=== PATIENT | male | born 1955 | race African-American/Black ===

== ENCOUNTER → 2018-01-20 08:11 | Outpatient (CLI) | payer OTHER, SELFPAY ==
[2018-01-20 08:59] LABS: AST(SGOT) 19 U/L (15-37); Alanine Aminotransfer ALT/SGPT 26 U/L (16-61)
== END ==
PROVIDERS: Family Provider Family Medicine; PCP Family Medicine; Visit Provider Podiatrist
DX: B35.1 Tinea unguium (principal)
CPT/HCPCS: 36415; 84450; 84460

== ENCOUNTER → 2018-04-19 08:36 | Outpatient (CLI) | payer OTHER, SELFPAY ==
[2018-04-19 10:34] LABS: Absolute Lymphocyte Count 1.83 X10^3/ul (0.83-4.51); Absolute Neutrophil Count 1.1 X10^3/uL (2.0-7.7); Basophil# 0.01 X10^3/uL; Basophil% 0.3 % (0-1); Eosinophil# 0.05 X10^3/uL; Eosinophils% 1.5 % (0-5); Hematocrit 44.2 % (40-54); Hemoglobin 14.9 g/dl (13.0-16.5); Lymphocyte # 1.83 X10^3/ul (4.0); Lymphocyte % 55.8 % (19-41); Mean Corp Hgb Conc 33.7 g/gl (32-36); Mean Corpuscular Hgb 29.9 pg (27.0-32.0); Mean Corpuscular Volume 88.6 fL (80-94); Mean Platelet Vol. 10.8 fl (6.2-12.0); Monocyte# 0.31 X10^3/uL; Monocyte% 9.5 % (0-10); Neutrophil # 1.07 X10^3/uL (2.7-7.7); Neutrophil % 32.6 % (47-70); Platelet Count 169 K/mm3 (150-450); RBC Distribution Width CV 12.7 % (11.6-14.6); RBC Distribution Width SD 40.5 fl (35.1-43.9); Red Blood Count 4.99 M/mm3 (4.6-6.2); White Blood Count 3.3 K/mm3 (4.4-11.0)
[2018-04-19 10:36] LABS: POSITIVE COUNT NO; POSITIVE DIFFERENTIAL NO; POSITIVE MORPHOLOGY NO
[2018-04-19 11:02] LABS: Anion Gap 8 (5-15); BUN 18 mg/dL (7-18); BUN/Creat Ratio 19.9 RATIO (10-20); Calcium,Total 8.4 mg/dL (8.5-10.1); Chloride 106 mmol/L (98-107); Cholesterol 217 mg/dL (200); EST Glomerular Filtration Rate 91 mL/min (>60); Est Glom Filt Rate - Afr Amer 110 mL/min (>60); Glucose 94 mg/dL (74-106); High Density Lipoprotein 59 mg/dL; Potassium 3.6 mmol/L (3.5-5.1); Sodium Level 140 mmol/L (136-145); Thyroid Stim Hormone (TSH) 2.71 uIU/mL (0.358-3.74); Triglycerides 62 mg/dL; Very Low Density Lipoprotein 12 mg/dL (5-40)
== END ==
PROVIDERS: Family Provider Family Medicine; PCP Family Medicine; Visit Provider Family Medicine
DX: I10 Essential (primary) hypertension (principal); R00.2 Palpitations
CPT/HCPCS: 36415; 80048; 80061; 84443; 85025

== ENCOUNTER 2018-09-21 08:00 | Outpatient (RCR) | payer OTHER, SELFPAY ==
--- NOTE | 2018-08-17 10:29 | HP.PTEVAL ---
Patient's Visit Information ELBA KIRK is a 62 year old M referred to Physical Therapy by Shruthi Eldridge MD with a diagnosis of LUMBAR STRAIN. Date of Evaluation: 08/17/18 Physical Therapist: James Chaidez PT, - Visit Plan Frequency: 2x /Week Duration: 6 Weeks Plan: ARLETTE EX'S ,MANULA THERAPY ,PROGRESSION TO STABILIZATION,POSTURAL EX',MODALITIES NEEDED - Subjective Subjective: This 62 y/o male presenst to physical therapy with lumbar strain. Patient has had lumbar pain 10 years. Patient has been working at [employer] many years. Patient symptoms have been intermmtant with symptoms worse past 1 1/2. Patient had incidence of pain in lumbar bent over working in garage felt sharp pain. Patient bent over trimming toenails caused lumbar pain had to go to ER. Pain symmtrical lumbar . Symptoms worse with sitting,bending,lifting,. Symptoms better on the move walking. Coughing/sneezing +. Denies parathesia /tingling. Patient sleeping okay. Patient pain affects QOL ,job demands. SOCAIL : . VOCATION: [employer] - Pain Bilateral Back Pain Intensity (Out of 10): 2 Pain Intensity Range: 10 - Objective POSTURE: mild foward posture. GAIT: normal germán. NEURO: denies parathesia/tingling ,reflexes L3-4,L4-5,L5-S1. PALAPTION: unremarkable. SYMMTRIES: align. FLEXABLITY: hams min loss. LUMBAR ROM: flexion mod loss decrease curve reversal,extension min loss ,side gides min loss - Special Tests L/S Slump test left side: Negative L/S Slump test right side: Negative L/S Left Straight Leg Raise: Negative L/S Right Straight Leg Raise: Negative Lumbar Standing: Flexion - Mechanical Response: No effect Lumbar Standing: Flexion - Symptoms During Testing: Increases Lumbar Standing: Flexion - Symptoms After Testing: Worse Lumbar Standing: Extension - Mechanical Response: No effect Lumbar Standing: Extension - Symptoms During Testing: Decreases Lumbar Standing: Extension - Symptoms After Testing: Better Lumbar Standing: Right Side Glides - Mechanical Response: No effect Lumbar Standing: Right Side [place] - Symptoms During Testing: No effect Lumbar Standing: Right Side [place] - Symptoms After Testing: No effect Lumbar Standing: Left Side [place] - Mechanical Response: No effect Lumbar Standing: Left Side [place] - Symptoms During Testing: No effect Lumbar Standing: Left Side [place] - Symptoms After Testing: No effect Lumbar Lying: Flexion - Mechanical Response: No effect Lumbar Lying: Flexion - Symptoms During Testing: No effect Lumbar Lying: Flexion - Symptoms After Testing: No effect Lumbar Lying: Extension - Mechanical Response: No effect Lumbar Lying: Extension - Symptoms During Testing: Increases Lumbar Lying: Extension - Symptoms After Testing: Better - Goals Goal 1:: Independant with HEP Goal Time Frame: 4-6 Weeks Goal 2:: Patient to be Independant with posture/bodu mechanics Goal Time Frame: 4-6 Weeks Goal 3:: Patient to decrease lumbar pain by 70% or greater to improve funnction Goal Time Frame: 4-6 Weeks Goal 4:: Patient to improve lumbar ROM WFL for function of recovery Goal Time Frame: 4-6 Weeks Goal 5:: Patient to be d/c to prophalaxis Goal Time Frame: 4-6 Weeks Goal 6:: Patient be able to perform ADLS and job demands with no linmiations Goal Time Frame: 4-6 Weeks - Rehabilitation Potential Physical Therapy Diagnosis: This 62 y/o male presenst with derrangement symmtriacl with decrease lumbar ROM,pain ,. worse with flexion ,decrease with extension ,and postural correction. Rehabilitation Potential: Good - Anticipated Interventions Patient/Client Instruction: Educate patient on: Condition, Plan of Care For the Purpose of:: To decrease pain, To increase ROM, To improve muscle performance and motor function, To improve ability to perform ADL's, To increase tolerance to activity/condition/position, To improve ability of physical actions for home/community/work/leisure, To improve health of tissue, To decrease soft tissue restriction, To increase flexibility/ROM, To reduce risk of recurrence, To improve ability to perform tasks related to life management Therapeutic Exercise to Include: Strength training, Body mechanics, Postural training, Flexibilty training, Dynamic Lumbar Stabilization, Arlette Exercises For the Purpose of:: To decrease pain, To increase ROM, To improve muscle performance and motor function, To increase tolerance to activity/condition/position, To improve performance and independence with ADL's, To improve ability of physical actions for home/community/work/leisure, To improve gait and locomotor functions, To increase flexibility/ROM, To reduce risk of recurrence, To improve ability to perform tasks related to life management Manual Therapy Techniques to Include: Mobilization Comment: LUMBAR For the Purpose of:: To decrease pain, To increase ROM, To improve health of tissue, To decrease soft tissue restriction, To increase flexibility/ROM TENS: Yes IF ES: Yes Cryotherapy (ice pack, ice massage): Yes Thermo therapy (hot pack): Yes Ultrasound (thermal/non thermal): Yes For the Purpose of:: To decrease pain, To increase ROM, To improve health of tissue, To decrease soft tissue restriction Thank you for the opportunity to evaluate your patient. For Medicare and Medicare HMO plans, please review the plan of care and approve it. It will need to be FAXED BACK to us at [phone] for Medicare purposes. Please let me know if there are questions or concerns regarding this plan of care. Physician Signature: Date:
--- NOTE | 2018-09-21 09:34 | HP.PTDCSUM ---
HP - PT D/C Summary It has been my pleasure to treat ELBA KIRK under orders from Shruthi Eldridge MD, for the diagnosis of LUMBAR STRAIN for a total of 9 visit(s). Discharge Date: 09/21/18 Please see the following information for a summary of their discharge status. - Subjective Subjective: Doing good ..no pain except when I sit some soreness - Pain Bilateral Back Pain Intensity (Out of 10): 0 - Overall Improvement % Improvement: 75 - Objective Objective/Function: POSTURE:mild foward posture. GAIT: mild foward reciprocal pattern. NEURO:intact. MMT: quads/hams/hip 4/5. LUMBAR ROM: flexion min loss,extension min loss,side glides min loss. -SLR - Goals Goal 1:: Independant with HEP Goal Progress: Goal Met Goal 2:: Patient to be Independant with posture/bodu mechanics Goal Progress: Goal Met Goal 3:: Patient to decrease lumbar pain by 70% or greater to improve funnction Goal Progress: Goal Met Goal 4:: Patient to improve lumbar ROM WFL for function of recovery Goal Progress: Goal Met Goal 5:: Patient to be d/c to prophalaxis Goal Progress: Goal Met Goal 6:: Patient be able to perform ADLS and job demands with no linmiations Goal Progress: Goal Met - Plan Plan: D/C - D/C Information Discharge Comments: HEP If there are questions or concerns regarding this patient's physical therapy, please feel free to call me at [phone]. Thank you for the referral of this patient. Sincerely, James Chaidez, PT,
== END 2018-09-21 19:00 | disposition home or self-care (01) ==
LOC: PT 08:00
PROVIDERS: Family Provider Family Medicine; PCP Family Medicine; Referring Provider Family Medicine; Visit Provider Family Medicine
DX: S39.012D Strain of muscle, fascia and tendon of lower back, subsequent encounter (principal)
CPT/HCPCS: 97014; 97035; 97110; 97161; 97530; G0283

== ENCOUNTER → 2018-10-20 08:28 | Outpatient (CLI) | payer OTHER, SELFPAY ==
[2018-10-20 10:43] LABS: Anion Gap 9 (5-15); BUN 19 mg/dL (7-18); BUN/Creat Ratio 19.7 RATIO (10-20); Calcium,Total 8.9 mg/dL (8.5-10.1); Chloride 103 mmol/L (98-107); Creatinine, Serum 0.97 mg/dL (0.70-1.30); EST Glomerular Filtration Rate 84 mL/min (>60); Est Glom Filt Rate - Afr Amer 102 mL/min (>60); Glucose 108 mg/dL (74-106); Potassium 3.4 mmol/L (3.5-5.1); Sodium Level 141 mmol/L (136-145)
== END ==
PROVIDERS: Family Provider Family Medicine; PCP Family Medicine; Referring Provider Family Medicine; Visit Provider Family Medicine
DX: I10 Essential (primary) hypertension (principal)
CPT/HCPCS: 36415; 80048

== ENCOUNTER → 2018-11-15 08:55 | Outpatient (CLI) | payer OTHER, SELFPAY ==
[2017-06-19 16:36] VITALS: BMI 27.2
[2018-11-15 10:06] LABS: Absolute Lymphocyte Count 2.05 X10^3/ul (0.83-4.51); Basophil# 0.01 X10^3/uL; Basophil% 0.3 % (0-1); Eosinophil# 0.24 X10^3/uL; Eosinophils% 6.2 % (0-5); Hematocrit 46.8 % (40-54); Hemoglobin 16.1 g/dl (13.0-16.5); Lymphocyte # 2.05 X10^3/ul (4.0); Lymphocyte % 52.8 % (19-41); Mean Corp Hgb Conc 34.4 g/gl (32-36); Mean Corpuscular Hgb 30.3 pg (27.0-32.0); Mean Platelet Vol. 10.9 fl (6.2-12.0); Monocyte# 0.54 X10^3/uL; Monocyte% 13.9 % (0-10); Neutrophil # 1.04 X10^3/uL (2.7-7.7); Neutrophil % 26.8 % (47-70); POSITIVE COUNT NO; POSITIVE DIFFERENTIAL NO; POSITIVE MORPHOLOGY NO; Platelet Count 192 K/mm3 (150-450); RBC Distribution Width CV 12.4 % (11.6-14.6); RBC Distribution Width SD 40.1 fl (35.1-43.9); Red Blood Count 5.32 M/mm3 (4.6-6.2); White Blood Count 3.9 K/mm3 (4.4-11.0)
[2018-11-15 10:23] LABS: AST(SGOT) 18 U/L (15-37); Alanine Aminotransfer ALT/SGPT 33 U/L (16-61); Albumin, Serum 3.6 g/dL (3.2-5.0); Alkaline Phosphatase 56 U/L (45-117); Anion Gap 7 (5-15); BUN 19 mg/dL (7-18); BUN/Creat Ratio 18.8 RATIO (10-20); Calcium,Total 8.6 mg/dL (8.5-10.1); Chloride 105 mmol/L (98-107); Creatinine, Serum 1.01 mg/dL (0.70-1.30); EST Glomerular Filtration Rate 80 mL/min (>60); Est Glom Filt Rate - Afr Amer 97 mL/min (>60); Globulin 3.5 g/dL (2.2-4.2); Glucose 91 mg/dL (74-106); PSA,Total - Annual Screen 2.37 ng/mL (0.00-4.00); Protein, Total 7.1 g/dL (6.4-8.2); Sodium Level 141 mmol/L (136-145); Thyroid Stim Hormone (TSH) 2.86 uIU/mL (0.358-3.74)
== END ==
PROVIDERS: Family Provider Family Medicine; PCP Family Medicine; Visit Provider Family Medicine
DX: L65.9 Nonscarring hair loss, unspecified (principal)
CPT/HCPCS: 36415; 80053; 84153; 84443; 85025; G0103

== ENCOUNTER → 2019-07-10 09:00 | Outpatient (CLI) | payer OTHER, SELFPAY ==
[2017-06-19 16:36] VITALS: BMI 27.2
[2019-07-10 10:12] LABS: Absolute Lymphocyte Count 1.89 X10^3/uL (0.83-4.51); Absolute Neutrophil Count 1.6 X10^3/uL (2.0-7.7); Basophil# 0.02 X10^3/uL; Basophil% 0.5 % (0-1); Eosinophil# 0.08 X10^3/uL; Eosinophils% 1.9 % (0-5); Hematocrit 45.2 % (40-54); Hemoglobin 15.4 g/dL (13.0-16.5); Lymphocyte # 1.89 X10^3/ul (4.0); Lymphocyte % 45.9 % (19-41); Mean Corp Hgb Conc 34.1 g/dL (32-36); Mean Corpuscular Hgb 30.6 pg (27.0-32.0); Mean Corpuscular Volume 89.7 fL (80-94); Monocyte% 12.1 % (0-10); NRBC Flagged by Analyzer 0 % (0-5); Neutrophil # 1.62 X10^3/uL (2.7-7.7); Neutrophil % 39.4 % (47-70); Platelet Count 180 K/mm3 (150-450); RBC Distribution Width CV 11.9 % (11.6-14.6); RBC Distribution Width SD 39.3 fl (35.1-43.9); Red Blood Count 5.04 M/mm3 (4.6-6.2); White Blood Count 4.1 K/mm3 (4.4-11.0)
[2019-07-10 10:31] LABS: Anion Gap 4 (5-15); BUN 15 mg/dL (7-18); BUN/Creat Ratio 15.9 RATIO (10-20); Calcium,Total 8.8 mg/dL (8.5-10.1); Chloride 107 mmol/L (98-107); Creatinine, Serum 0.95 mg/dL (0.70-1.30); EST Glomerular Filtration Rate 86 mL/min (>60); Est Glom Filt Rate - Afr Amer 104 mL/min (>60); Glucose 97 mg/dL (74-106); PSA,Total - Annual Screen 2.92 ng/mL (0.00-4.00); Potassium 3.7 mmol/L (3.5-5.1); Sodium Level 139 mmol/L (136-145)
== END ==
PROVIDERS: Family Provider Family Medicine; PCP Family Medicine; Referring Provider Family Medicine; Visit Provider Family Medicine
DX: Z00.00 Encounter for general adult medical examination without abnormal findings (principal); I10 Essential (primary) hypertension; D72.819 Decreased white blood cell count, unspecified
CPT/HCPCS: 36415; 80048; 84153; 85025; G0103

== ENCOUNTER → 2020-01-23 | Outpatient (CLI) | payer OTHER, SELFPAY ==
[2017-06-19 16:36] VITALS: BMI 27.2
== END | disposition home or self-care (01) ==
LOC: LABSPEC 15:15
PROVIDERS: PCP Family Medicine; Referring Provider Family Medicine; Visit Provider Family Medicine
DX: J02.9 Acute pharyngitis, unspecified (principal)
CPT/HCPCS: 87070; 87077

== ENCOUNTER → 2020-09-02 08:07 | Outpatient (CLI) | payer OTHER, SELFPAY ==
[2020-09-02 10:01] LABS: Absolute Lymphocyte Count 1.68 X10^3/uL (0.83-4.51); Absolute Neutrophil Count 1.4 X10^3/uL (2.0-7.7); Basophil# 0.03 X10^3/uL; Basophil% 0.8 % (0-1); Eosinophil# 0.23 X10^3/uL; Hemoglobin 16.2 g/dL (13.0-16.5); Lymphocyte # 1.68 X10^3/ul (4.0); Mean Corp Hgb Conc 33.1 g/dL (32-36); Mean Corpuscular Hgb 29.6 pg (27.0-32.0); Mean Corpuscular Volume 89.6 fL (80-94); Mean Platelet Vol. 11.9 fl (6.2-12.0); Monocyte# 0.44 X10^3/uL; Monocyte% 11.5 % (0-10); NRBC Flagged by Analyzer 0 % (0-5); Neutrophil # 1.43 X10^3/uL (2.7-7.7); Neutrophil % 37.4 % (47-70); Platelet Count 183 K/mm3 (150-450); RBC Distribution Width CV 12.2 % (11.6-14.6); RBC Distribution Width SD 40.4 fl (35.1-43.9); Red Blood Count 5.47 M/mm3 (4.6-6.2); White Blood Count 3.8 K/mm3 (4.4-11.0)
[2020-09-02 10:32] LABS: Anion Gap 8 (5-15); BUN 9 mg/dL (7-18); Calcium,Total 9.2 mg/dL (8.5-10.1); Chloride 105 mmol/L (98-107); Cholesterol 218 mg/dL (200); Creatinine, Serum 1.12 mg/dL (0.70-1.30); EST Glomerular Filtration Rate 70 mL/min (>60); Est Glom Filt Rate - Afr Amer 85 mL/min (>60); Glucose 90 mg/dL (74-106); High Density Lipoprotein 62 mg/dL; PSA,Total - Annual Screen 2.55 ng/mL (0.00-4.00); Potassium 3.5 mmol/L (3.5-5.1); Sodium Level 139 mmol/L (136-145); Triglycerides 79 mg/dL; Very Low Density Lipoprotein 16 mg/dL (5-40)
== END ==
PROVIDERS: PCP Family Medicine; Visit Provider Family Medicine
DX: Z00.00 Encounter for general adult medical examination without abnormal findings (principal); I10 Essential (primary) hypertension; D72.819 Decreased white blood cell count, unspecified; Z12.5 Encounter for screening for malignant neoplasm of prostate
CPT/HCPCS: 36415; 80048; 80061; 84153; 85025; G0103

== ENCOUNTER → 2020-09-18 10:08 | Outpatient (CLI) | payer OTHER, SELFPAY ==
[2020-09-18 09:21] VITALS: BMI 26.7
== END ==
PROVIDERS: PCP Family Medicine; Referring Provider Internal Medicine Cardiovascular Disease; Visit Provider Internal Medicine Cardiovascular Disease
DX: R00.2 Palpitations (principal)
CPT/HCPCS: 36415; 84443

== ENCOUNTER → 2020-10-08 07:58 | Outpatient (CLI) | payer OTHER, SELFPAY ==
[2020-09-18 09:21] VITALS: BMI 26.7
--- NOTE | 2020-10-08 07:59 | ECHOD_ITS ---
Reason For Study: Arrhythmia Procedure This was a 2D Doppler, Color Flow transthoracic echocardiogram. Exam performed in department. Left Ventricle Normal LV size. Left ventricular systolic function is normal. The estimated ejection fraction is 60 %. No regional wall motion abnormalities noted. Right Ventricle Normal RV size. Normal systolic function. Atria Normal left atrium. Normal right atrium. Mitral Valve Normal mitral valve. Trivial mitral valve insufficiency. Tricuspid Valve Normal tricuspid valve. Mild (1+) tricuspid valve insufficiency. Pulmonary artery systolic pressure is 28 mmHg. Aortic Valve Normal aortic valve. Trisinus/trileaflet aortic valve. Pulmonic Valve The pulmonic valve is not well visualized. Great Vessels Normal aortic root. The pulmonary artery is normal size. Normal inferior vena cava. Pericardium/Pleural No pericardial effusion. MMode/2D Measurements & Calculations LVIDd: 4.4 cm IVSd: 0.99 cm Ao root diam: 3.1 cm LVIDs: 2.8 cm LVPWd: 0.99 cm RVDd: 3.7 cm FS: 36.9 % LAV(MOD-bp): 59.8 ml LVAd ap4: 31.1 cm2 SV(MOD-sp4): 56.2 ml LAV(MOD-bp) Indexed: 28.7 ml/m2 EDV(MOD-sp4): 93.3 ml LAV(MOD-sp2): 66.0 ml EDV(sp4-el): 95.2 ml LAV(MOD-sp4): 51.9 ml LVAs ap4: 17.2 cm2 ESV(MOD-sp4): 37.1 ml ESV(sp4-el): 34.5 ml EF(MOD-sp4): 60.3 % EF(sp4-el): 63.7 % SV(sp4-el): 60.7 ml LA A4 area: 18.7 cm2 LA dimension(2D): 3.6 cm RA A4 area: 16.8 cm2 Doppler Measurements & Calculations MV E max dwayne: 72.9 cm/sec Lat Peak E' Dwayne: 10.2 cm/sec Ao V2 max: 150.1 cm/sec MV A max dwayne: 50.5 cm/sec E/E' lat: 7.2 Ao max P.0 mmHg MV E/A: 1.4 PA V2 max: 119.2 cm/sec TR max dwayne: 244.6 cm/sec TR max P.9 mmHg Interpretation Summary Normal LV size. Left ventricular systolic function is normal. The estimated ejection fraction is 60 %. Pulmonary artery systolic pressure is 28 mmHg. Mild (1+) tricuspid valve insufficiency. Ordering Physician: Pradip Reyes Referring Physician: Shruthi Eldridge M.D. Performed By: Lachelle Sol RDCS
== END ==
PROVIDERS: PCP Family Medicine; Referring Provider Internal Medicine Cardiovascular Disease; Visit Provider Internal Medicine Cardiovascular Disease
DX: R00.2 Palpitations (principal)
CPT/HCPCS: 93225; 93226; 93306

== ENCOUNTER 2020-12-02 08:46 | Day surgery (SDC) | payer OTHER, SELFPAY ==
[2020-11-11 08:57] VITALS: BMI 26.2
--- NOTE | 2020-11-29 09:44 | EKG12_ITS ---
Test Reason : PREOP Blood Pressure : / mmHG Vent. Rate : 089 BPM Atrial Rate : 277 BPM P-R Int : 000 ms QRS Dur : 090 ms QT Int : 346 ms P-R-T Axes : 000 019 028 degrees QTc Int : 420 ms Atrial fibrillation Abnormal ECG Confirmed by NUZHAT CODY, HAMILTON ([id number]), design editor CHICHO HERNÁNDEZ ([id number]) on 12/02/2020 11:00:02 AM Referred By: Abdelrahman Zaman Confirmed By:AVELINA NOLAND MD
[2020-11-29 09:57] LABS: Hematocrit 47.9 % (40-54); Hemoglobin 16.4 g/dL (13.0-16.5); Mean Corp Hgb Conc 34.2 g/dL (32-36); Mean Corpuscular Hgb 30.3 pg (27.0-32.0); Mean Corpuscular Volume 88.5 fL (80-94); Mean Platelet Vol. 11.4 fl (6.2-12.0); Platelet Count 178 K/mm3 (150-450); RBC Distribution Width CV 11.8 % (11.6-14.6); RBC Distribution Width SD 38.2 fl (35.1-43.9); Red Blood Count 5.41 M/mm3 (4.6-6.2); White Blood Count 3.7 K/mm3 (4.4-11.0)
[2020-11-29 10:43] LABS: Anion Gap 4 (5-15); BUN 18 mg/dL (7-18); Calcium,Total 9.1 mg/dL (8.5-10.1); Chloride 104 mmol/L (98-107); Creatinine, Serum 1.06 mg/dL (0.70-1.30); EST Glomerular Filtration Rate 75 mL/min (>60); Est Glom Filt Rate - Afr Amer 91 mL/min (>60); Glucose 87 mg/dL (74-106); Potassium 3.6 mmol/L (3.5-5.1); Sodium Level 138 mmol/L (136-145)
[2020-12-02] VITALS (7 sets, daily range): BP systolic 125–142; BP diastolic 79–90; PULSE 64–71; RESP 16; TEMP 35.9–36.8; O2SAT 99–100; BMI 27.9
--- NOTE | 2020-12-02 05:00 | HP_ITS ---
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 Is patient in pain?: No Allergies No Known Allergies Allergy (Verified 11/11/20 08:58) Medications Amlodipine [Norvasc] 10 mg PO DAILY 06/19/17 [History Confirmed 11/11/20] Enalapril/Hydrochlorothiazide [Enalapril-Hctz 10-25 mg Tablet] 1 tab PO DAILY 06/19/17 [History Confirmed 11/11/20] ibuprofen 600 mg tablet 600 mg PO TID PRN 09/16/20 [History Confirmed 11/11/20] magnesium oxide 500 mg tablet 500 mg PO DAILY 09/16/20 [History Confirmed 11/11/20] zinc 50 mg tablet 50 mg PO DAILY 09/16/20 [History Confirmed 11/11/20] cholecalciferol (vitamin D3) 125 mcg (5,000 unit) capsule 125 mcg PO DAILY 09/18/20 [History Confirmed 11/11/20] [facility] Medical History (Updated 11/11/20 @ 08:57 by Nisa Ramirez) Palpitations (Acute) Essential hypertension (Chronic) Leukopenia (Chronic) Hair loss (Chronic) Back pain (Acute) Osteoarthritis (Acute) Surgical History (Updated 11/11/20 @ 08:57 by Nisa Ramirez) History of excision of epidermal inclusion cyst (Resolved) History of colonoscopy (Acute ~2017) History of surgery on left wrist (Acute) Family History Mother Hypertension Diabetes Brother Hypertension Diabetes Social History (Updated 11/11/20 @ 09:[address] Abdelrahman Zaman MD) Smoking Status: Never smoker alcohol intake: current details: Rarely substance use type: does not use caffeine: Yes (2 cups) Type: coffee HPI HPI HPI: ELBA KIRK, is a 64 M who presents to the office today for HPI HPI Surgical H&P: Yes HPI: ELBA KIRK, is a 64 M who presents to the office today for left groin bulging. The patient has been had left groin bulging especially with lifting for the last year. He does report some discomfort as well. He says he intermittently has a little bit of mild discomfort on the opposite side but no bulging. Patient does not have any nausea or vomiting or fevers or chills at this time. He has no Covid contacts. Patient reports that the pain radiates up into his abdomen. ROS General General: No weight change, appetite, fatigue, colon cancer, breast cancer or weakness HEENT HEENT: No difficulty swallowing, eye injury, eye surgery, swollen glands or hoarseness Endo Endocrine: No thyroid disease, diabetes mellitus, thyroid cancer, Hair loss, heat intolerance or cold intolerance Musc Musculoskeletal: Yes back problems, arthritis and rheumatoid arthritis; no gout or joint pain Cardio Cardiovascular: Yes high blood pressure; no murmur, pacemaker, heart disease, atrial fibrillation, heart attack, heart stent, palpitations, shortness of breat with exertion or chest pain Psych Psychiatric: No depression, anxiety or hearing voices Resp Respiratory: No shortness of breath, No sleep apnea, No cough, No COPD, No asthma, No emphysema, No wheezing Gastro Gastrointestinal: No abdominal pain, No nausea or vomiting, No diarrhea, No constipation, No blood in stool, No acid reflux, No hemorrhoids, No ulcers, No gallbladder problem, No black,tarry stools Jorge Hematologic: No blood thinners, No blood disorders, No bleeding, No anemia, No blood clots Neuro Neurologic: No weakness Exam Const General: cooperative Orientation: alert, oriented x3 HENMT Head: normal to inspection Ears: hearing grossly normal bilaterally Eyes General: appearance normal, both eyes and all related structures Visual Tripp: normal visual tripp by confrontation Neck Neck: normal visual inspection Chest Chest palpation & inspection: normal inspection of the chest Resp Effort & Inspection: normal respiratory effort Auscultation: clear to auscultation bilaterally Cardio Rate: regular rate Rhythm: regular rhythm Heart Sounds: no murmurs GI Inspection: non-distended Palpation: soft, hernia indirect inguinal on the left, nontender Musc Cervical Spine: normal cervical lordosis, cervical ROM normal Skin General: no rashes or lesions noted Neuro General: alert, oriented x3 Cranial Nerves: CN's II-XI intact bilaterally Cognition: normal cognition Extrem General: normal to inspection, full ROM Psych Appearance: grossly normal Affect: normal affect Assessment & Plan Problems 1. Inguinal hernia, left K40.90 Plan The patient has a soft reducible left inguinal hernia. I discussed left inguinal hernia repair with him in detail. I discussed robotic assisted laparoscopic approach. The patient understands and would like to proceed. I discussed the risks of the procedure including but not limited to bleeding, infection, chronic groin pain, injury to spermatic cord, injury to underlying bowel or bladder. The patient would also like contralateral hernia repaired if it is present. We will schedule for robotic assisted laparoscopic left inguinal hernia repair with mesh, possible bilateral. We discussed the current risks associated with COVID-19. While it is understood that there is a community spread of COVID-19, the risk of radha COVID-19 while at [facility] ([facility]) is very low; however, the risk cannot be completely mitigated because of the community spread of the disease. We discussed in detail the risk of exposure to and/or potential harm posed by the COVID-19 virus with having a surgery/procedure at this time versus the risk of delaying the surgery/procedure. It is not possible to know either the risk of delaying the surgery or procedure or chance of getting an infection with perfect accuracy, but a joint decision was made to proceed at this time with the scheduled surgery/procedure as indicated on the consent form. Patient was notified that we will need to comply with any screening or testing [facility] wishes to perform or that surgery may be delayed for any positive results. Abdelrahman Zaman MD Pager: [facility] [address] [place] [address], [address] [place] [address] Office: Coding Level of Care Code Off vis,new,level 4 Diagnoses Inguinal hernia, left K40.90 Time Spent (min) 45 I have re-examined the patient. There are no clinical changes since date of exam.
[2020-12-02] MEDS: Lactated Ringers 1,000 ML 100 ML IV (09:32)
[2020-12-02] MEDS: Cefazolin 2 GM in 0.9% Normal Saline 100 ML IV (10:24)
[2020-12-02] MEDS: Bupivacaine Mpf 0.5% 30 ML VIAL (10:45)
--- NOTE | 2020-12-02 11:31 | PN_ITS ---
Progress Note An addendum to the H&P I did discuss with him prior to surgery possible bilateral hernia repair if the right inguinal hernia is present and he did want to proceed with right inguinal hernia repair if it is present. Abdelrahman Zaman MD Pager: [facility] [address] [place] [address], [address] [place] [address] Office: STROKE Vital Signs/Narrative: Vital Signs Temp Pulse Resp BP Pulse Ox 12/02/20 09:24 98.3 F 69 16 128/87 H 100
--- NOTE | 2020-12-02 11:31 | PCM.PN.BLA ---
Progress Note An addendum to the H&P I did discuss with him prior to surgery possible bilateral hernia repair if the right inguinal hernia is present and he did want to proceed with right inguinal hernia repair if it is present. Abdelrahman Zaman MD Pager: [facility] [address] [place] [address], [address] [place] [address] Office: STROKE Vital Signs/Narrative: Vital Signs Temp Pulse Resp BP Pulse Ox 12/02/20 09:24 98.3 F 69 16 128/87 H 100
--- NOTE | 2020-12-02 11:34 | PCM.OPRPT ---
Problem List (1) Left inguinal hernia Status: Acute Report of Operation Date of Procedure: 12/02/20 Pre-Operative Diagnosis: Left inguinal hernia Post-Operative Diagnosis: Bilateral inguinal hernia with distended small and large bowel Surgery/Procedure Performed:: Exploratory laparoscopy Description of Procedure: Patient was brought back to the operating room and general anesthesia was induced. The abdomen was prepped and draped in usual sterile fashion. An area superior to the umbilicus was selected and a small vertical incision was made. The fascia was elevated and Veress needle was placed into the abdomen without any resistance. A drop test was performed and there is no aspirated fluid and saline flowed easily. The abdomen was insufflated to 15 mmHg. The Veress needle was removed and port and camera port was placed into the abdomen. The abdomen was inspected and there was largely distended small and large bowel. The abdomen was inspected closely and there appeared to be no succus or injury to the small bowel. The distal small bowel appeared very distended as did the entire right transverse and descending colon and into the sigmoid colon. It did not appear to be insufflated with air but rather fluid contents. I was unable to perform laparoscopic repair. The patient did have bilateral inguinal hernias. I discussed this with the patient's and she did not want me to convert to open repair. She believe that he would not want an open repair and I did not discuss open repair with him. At this point I remove the camera from the abdomen as well as the port and the air is allowed to desufflate. The ventral incision was closed with 4-0 Monocryl suture and Steri-Strips and injected with local anesthesia. The patient was then awoken and taken to PACU in stable condition and will follow up with me for discussion of repeat surgery with bowel prep. - Admit VTE Documentation VTE Mechan Device Prophylaxis: SCD's
--- NOTE | 2020-12-02 11:39 | DCINST_ITS ---
Discharge Diet: Light diet - advance as tolerated Discharge Activity: Return to Normal Activity, May Shower May shower in (days): 1 Call your doctor if your incision/area has: Continuous Slow Oozing, Sudden Increased Bleeding, Increased Pain/ Swelling, Increased Redness, Foul Smelling D ischarge, Swelling at the incision site Call your doctor if you observe: Fever of 101 or Higher Suture Line Care: Avoid Pulling/Pushing, Avoid Pinching/Bending Change Dressing in (Days):: 2 - Leave steri-strips in place for 1 week. Allergies/Adverse Reactions: Allergies No Known Allergies Allergy (Verified 12/02/20 08:58) Medications to take at Discharge Amlodipine [Norvasc] 10 mg PO DAILY 06/19/17 Enalapril/Hydrochlorothiazide [Enalapril-Hctz 10-25 mg Tablet] 1 tab PO DAILY 06/19/17 ibuprofen 600 mg tablet 600 mg PO TID PRN 09/16/20 magnesium oxide 500 mg tablet 500 mg PO DAILY 09/16/20 zinc 50 mg tablet 50 mg PO DAILY 09/16/20 cholecalciferol (vitamin D3) 125 mcg (5,000 unit) capsule 125 mcg PO DAILY 09/18/20 Primary Care Physician: Shruthi Eldridge MD [Primary Care Provider] - Test Results: Test results from this visit will be discussed in further detail at your follow- up appointment, if applicable. Please Follow Up With: Abdelrahman Zaman MD When: Call for phone appointment to discuss rescheduling surgery [phone]
== END 2020-12-02 13:13 | disposition home or self-care (01) ==
LOC: SDC 08:46 → AC 08:47
PROVIDERS: Anesthesiology; PCP Family Medicine; Referring Provider Surgery; Visit Provider Surgery
PROC: (CPT 49320; principal; 2020-12-02 10:10)
DX: K40.20 Bilateral inguinal hernia, without obstruction or gangrene, not specified as recurrent (principal); Z53.8 Procedure and treatment not carried out for other reasons; Z20.822 Contact with and (suspected) exposure to COVID-19; I48.91 Unspecified atrial fibrillation; I10 Essential (primary) hypertension; Z79.899 Other long term (current) drug therapy; M19.90 Unspecified osteoarthritis, unspecified site
CPT/HCPCS: 00840; 49320; 36415; 80048; 85027; 87426; 93005; C9803; J7120; J2405

== ENCOUNTER 2020-12-05 08:42 | Day surgery (SDC) | payer OTHER, SELFPAY ==
[2020-12-02 09:24] VITALS: BMI 27.9
[2020-12-05] VITALS (8 sets, daily range): BP systolic 119–143; BP diastolic 75–85; PULSE 60–78; RESP 16–116; TEMP 36.4–37; O2SAT 97–100; BMI 27.4
--- NOTE | 2020-12-05 06:00 | HP_ITS ---
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 Is patient in pain?: No Allergies No Known Allergies Allergy (Verified 11/11/20 08:58) Medications Amlodipine [Norvasc] 10 mg PO DAILY 06/19/17 [History Confirmed 11/11/20] Enalapril/Hydrochlorothiazide [Enalapril-Hctz 10-25 mg Tablet] 1 tab PO DAILY 06/19/17 [History Confirmed 11/11/20] ibuprofen 600 mg tablet 600 mg PO TID PRN 09/16/20 [History Confirmed 11/11/20] magnesium oxide 500 mg tablet 500 mg PO DAILY 09/16/20 [History Confirmed 11/11/20] zinc 50 mg tablet 50 mg PO DAILY 09/16/20 [History Confirmed 11/11/20] cholecalciferol (vitamin D3) 125 mcg (5,000 unit) capsule 125 mcg PO DAILY 09/18/20 [History Confirmed 11/11/20] [facility] Medical History (Updated 11/11/20 @ 08:57 by Nisa Ramirez) Palpitations (Acute) Essential hypertension (Chronic) Leukopenia (Chronic) Hair loss (Chronic) Back pain (Acute) Osteoarthritis (Acute) Surgical History (Updated 11/11/20 @ 08:57 by Nisa Ramirez) History of excision of epidermal inclusion cyst (Resolved) History of colonoscopy (Acute ~2017) History of surgery on left wrist (Acute) Family History Mother Hypertension Diabetes Brother Hypertension Diabetes Social History (Updated 11/11/20 @ 09:[address] Abdelrahman Zaman MD) Smoking Status: Never smoker alcohol intake: current details: Rarely substance use type: does not use caffeine: Yes (2 cups) Type: coffee HPI HPI HPI: ELBA KIRK, is a 64 M who presents to the office today for HPI HPI Surgical H&P: Yes HPI: ELBA KIRK, is a 64 M who presents to the office today for left groin bulging. The patient has been had left groin bulging especially with lifting for the last year. He does report some discomfort as well. He says he intermittently has a little bit of mild discomfort on the opposite side but no bulging. Patient does not have any nausea or vomiting or fevers or chills at this time. He has no Covid contacts. Patient reports that the pain radiates up into his abdomen. ROS General General: No weight change, appetite, fatigue, colon cancer, breast cancer or weakness HEENT HEENT: No difficulty swallowing, eye injury, eye surgery, swollen glands or hoarseness Endo Endocrine: No thyroid disease, diabetes mellitus, thyroid cancer, Hair loss, heat intolerance or cold intolerance Musc Musculoskeletal: Yes back problems, arthritis and rheumatoid arthritis; no gout or joint pain Cardio Cardiovascular: Yes high blood pressure; no murmur, pacemaker, heart disease, atrial fibrillation, heart attack, heart stent, palpitations, shortness of breat with exertion or chest pain Psych Psychiatric: No depression, anxiety or hearing voices Resp Respiratory: No shortness of breath, No sleep apnea, No cough, No COPD, No asthma, No emphysema, No wheezing Gastro Gastrointestinal: No abdominal pain, No nausea or vomiting, No diarrhea, No constipation, No blood in stool, No acid reflux, No hemorrhoids, No ulcers, No gallbladder problem, No black,tarry stools Jorge Hematologic: No blood thinners, No blood disorders, No bleeding, No anemia, No blood clots Neuro Neurologic: No weakness Exam Const General: cooperative Orientation: alert, oriented x3 HENMT Head: normal to inspection Ears: hearing grossly normal bilaterally Eyes General: appearance normal, both eyes and all related structures Visual Tripp: normal visual tripp by confrontation Neck Neck: normal visual inspection Chest Chest palpation & inspection: normal inspection of the chest Resp Effort & Inspection: normal respiratory effort Auscultation: clear to auscultation bilaterally Cardio Rate: regular rate Rhythm: regular rhythm Heart Sounds: no murmurs GI Inspection: non-distended Palpation: soft, hernia indirect inguinal on the left, nontender Musc Cervical Spine: normal cervical lordosis, cervical ROM normal Skin General: no rashes or lesions noted Neuro General: alert, oriented x3 Cranial Nerves: CN's II-XI intact bilaterally Cognition: normal cognition Extrem General: normal to inspection, full ROM Psych Appearance: grossly normal Affect: normal affect Assessment & Plan Problems 1. Inguinal hernia, left K40.90 Plan The patient has a soft reducible left inguinal hernia. I discussed left inguinal hernia repair with him in detail. I discussed robotic assisted laparoscopic approach. The patient understands and would like to proceed. I discussed the risks of the procedure including but not limited to bleeding, infection, chronic groin pain, injury to spermatic cord, injury to underlying bowel or bladder. The patient would also like contralateral hernia repaired if it is present. We will schedule for robotic assisted laparoscopic left inguinal hernia repair with mesh, possible bilateral. We discussed the current risks associated with COVID-19. While it is understood that there is a community spread of COVID-19, the risk of radha COVID-19 while at [facility] ([facility]) is very low; however, the risk cannot be completely mitigated because of the community spread of the disease. We discussed in detail the risk of exposure to and/or potential harm posed by the COVID-19 virus with having a surgery/procedure at this time versus the risk of delaying the surgery/procedure. It is not possible to know either the risk of delaying the surgery or procedure or chance of getting an infection with perfect accuracy, but a joint decision was made to proceed at this time with the scheduled surgery/procedure as indicated on the consent form. Patient was notified that we will need to comply with any screening or testing [facility] wishes to perform or that surgery may be delayed for any positive results. Abdelrahman Zaman MD Pager: [facility] [address] [place] [address], [address] [place] [address] Office: Coding Level of Care Code Off vis,new,level 4 Diagnoses Inguinal hernia, left K40.90 Time Spent (min) 45 I attempted inguinal hernia repair 2 days ago but the patient had a large amount of bowel dilation and I was unable to visualize the hernia. I was able to visualize that the patient had bilateral inguinal hernias instead of just the left. I discussed this with his family member she did not know if he would want to proceed with open hernia repair. The patient was awoken and sent home and I did discuss with the patient and he would like bilateral laparoscopic inguinal hernia repair with mesh and if this is unable to be accomplished today I will plan open left inguinal hernia repair. I did discuss open repair with the patient and he is agreeable. The patient was given MiraLAX bowel prep to hopefully decrease the amount of dilation of bowel and reports he did have several bowel movements. Abdelrahman Zaman MD Pager: [facility] [address] [place] [address] [address] [place] [address] Office:
[2020-12-05] MEDS: Lactated Ringers 1,000 ML 100 ML IV ×2 (09:40→11:45)
[2020-12-05] MEDS: Cefazolin 2 GM in 0.9% Normal Saline 100 ML IV (10:53)
[2020-12-05] MEDS: Bupivacaine Mpf 0.5% 30 ML VIAL (11:12)
--- NOTE | 2020-12-05 13:45 | OP.PCM_ITS ---
Problem List (1) Bilateral inguinal hernia Status: Acute Qualifiers: Obstruction and gangrene presence: without obstruction or gangrene Recurrence: non-recurrent Qualified Code(s): K40.20 - Bilateral inguinal hernia, without obstruction or gangrene, not specified as recurrent Report of Operation Date of Procedure: 12/05/20 Pre-Operative Diagnosis: Bilateral inguinal hernias Post-Operative Diagnosis: Same Surgery/Procedure Performed:: Robotic assisted laparoscopic bilateral inguinal hernia repair with mesh Description of Procedure: Patient was brought back to the operating room and general anesthesia was induced. The abdomen was prepped and draped in usual sterile fashion. An incision was made superior to the midline and deepened to the fascia. A port was placed through the fascia and the abdomen is insufflated 15 mmHg. The abdomen was inspected and the patient was placed in Trendelenburg position. The bowel dilation with a previous surgery had resolved. Under direct visualization a right lower quadrant and left lower quadrant 8 mm port replaced. The patient was placed in Trendelenburg position and the robot was docked. An incision was made in the peritoneum over the left inguinal region and was deepened to the hernia sac. The hernia was reduced and the adhesions to the hernia sac were lysed. Dissection was carried posteriorly. Next a piece of progrip mesh was unfolded in the left groin and placed over the hernia. There was good overlap of tissue. The peritoneum was reapproximated using running 3-0V lock suture. Next attention was paid to the right groin. An incision in the peritoneum was made and the dissection was deepened and carried inferiorly until the hernia sac was reduced on the right side. Progrip mesh was unfolded into the right groin and covered to the right inguinal hernia. The mesh was fully covering the defect and the peritoneum was reapproximated using a running 3-0V lock suture. The mesh was completely covered on both sides by peritoneum at the end of the procedure. The instruments were removed and the robot was undocked and the por ts were removed after the abdomen was allowed to desufflate. The incisions were anesthetized and closed with interrupted 4-0 Monocryl sutures as well as Steri- Strips and bandages. The scrotum was checked at the end of the case and contain both testicles. The patient was awoken and taken to PACU in stable condition. Grafts/Implants Used: Progrip mesh bilaterally - Admit VTE Documentation VTE Mechan Device Prophylaxis: SCD's
--- NOTE | 2020-12-05 13:55 | PCM.DC.HER ---
Discharge Diet: Light diet - advance as tolerated Discharge Activity: Return to Normal Activity, May Not Drive - for 2-3 days or while taking narcotic pain meds., May Shower - with the bandage in place 1-2 days after surgery. Lifting Restrictions: 20 pounds for 4 weeks. Additional Activity Instructions:: Climbing stairs is fine, walking is encouraged. Sitting in bed may be uncomfortable. Sitting up using your lateral muscles (sitting up sideways) is usually more comfortable. Do not drive, work heavy equipment of sign legal documents for 24 hours. If your hernia repair was an ingunial repair, you may have scrotal swelling, an ice pack and/or athletic support can provide more comfort. Pain medications may cause nausea, you should typically eat light foods as you take your pain medications. Pain medications may also cause constipation. If you have difficulty with this, discuss with your doctor. Call your doctor if your incision/area has: Continuous Slow Oozing, Sudden Increased Bleeding, Increased Pain/ Swelling, Increased Redness, Foul Smelling Discharge Call your doctor if you observe: Fever of 101 or Higher Suture Line Care: Avoid Pulling/Pushing, Avoid Pinching/Bending Change Dressing in (Days):: 3 - Leave steri-strips for 1 week. May protect with a guaze bandaid. Cleanse incision/area with: Keep Dressing Clean & Dry Allergies/Adverse Reactions: Allergies No Known Allergies Allergy (Verified 12/03/20 09:21) Medications to take at Discharge Amlodipine [Norvasc] 10 mg PO DAILY 06/19/17 Enalapril/Hydrochlorothiazide [Enalapril-Hctz 10-25 mg Tablet] 1 tab PO DAILY 06/19/17 ibuprofen 600 mg tablet 600 mg PO TID PRN 09/16/20 magnesium oxide 500 mg tablet 500 mg PO DAILY 09/16/20 zinc 50 mg tablet 50 mg PO DAILY 09/16/20 cholecalciferol (vitamin D3) 125 mcg (5,000 unit) capsule 125 mcg PO DAILY 09/18/20 Oxycodone HCl/Acetaminophen [Percocet 5-325 mg Tablet] 1 - 2 tab PO Q6H PRN PRN 3 Days #15 tablet 12/05/20 The following prescriptions were given: Oxycodone HCl/Acetaminophen [Percocet 5-325 mg Tablet] 1 - 2 tab PO Q6H PRN PRN 3 Days #15 tablet PRN Reason: Pain Score 4-10/10 Transmission Status: Sent to [facility] Primary Care Physician: Shruthi Eldridge MD [Primary Care Provider] - Test Results: Test results from this visit will be discussed in further detail at your follow-up appointment, if applicable. Please Follow Up With: Abdelrahman Zaman MD When: Please call to schedule 2 week follow up appointment. [phone]
== END 2020-12-05 15:05 | disposition home or self-care (01) ==
LOC: SDC 08:43 → AC 08:43
PROVIDERS: PCP Family Medicine; Visit Provider Surgery
PROC: (CPT 49650; principal; 2020-12-05 10:10)
DX: K40.20 Bilateral inguinal hernia, without obstruction or gangrene, not specified as recurrent (principal); I10 Essential (primary) hypertension; M06.9 Rheumatoid arthritis, unspecified; M19.90 Unspecified osteoarthritis, unspecified site; Z79.899 Other long term (current) drug therapy
CPT/HCPCS: 00840; 49650; S2900; J7120; J2405

== ENCOUNTER 2021-07-06 08:09 | Inpatient (IN) | payer OTHER, SELFPAY ==
[2021-07-06] VITALS (31 sets, daily range): BP systolic 101–132; BP diastolic 62–80; PULSE 73–95; RESP 20–40; TEMP 36.3–38.8; O2SAT 83–99; BMI 25.2
--- NOTE | 2021-07-06 08:23 | EKG12_ITS ---
Test Reason : Blood Pressure : / mmHG Vent. Rate : 089 BPM Atrial Rate : 089 BPM P-R Int : 102 ms QRS Dur : 086 ms QT Int : 360 ms P-R-T Axes : 050 -10 023 degrees QTc Int : 438 ms Sinus rhythm with short CA Otherwise normal ECG Confirmed by NUZHAT CODY, HAMILTON ([id number]), editorial project manager CHICHO HERNÁNDEZ ([id number]) on 07/08/2021 8:10:12 AM Referred By: TEMITOPE Confirmed By:AVELINA NOLAND MD
--- NOTE | 2021-07-06 08:24 | CT_ITS ---
STUDY: CTA CHEST REASON FOR EXAM: Male, 65 years old. hypoxia pulmonary embolism RADIATION DOSAGE (If Supplied By Facility): CTDIvol = ( 11.25 ) mGy, DLP = ( 407.79 ) mGycm TECHNIQUE: The examination was performed with the intravenous administration of 100mL Isovue 370. Post-processing of the angiographic images was performed, with multiplanar reformation and 3D reconstruction. Individualized dose optimization techniques were used for this CT. COMPARISON: None. FINDINGS: Normal enhancement of the main pulmonary artery and right and left pulmonary arteries. Normal enhancement of the bilateral peripheral pulmonary arteries. There is no demonstrated pulmonary embolism. Normal thoracic aorta and visualized great vessels. There is no demonstrated aortic dissection. Normal heart and pericardium. Normal mediastinum. Normal hilar regions. Normal visualized trachea and bronchi. The lungs are well expanded. Bilateral patchy groundglass and alveolar opacities consistent with bilateral pneumonia. Normal pleura. Normal chest wall structures. Normal osseous structures. Normal visualized upper abdomen. CT/CTA Chest W/WO Contrast IMPRESSION: 1. No CT evidence of pulmonary embolism. 2. Bilateral pneumonia. Commonly reported imaging features of Covid 19 pneumonia are present. Other processes such as influenza pneumonia and organizing pneumonia as can be seen from drug toxicity or connective tissue disease can cause a similar imaging findings. Electronically Signed: Ben Irving MD at 10:10 EDT Tel , Service support ,
--- NOTE | 2021-07-06 08:25 | EDS_ITS ---
HPI History of Present Illness Chief Complaint: General Illness Informant: patient and spouse/S.O. Narrative Narrative: 65-year-old male history of hypertension presents the emergency department with 10 days of being ill. He notes progressive vomiting diarrhea body aches fever dyspnea fatigue slight headache and congestion. He notes minimal sputum production. He is not Covid vaccinated. He states he has been urinating normally. [facility] Medical History Back pain Essential hypertension Hair loss Leukopenia Osteoarthritis Palpitations Home Medications amlodipine 10 mg PO DAILY 06/19/17 [History Last Taken 12/02/20] enalapril-hydrochlorothiazide 1 tab PO DAILY 06/19/17 [History Last Taken Unknown] ibuprofen 600 mg tablet 600 mg PO TID PRN 09/16/20 [History Last Taken Unknown] magnesium oxide 500 mg tablet 500 mg PO DAILY 09/16/20 [History Last Taken Unknown] zinc 50 mg tablet 50 mg PO DAILY 09/16/20 [History Last Taken Unknown] cholecalciferol (vitamin D3) 125 mcg (5,000 unit) capsule 125 mcg PO DAILY 09/18/20 [History Last Taken Unknown] Allergy/AdvReac Type Severity Reaction Status Date / Time No Known Allergies Allergy Verified 07/06/21 08:26 Family History Mother Hypertension Diabetes Brother Hypertension Diabetes Surgical History History of colonoscopy (~2017) History of excision of epidermal inclusion cyst History of surgery on left wrist Social History Smoking Status: Never smoker alcohol intake: current details: Rarely substance use type: does not use caffeine: Yes (2 cups) Type: coffee ROS ROS ED Constitutional Constitutional ED: Reports chills, fever(s) and sweats; Denies weight loss Eyes Eyes: Denies change in vision or diplopia ENT ENT ED: Reports rhinorrhea; Denies ear pain or sore throat Cardiovascular Cardiovascular: Denies chest pain, orthopnea, palpitations or racing heartbeat Respiratory/Chest Respiratory/Chest: Reports cough, dyspnea and dyspnea on exertion; Denies orthopnea Gastrointestinal Gastrointestinal: Reports diarrhea, nausea and vomiting; Denies abdominal pain Genitourinary Genitourinary ED: Denies dysuria, hematuria or urinary frequency Musculoskeletal Musculoskeletal: Reports myalgias; Denies arthralgias Integumentary Denies abscess or rash Neurologic Neurologic: Reports headache(s); Denies weakness Psychiatric Psychiatric: Denies anxiety, depression, suicidal ideation or suicidal thoughts Endocrine Endocrinology: Denies polydipsia, polyphagia or polyuria Allergic/Immunologic Allergic/Immunologic ED: Denies mouth swelling, tongue swelling or urticaria EXAM Physical Exam Narrative Exam Narrative: Patient is about 71% on room air. He appears globally fatigued Const Vital Signs: 07/06/21 08:11 07/06/21 08:27 07/06/21 09:11 Temperature 99.1 F 101.8 F H Temperature Source Temporal Axillary Pulse Rate 95 89 Respiratory Rate 20 H 35 H Respiratory Effort Short of Breath Labored Respiratory Pattern Normal Blood Pressure 101/69 132/73 H Blood Pressure Mean 79 92 Pulse Ox 85 89 94 Oxygen Delivery Method Room Air Nasal Cannula Nasal Cannula Oxygen Flow Rate (L/min) 6 6 07/06/21 10:04 Temperature 99.2 F H Temperature Source Axillary Pulse Rate 89 Respiratory Rate 35 H Respiratory Effort Respiratory Pattern Blood Pressure 106/62 Blood Pressure Mean 76 Pulse Ox 94 Oxygen Delivery Method Nasal Cannula Oxygen Flow Rate (L/min) 6 Positive well nourished and well developed General Appearance ED: well developed HEENT Reports normocephalic, head/scalp atraumatic and moist mucous membranes Eyes PERRL and EOMs intact bilaterally Neck no lymphadenopathy, supple and no JVD Resp clear to auscultation bilaterally Resp Narrative: Dry cough tachypneic Cardio regular rate, regular rhythm and no murmurs GI normal to inspection, nondistended, normoactive bowel sounds and non-tender Palpation: soft Back/Spine no CVA tenderness and normal ROM Extremity normal to inspection General Extremety ED: Negative for edema General Extremity: Negative for edema Neuro oriented x3 and CN's II-XII intact bilaterally Sensorium / Orientation: alert Motor Exam: strength 5/5 throughout Psych mental status grossly normal Mood & Affect: Negative for depressed or tearful Skin no rashes or lesions noted and no wounds MDM MDM MDM Narrative Medical decision making narrative: Basic blood work was obtained. White count 5.1 platelets 147. Potassium 3.1. Lactic acid is normal at 1.8. Patient received supplemental oxygen, dexamethasone, Zofran, Tylenol, and potassium chloride. CTA of the chest was obtained. This was negative for pulmonary embolism but did demonstrate bilateral groundglass and alveolar opacities. Pa rj plan will be admission into the hospital Lab Data Attestation: I reviewed the patient's lab results. Labs: Laboratory Results - last 24 hr 07/06/21 07/06/21 07/06/21 08:35 08:35 08:35 WBC 5.1 RBC 5.32 Hgb 16.2 Hct 46.3 MCV 87.0 MCH 30.5 MCHC 35.0 RDW Std Deviation 38.2 RDW Coeff of Sue 11.9 Plt Count 147 L MPV 9.9 Immature Gran % (Auto) 0.600 Neut % (Auto) 77.3 H Lymph % (Auto) 16.8 L Worth % (Auto) 5.1 Eos % (Auto) 0.0 Baso % (Auto) 0.2 Absolute Neuts (auto) 3.9 Absolute Lymphs (auto) 0.85 Nucleated RBC % 0 PT 12.7 INR 1.0 APTT 35.3 Sodium 130 L Potassium 3.1 L Chloride 90 L Carbon Dioxide 33.0 H Anion Gap 7 BUN 14 Creatinine 1.07 Estim Creat Clear Calc 72.96 Est GFR (MDRD) Af Amer 90 Est GFR (MDRD) Non-Af 74 BUN/Creatinine Ratio 13.1 Glucose 102 Lactic Acid Calcium 8.5 Total Bilirubin 0.90 AST 70 H ALT 37 Alkaline Phosphatase 50 Troponin I High Sens 24 Total Protein 7.4 Albumin 2.8 L Globulin 4.6 H Albumin/Globulin Ratio 0.6 L Urine Color Urine Clarity Urine pH Ur Specific Eddy Urine Protein Urine Glucose (UA) Urine Ketones Urine Occult Blood Urine Nitrite Urine Bilirubin Urine Urobilinogen Ur Leukocyte Esterase Urine RBC Urine WBC Ur Squamous Epith Cells Urine Bacteria Urine Mucus 07/06/21 07/06/21 08:35 09:55 WBC RBC Hgb Hct MCV MCH MCHC RDW Std Deviation RDW Coeff of Sue Plt Count MPV Immature Gran % (Auto) Neut % (Auto) Lymph % (Auto) Worth % (Auto) Eos % (Auto) Baso % (Auto) Absolute Neuts (auto) Absolute Lymphs (auto) Nucleated RBC % PT INR APTT Sodium Potassium Chloride Carbon Dioxide Anion Gap BUN Creatinine Estim Creat Clear Calc Est GFR (MDRD) Af Amer Est GFR (MDRD) Non-Af BUN/Creatinine Ratio Glucose Lactic Acid 1.8 Calcium Total Bilirubin AST ALT Alkaline Phosphatase Troponin I High Sens Total Protein Albumin Globulin Albumin/Globulin Ratio Urine Color Yellow Urine Clarity Clear Urine pH 7.0 Ur Specific Eddy 1.005 Urine Protein 30 H Urine Glucose (UA) Normal Urine Ketones 5 H Urine Occult Blood 25 H Urine Nitrite Negative Urine Bilirubin Negative Urine Urobilinogen 4 H Ur Leukocyte Esterase Negative Urine RBC 0 SEEN Urine WBC 0 SEEN Ur Squamous Epith Cells 0-5 SEEN Urine Bacteria 0 SEEN Urine Mucus 0 SEEN Radiography Diagnostic Testing: Radiology Impression Chest CTA 07/06/21 08:24 IMPRESSION: 1. No CT evidence of pulmonary embolism. 2. Bilateral pneumonia. Commonly reported imaging features of Covid 19 pneumonia are present. Other processes such as influenza pneumonia and organizing pneumonia as can be seen from drug toxicity or connective tissue disease can cause a similar imaging findings. Electronically Signed: Ben Irving MD at 10:10 EDT Tel , Service support , EKG Initial EKG: Attestation: I personally reviewed and interpreted this EKG as follows: Comments: Normal sinus rhythm at a rate of 89 bpm Discharge Plan Dx/Rx/DC Orders Clinical Impression: COVID-19, Acute hypoxemic respiratory failure, Acute hypokalemia, Thrombocytopenia associated with COVID-19 Disposition Disposition: [facility]
[2021-07-06] MEDS: Ondansetron 4 MG/2 ML Vial IV (08:41)
[2021-07-06 08:49] LABS: Absolute Lymphocyte Count 0.85 X10^3/uL (0.83-4.51); Absolute Neutrophil Count 3.9 X10^3/uL (2.0-7.7); Basophil# 0.01 X10^3/uL; Basophil% 0.2 % (0-1); Hematocrit 46.3 % (40-54); Hemoglobin 16.2 g/dL (13.0-16.5); Lymphocyte # 0.85 X10^3/ul (0.83-4.51); Lymphocyte % 16.8 % (19-41); Mean Corpuscular Hgb 30.5 pg (27.0-32.0); Mean Platelet Vol. 9.9 fl (6.2-12.0); Monocyte# 0.26 X10^3/uL; Monocyte% 5.1 % (0-10); NRBC Flagged by Analyzer 0 % (0-5); Neutrophil % 77.3 % (47-70); POSITIVE MORPHOLOGY YES; Platelet Count 147 K/mm3 (150-450); RBC Distribution Width CV 11.9 % (11.6-14.6); RBC Distribution Width SD 38.2 fl (35.1-43.9); Red Blood Count 5.32 M/mm3 (4.6-6.2); White Blood Count 5.1 K/mm3 (4.4-11.0)
[2021-07-06 08:51] LABS: Differential Indicated SCAN CRITERIA MET
[2021-07-06 09:00] LABS: Prothrombin Time (Protime)PT. 12.7 SECONDS (11.7-14.9)
[2021-07-06 09:02] LABS: Partial Thromboplast Time 35.3 Seconds (24.1-36.2)
[2021-07-06 09:09] LABS: ALB/GLOB Ratio 0.6 RATIO (0.9-2.4); AST(SGOT) 70 U/L (15-37); Alanine Aminotransfer ALT/SGPT 37 U/L (16-61); Albumin, Serum 2.8 g/dL (3.2-5.0); Alkaline Phosphatase 50 U/L (45-117); Anion Gap 7 (5-15); BUN 14 mg/dL (7-18); BUN/Creat Ratio 13.1 RATIO (10-20); Calcium,Total 8.5 mg/dL (8.5-10.1); Chloride 90 mmol/L (98-107); Creatinine, Serum 1.07 mg/dL (0.70-1.30); EST Glomerular Filtration Rate 74 mL/min (>60); Est Glom Filt Rate - Afr Amer 90 mL/min (>60); Estimated Creatinine Clearance 72.96 ml/min; Globulin 4.6 g/dL (2.2-4.2); Glucose 102 mg/dL (74-106); Potassium 3.1 mmol/L (3.5-5.1); Protein, Total 7.4 g/dL (6.4-8.2); Sodium Level 130 mmol/L (136-145); Troponin-I HS 24 pg/mL (3.0-78.0)
[2021-07-06 09:12] LABS: Lactic Acid 1.8 mmol/L (0.4-1.9)
[2021-07-06] MEDS: Potassium Chloride Oral Tablet 20 MEQ 40 MEQ PO (09:13)
[2021-07-06] MEDS: Acetaminophen 500 MG Tablet 1000 MG PO (09:13)
[2021-07-06] MEDS: dexAMETHasone 4 MG Tablet 6 MG PO (09:58)
[2021-07-06 10:05] LABS: Bacteria 0 SEEN /hpf (None Seen); Mucous, Urine 0 SEEN /hpf (<or=2+); Red Blood Cells-Urine 0 SEEN /hpf (0-5); White Blood Cells 0 SEEN /hpf (0-5)
[2021-07-06 10:08] LABS: Color, Urine Yellow (Yellow); Glucose, Dipstick Normal (Normal); Ketone-Dipstick 5 mg/dl (Negative); Leukocyte Esterase-Dipstick Negative /ul (Negative); Nitrite-Dipstick Negative (Negative); Occult Blood-Urine 25 /ul (Negative); Protein-Dipstick 30 mg/dl (Negative); Specific Gravity, Urine 1.005 (1.002-1.030); Urine Bilirubin Dipstick Negative (Negative); Urine Clarity Clear (Clear); Urine Urobilinogen 4 mg/dl (Normal)
[2021-07-06 10:17] LABS: Squamous Epithelial Cells - UA 0-5 SEEN /hpf (0-5)
--- NOTE | 2021-07-06 11:30 | HP.PCM.HOS_ITS ---
[facility] - General General Date of Admission: 07/06/21 Date of Service: 07/06/21 Chief Complaint: shortness of breath. HPI Narrative ELBA KIRK, is a 65 M who presents with 10-day history of feeling sick. Over the past 3 days, he has been more short of breath. He is also been having vomiting and diarrhea, myalgias, fever, headache and congestion during this time. Patient was not vaccinated for COVID-19. He presented to the emergency room where he was found to have diffuse dense infiltrates on his CAT scan and was COVID-19 positive. Patient received dexamethasone as well as potassium chloride in the emergency room. [facility] Medical History Back pain Essential hypertension Hair loss Leukopenia Osteoarthritis Palpitations Home Medications amlodipine 10 mg PO DAILY 06/19/17 [History Last Taken 12/02/20] enalapril-hydrochlorothiazide 1 tab PO DAILY 06/19/17 [History Last Taken Unknown] ibuprofen 600 mg tablet 600 mg PO TID PRN 09/16/20 [History Last Taken Unknown] magnesium oxide 500 mg tablet 500 mg PO DAILY 09/16/20 [History Last Taken Unknown] zinc 50 mg tablet 50 mg PO DAILY 09/16/20 [History Last Taken Unknown] cholecalciferol (vitamin D3) 125 mcg (5,000 unit) capsule 125 mcg PO DAILY 09/18/20 [History Last Taken Unknown] Allergy/AdvReac Type Severity Reaction Status Date / Time No Known Allergies Allergy Verified 07/06/21 08:26 Family History Mother Hypertension Diabetes Brother Hypertension Diabetes Surgical History History of colonoscopy (~2017) History of excision of epidermal inclusion cyst History of surgery on left wrist Social History Smoking Status: Never smoker alcohol intake: current details: Rarely substance use type: does not use caffeine: Yes (2 cups) Type: coffee ROS ROS Narrative All review of systems were negative except as mentioned above in the history of present illness and the other review of systems. Vital Signs Vital Signs Vital Signs: 07/06/21 08:11 07/06/21 08:27 07/06/21 09:11 Temperature 37.3 C 38.8 C H Temperature Source Temporal Axillary Pulse Rate 95 89 Respiratory Rate 20 H 35 H Respiratory Effort Short of Breath Labored Respiratory Pattern Normal Blood Pressure 101/69 132/73 H Blood Pressure Mean 79 92 Pulse Ox 85 89 94 Oxygen Delivery Method Room Air Nasal Cannula Nasal Cannula Oxygen Flow Rate (L/min) 6 6 07/06/21 10:04 07/06/21 10:52 07/06/21 11:03 Temperature 37.3 C H 37.3 C H 37.3 C H Temperature Source Axillary Axillary Axillary Pulse Rate 89 83 83 Respiratory Rate 35 H 30 H 30 H Respiratory Effort Respiratory Pattern Blood Pressure 106/62 121/80 H 121/80 H Blood Pressure Mean 76 93 93 Pulse Ox 94 96 96 Oxygen Delivery Method Nasal Cannula Room Air Nasal Cannula Oxygen Flow Rate (L/min) 6 6 Weight Weight: 80 kg Body Mass Index (BMI) 25.2 Physical Exam Const alert General Appearance: cooperative HEENT normocephalic Eyes Eyes Narrative: No icterus Neck no lymphadenopathy Resp normal respiratory effort and no retractions Resp Narrative: Coarse breath sounds bilaterally Cardio regular rate, regular rhythm, S1 normal heart sound and S2 normal heart sound GI normal to inspection, nondistended, normoactive bowel sounds, soft to palpation, non-tender and non-distended Extremity normal to inspection Skin no rashes or lesions noted Neuro Sensorium / Orientation: awake and alert Psych affect normal Results Lab / Micro Data Attestation: I reviewed the patient's lab results. Result Diagrams: 07/06/21 08:35 07/06/21 08:35 Labs: Laboratory Results - last 24 hr 07/06/21 08:35: WBC 5.1, RBC 5.32, Hgb 16.2, Hct 46.3, MCV 87.0, MCH 30.5, MCHC 35.0, RDW Std Deviation 38.2, RDW Coeff of Sue 11.9, Plt Count 147 L, MPV 9.9, Immature Gran % (Auto) 0.600, Neut % (Auto) 77.3 H, Lymph % (Auto) 16.8 L, [place] % (Auto) 5.1, Eos % (Auto) 0.0, Baso % (Auto) 0.2, Absolute Neuts (auto) 3.9, Absolute Lymphs (auto) 0.85, Nucleated RBC % 0 07/06/21 08:35: PT 12.7, INR 1.0, APTT 35.3 07/06/21 08:35: Sodium 130 L, Potassium 3.1 L, Chloride 90 L, Carbon Dioxide 33.0 H, Anion Gap 7, BUN 14, Creatinine 1.07, Estim Creat Clear Calc 72.96, Est GFR (MDRD) Af Amer 90, Est GFR (MDRD) Non-Af 74, BUN/Creatinine Ratio 13.1, G lucose 102, Calcium 8.5, Total Bilirubin 0.90, AST 70 H, ALT 37, Alkaline Mikaela sphatase 50, Troponin I High Sens 24, Total Protein 7.4, Albumin 2.8 L, Globulin 4.6 H, Albumin/Globulin Ratio 0.6 L 07/06/21 08:35: Lactic Acid 1.8 07/06/21 09:55: Urine Color Yellow, Urine Clarity Clear, Urine pH 7.0, Ur Specific [place] 1.005, Urine Protein 30 H, Urine Glucose (UA) Normal, Urine Ketones 5 H, Urine Occult Blood 25 H, Urine Nitrite Negative, Urine Bilirubin Negative, Urine Urobilinogen 4 H, Ur Leukocyte Esterase Negative, Urine RBC 0 SEEN, Urine WBC 0 SEEN, Ur Squamous Epith Cells 0-5 SEEN, Urine Bacteria 0 SEEN, Urine Mucus 0 SEEN Micro: Microbiology 07/06/21 08:23 Nasal Secretion SARS-CoV-2 Antigen (Rapid) - Final SARS-CoV-2 (COVID 19) Radiology Impression Chest CTA 07/06/21 08:24 IMPRESSION: 1. No CT evidence of pulmonary embolism. 2. Bilateral pneumonia. Commonly reported imaging features of Covid 19 pneumonia are present. Other processes such as influenza pneumonia and organizing pneumonia as can be seen from drug toxicity or connective tissue disease can cause a similar imaging findings. Electronically Signed: Ben Irving MD at 10:10 EDT Tel , Service support , Assessment & Plan Assessment/Plan (1) COVID-19: (2) Acute hypoxemic respiratory failure: (3) Acute hypokalemia: PLAN: 1. Acute COVID-19 Date of onset was 10 days ago Discussed with the patient since he did not get the vaccine if he wants to get medical treatment which I strongly encouraged he get. He reluctantly agreed to getting medical treatment. I explained that the medical treatment would include dexamethasone and if he require intubation sedation as well as VTE prophylaxis. So we will continue with dexamethasone and supportive treatments at this time. Will initiate remdesivir as patient is nonspecific in regards to the time of onset virus 10 days ago her last. Patient's is at bedside and I recommend that she quarantine. She was made aware that there are no visitors for patients that have COVID-19. December. Acute hypoxic respiratory failure Secondary to dense consolidation and groundglass opacity throughout both lungs. Patient is currently hemodynamically stable on 6 L, though I am concerned that h e could decompensate quickly given the severity of his illness particular if the inflammation is to continue to progress Will recommend prone positioning as well as high flow nasal cannula which he is doing okay at 6L. Patient is open to higher levels of oxygen if become necessary 3. Hypokalemia Replaced in the emergency room Continue to monitor and check magnesium 4. Hypertension Continue with home medications 5. VTE prophylaxis: High risk. Enoxaparin 6. CODE STATUS: Addressed with the patient. Patient reluctantly agrees to being full code. I recommended full CODE STATUS given that he is a relatively healthy prior to contracted COVID-19. Charges/Coding Visit Charges Inpatient E&M: 41099 Init Hosp L3
--- NOTE | 2021-07-06 12:11 | PCS.PANDOC ---
PANDEMIC DOCUMENTATION INITIATED: Date: 06/16/2021 Time: 190
[2021-07-06] MEDS: 0.9% Saline Lock 10 ML Syringe IV ×2 (14:05→18:13)
[2021-07-06] MEDS: Furosemide 40 MG/4 ML Vial IV (18:13)
--- NOTE | 2021-07-06 19:58 | CPS ---
decreased O2 to 12 lpm nasal Cannula
[2021-07-07] VITALS (16 sets, daily range): BP systolic 99–115; BP diastolic 62–76; PULSE 71–88; RESP 20–26; TEMP 35.6–36.6; O2SAT 88–97
--- NOTE | 2021-07-07 02:40 | CPS ---
decreased O2 to 10 lpm NC
[2021-07-07 06:30] LABS: Absolute Neutrophil Count 4.3 X10^3/uL (2.0-7.7); Basophil# 0.02 X10^3/uL; Basophil% 0.3 % (0-1); Hematocrit 49.4 % (40-54); Lymphocyte % 15.7 % (19-41); Mean Corp Hgb Conc 34.4 g/dL (32-36); Mean Corpuscular Hgb 30.4 pg (27.0-32.0); Mean Corpuscular Volume 88.2 fL (80-94); Mean Platelet Vol. 10.5 fl (6.2-12.0); Monocyte# 0.48 X10^3/uL; Monocyte% 8.4 % (0-10); NRBC Flagged by Analyzer 0 % (0-5); Neutrophil # 4.28 X10^3/uL (2.7-7.7); Neutrophil % 74.9 % (47-70); POSITIVE MORPHOLOGY YES; Platelet Count 173 K/mm3 (150-450); RBC Distribution Width CV 12.1 % (11.6-14.6); RBC Distribution Width SD 39.3 fl (35.1-43.9); White Blood Count 5.7 K/mm3 (4.4-11.0)
[2021-07-07 06:43] LABS: ALB/GLOB Ratio 0.6 RATIO (0.9-2.4); AST(SGOT) 61 U/L (15-37); Alanine Aminotransfer ALT/SGPT 41 U/L (16-61); Albumin, Serum 2.5 g/dL (3.2-5.0); Alkaline Phosphatase 50 U/L (45-117); Anion Gap 7 (5-15); BUN 18 mg/dL (7-18); BUN/Creat Ratio 23.6 RATIO (10-20); Calcium,Total 8.5 mg/dL (8.5-10.1); Chloride 96 mmol/L (98-107); Creatinine, Serum 0.76 mg/dL (0.70-1.30); EST Glomerular Filtration Rate 110 mL/min (>60); Est Glom Filt Rate - Afr Amer 133 mL/min (>60); Estimated Creatinine Clearance 102.72 ml/min; Globulin 4.5 g/dL (2.2-4.2); Glucose 116 mg/dL (74-106); Magnesium 2.5 mg/dL (1.6-2.6); Potassium 3.4 mmol/L (3.5-5.1); Sodium Level 134 mmol/L (136-145)
[2021-07-07 06:48] LABS: Scan Indicated on CBC? Y/N YES- FLAGS NOTED
[2021-07-07 07:13] LABS: Differential Comment SCANNED
[2021-07-07 07:14] LABS: Atypical Lymphocyte RARE %
[2021-07-07] MEDS: dexAMETHasone 4 MG Tablet 6 MG PO (08:05)
[2021-07-07] MEDS: amLODIPine 10 MG Tablet PO (08:06)
[2021-07-07] MEDS: Cholecalciferol (VIT D3) 25 MCG TABLET (1,000 UNITS) 125 MCG PO (08:06)
[2021-07-07] MEDS: Magnesium Chloride 64 MG Delay Rel.Tablet 128 MG PO (08:06)
[2021-07-07] MEDS: Enoxaparin 40 MG/0.4 ML Syringe SC (08:07)
[2021-07-07] MEDS: 0.9% Saline Lock 10 ML Syringe IV (11:57)
--- NOTE | 2021-07-07 13:23 | PN.HOSP_ITS ---
Subjective Subjective Patient states that he is feeling a little bit better today. He states that he is less short of breath. Denies any current issues. We discussed the need for his oxygen to come down less than 6 L with exertion for him to be able to be discharged and he seems to understand. Objective Data Objective Data Vital Signs: Vital Signs Temp Pulse Resp BP Pulse Ox 96.1 F L 79 20 H 99/66 93 07/07/21 11:58 07/07/21 11:58 07/07/21 11:58 07/07/21 11:58 07/07/21 11:58 Oxygen Flow Rate (L/min) [ 3 AMBULATING with Oxygen #1] Oxygen Flow Rate (L/min) 9 Oxygen Delivery Method Nasal Cannula Weight: 80 kg Body Mass Index (BMI) 25.2 Intake & Output: Intake and Output for Last 24 Hours 07/05/21 07/06/21 07/07/21 23:59 23:59 23:59 Intake Total 759.5 / 759.5 Output Total 800 / 800 300 / 300 Balance -40.5 / -40.5 -300 / -300 Lab / Micro Data Result Diagrams: 07/07/21 05:42 07/07/21 05:42 Labs: Laboratory Results - last 24 hr 07/07/21 05:42: WBC 5.7, RBC 5.60, Hgb 17.0 H, Hct 49.4, MCV 88.2, MCH 30.4, MCHC 34.4, RDW Std Deviation 39.3, RDW Coeff of Sue 12.1, Plt Count 173, MPV 10.5, Immature Gran % (Auto) 0.700, Neut % (Auto) 74.9 H, Lymph % (Auto) 15.7 L, [place] % (Auto) 8.4, Eos % (Auto) 0.0, Baso % (Auto) 0.3, Absolute Neuts (auto) 4.3, Absolute Lymphs (auto) 0.90, Nucleated RBC % 0, Differential Comment SCANNED, Atypical Lymphocytes RARE 07/07/21 05:42: Sodium 134 L, Potassium 3.4 L, Chloride 96 L, Carbon Dioxide 31.0, Anion Gap 7, BUN 18, Creatinine 0.76, Estim Creat Clear Calc 102.72, Est GFR (MDRD) Af Amer 133, Est GFR (MDRD) Non-Af 110, BUN/Creatinine Ratio 23.6 H, Glucose 116 H, Calcium 8.5, Magnesium 2.5, Total Bilirubin 0.60, AST 61 H, ALT 41, Alkaline Phosphatase 50, Total Protein 7.0, Albumin 2.5 L, Globulin 4.5 H, Albumin/Globulin Ratio 0.6 L Micro: Microbiology 07/06/21 08:23 Nasal Secretion SARS-CoV-2 Antigen (Rapid) - Final SARS-CoV-2 (COVID 19) Physical Exam Const alert, oriented x3, no apparent distress and average body habitus Constitutional Narrative: Upper middle-aged -Indian male sitting in the chair at the bedside watching television, appears comfortable, nontoxic, sl ightly tachypneic Exam Limitations: no limitations HEENT head/scalp atraumatic and moist oral mucous membranes HEENT Narrative: No thrush, Mallampati 2 Head and Scalp: normocephalic Resp no retractions and no use of accessory muscles Resp Narrative: Few scattered crackles and diminished, slight tachypnea Auscultation: crackles; Negative for rales, rhonchi or wheezes Cardio regular rate, regular rhythm, S1 normal heart sound and S2 normal heart sound GI normal to inspection, nondistended, normoactive bowel sounds, soft to palpation, non-tender and non-distended Extremity no clubbing, cyanosis or edema Peripheral Pulses: Yes pulses 2+ throughout Neuro oriented x3 Sensorium / Orientation: awake and alert Assessment & Plan Assessment/Plan (1) Acute hypoxemic respiratory failure: (2) COVID-19: (3) Acute hypokalemia: (4) Hyponatremia: PLAN: Acute hypoxic respiratory failure secondary to COVID-19 pneumonia -Nonvaccinated -Patient has been ill for 11 days now -Continue remdesivir day 2 of 5 -Continue Decadron day 2 of 10 -Patient is currently on 12 L heated high flow nasal cannula -Titrate oxygen to maintain sats greater than 92% we will -Continue supportive care -Discussed with patient that we will need to be on 6 L nasal cannula or less with ambulation prior to going home--> patient voiced understanding Hypokalemia -60 mEq p.o. K-Dur today -Repeat in a.m. -Check a.m. mag level Acute hyponatremia -Mild -Suspect related to Covid infection -Continue to monitor -Patient is on HCTZ at baseline Hypertension -Continue amlodipine 10 mg daily -Hold home enalapril/HCTZ DVT prophylaxis -Continue enoxaparin CODE STATUS -Full code Charges/Coding Visit Charges Inpatient E&M: 55135 Subs Hosp L2
[2021-07-07] MEDS: Potassium Chloride Oral Tablet 20 MEQ 60 MEQ PO (14:29)
[2021-07-08] VITALS (7 sets, daily range): BP systolic 93–123; BP diastolic 60–69; PULSE 70–78; RESP 18–20; TEMP 36.2–36.5; O2SAT 94–99
[2021-07-08 07:28] LABS: Absolute Lymphocyte Count 1.08 X10^3/uL (0.83-4.51); Absolute Neutrophil Count 4.7 X10^3/uL (2.0-7.7); Basophil# 0.04 X10^3/uL; Basophil% 0.6 % (0-1); Hematocrit 47.9 % (40-54); Hemoglobin 15.9 g/dL (13.0-16.5); Lymphocyte # 1.08 X10^3/ul (0.83-4.51); Lymphocyte % 16.5 % (19-41); Mean Corp Hgb Conc 33.2 g/dL (32-36); Mean Corpuscular Volume 90.4 fL (80-94); Mean Platelet Vol. 9.9 fl (6.2-12.0); Monocyte# 0.62 X10^3/uL; Monocyte% 9.5 % (0-10); NRBC Flagged by Analyzer 0 % (0-5); Neutrophil # 4.72 X10^3/uL (2.7-7.7); POSITIVE MORPHOLOGY YES; Platelet Count 220 K/mm3 (150-450); RBC Distribution Width CV 12.4 % (11.6-14.6); White Blood Count 6.6 K/mm3 (4.4-11.0)
[2021-07-08 07:31] LABS: Differential Indicated SCAN CRITERIA MET
[2021-07-08 08:02] LABS: Differential Comment D
[2021-07-08 08:09] LABS: ALB/GLOB Ratio 0.6 RATIO (0.9-2.4); AST(SGOT) 66 U/L (15-37); Alanine Aminotransfer ALT/SGPT 57 U/L (16-61); Albumin, Serum 2.8 g/dL (3.2-5.0); Alkaline Phosphatase 52 U/L (45-117); Anion Gap 4 (5-15); BUN 20 mg/dL (7-18); BUN/Creat Ratio 30.6 RATIO (10-20); Calcium,Total 8.9 mg/dL (8.5-10.1); Chloride 98 mmol/L (98-107); Creatinine, Serum 0.65 mg/dL (0.70-1.30); EST Glomerular Filtration Rate 131 mL/min (>60); Est Glom Filt Rate - Afr Amer 158 mL/min (>60); Estimated Creatinine Clearance 120.11 ml/min; Globulin 4.4 g/dL (2.2-4.2); Glucose 114 mg/dL (74-106); Potassium 3.9 mmol/L (3.5-5.1); Protein, Total 7.2 g/dL (6.4-8.2); Sodium Level 132 mmol/L (136-145)
[2021-07-08] MEDS: Cholecalciferol (VIT D3) 25 MCG TABLET (1,000 UNITS) 125 MCG PO (08:59)
[2021-07-08] MEDS: amLODIPine 10 MG Tablet PO (08:59)
[2021-07-08] MEDS: 0.9% Saline Lock 10 ML Syringe IV (08:59)
[2021-07-08] MEDS: Magnesium Chloride 64 MG Delay Rel.Tablet 128 MG PO (09:00)
[2021-07-08] MEDS: Enoxaparin 40 MG/0.4 ML Syringe SC (09:00)
[2021-07-08] MEDS: dexAMETHasone 4 MG Tablet 6 MG PO (09:08)
--- NOTE | 2021-07-08 12:23 | PCM.PN.HOSP ---
Subjective Subjective Patient says he is feeling well. Has no subjective complaints. States he is not short of breath with ambulation around the room. Still requiring significant supplemental oxygen and has been weaned from 9 L this morning to 8 L nasal cannula with an SPO2 of 94 to 96%. We did discuss that once he is able to ambulate on 6 L or less we can discuss discharge and have him follow-up with pulmonary as an outpatient for reevaluation of continued need of oxygen. Objective Data Objective Data Vital Signs: Vital Signs Temp Pulse Resp BP Pulse Ox 97.5 F L 72 18 102/67 95 07/08/21 08:56 07/08/21 08:56 07/08/21 08:56 07/08/21 08:56 07/08/21 08:56 Oxygen Flow Rate (L/min) [ 3 AMBULATING with Oxygen #1] Oxygen Flow Rate (L/min) 8 Oxygen Delivery Method Nasal Cannula Weight: 80 kg Body Mass Index (BMI) 25.2 Intake & Output: Intake and Output for Last 24 Hours 07/06/21 07/07/21 07/08/21 23:59 23:59 23:59 Intake Total 759.5 / 759.5 1158.5 / 1158.5 250 / 250 Output Total 800 / 800 700 / 700 275 / 275 Balance -40.5 / -40.5 458.5 / 458.5 -25 / -25 Lab / Micro Data Result Diagrams: 07/08/21 06:44 07/08/21 06:44 Labs: Laboratory Results - last 24 hr 07/08/21 06:44: WBC 6.6, RBC 5.30, Hgb 15.9, Hct 47.9, MCV 90.4, MCH 30.0, MCHC 33.2, RDW Std Deviation 41.0, RDW Coeff of Sue 12.4, Plt Count 220, MPV 9.9, Immature Gran % (Auto) 1.400 H, Neut % (Auto) 72.0 H, Lymph % (Auto) 16.5 L, [place] % (Auto) 9.5, Eos % (Auto) 0.0, Baso % (Auto) 0.6, Absolute Neuts (auto) 4.7, Absolute Lymphs (auto) 1.08, Nucleated RBC % 0, Differential Comment D 07/08/21 06:44: Sodium 132 L, Potassium 3.9, Chloride 98, Carbon Dioxide 30.0, Anion Gap 4 L, BUN 20 H, Creatinine 0.65 L, Estim Creat Clear Calc 120.11, Est GFR (MDRD) Af Amer 158, Est GFR (MDRD) Non-Af 131, BUN/Creatinine Ratio 30.6 H, Glucose 114 H, Calcium 8.9, Total Bilirubin 0.60, AST 66 H, ALT 57, Alkaline Phosphatase 52, Total Protein 7.2, Albumin 2.8 L, Globulin 4.4 H, Albumin/Globulin Ratio 0.6 L Micro: Microbiology 07/06/21 08:50 Blood Culture (Wb) - Right Hand Blood Culture - Preliminary No growth in 48 hours. 07/06/21 08:35 Blood Culture (Wb) - Anticubital Left Blood Culture - Preliminary No growth in 48 hours. 07/06/21 08:23 Nasal Secretion SARS-CoV-2 Antigen (Rapid) - Final SARS-CoV-2 (COVID 19) Physical Exam Const alert, oriented x3, no apparent distress and average body habitus Constitutional Narrative: Upper middle-aged -[place] male sitting in the chair at the bedside watching television, appears comfortable, nontoxic, appears if he is feeling quite well General Appearance: cooperative Exam Limitations: no limitations HEENT normocephalic, head/scalp atraumatic and moist oral mucous membranes Head and Scalp: normocephalic Resp normal respiratory effort, no retractions, no use of accessory muscles and clear to auscultation bilaterally Resp Narrative: Diminished but clear Auscultation: Negative for crackles, rales, rhonchi or wheezes Cardio regular rate, regular rhythm, S1 normal heart sound, S2 normal heart sound, no murmurs, no rub, no gallops, no clicks and no JVD GI normal to inspection, nondistended, normoactive bowel sounds, soft to palpation, non-tender and non-distended Extremity no clubbing, cyanosis or edema Peripheral Pulses: Yes pulses 2+ throughout Neuro oriented x3 and moves all extremities Sensorium / Orientation: awake and alert Assessment & Plan Assessment/Plan (1) Acute hypoxemic respiratory failure: (2) COVID-19: (3) Acute hypokalemia: (4) Hyponatremia: PLAN: Acute hypoxic respiratory failure secondary to COVID-19 pneumonia -Nonvaccinated -Patient has been ill for 11 days now -Continue remdesivir day 3 of 5 -Continue Decadron day 3 of 10 -Patient is currently on 8 L heated high flow nasal cannula down from 12 L yesterday--> current SPO2 is 94 to 95% -Titrate oxygen to maintain sats greater than 92% -Continue supportive care -Discussed again with patient that he will need to be on 6 L nasal cannula or less with ambulation prior to going home--> patient voiced understanding Hypokalemia -resolved -Continue to monitor Acute hyponatremia -Remains mild -Suspect related to Covid infection -Continue to monitor -Patient is on HCTZ at baseline but is not currently receiving -Patient is on no medications at wastes sodium -Appears to fluctuate between 130 and 135 Hypertension -Continue amlodipine 10 mg daily -Blood pressures are stable -Hold home enalapril/HCTZ DVT prophylaxis -Continue enoxaparin CODE STATUS -Full code Charges/Coding Visit Charges Inpatient E&M: 41524 Subs Hosp L2
--- NOTE | 2021-07-08 12:30 | CASEMGMT ---
SVEN BERMUDEZ Assessment: Face to Face with pt for initial transition planning/care coordination assessment. RN AIDAN introduced self and role at [facility], pt voices understanding and consents to assessment. Pt is A/O x4 and answers all questions appropriately at this time. Pt sitting up in chair with O2 on ready to eat lunch in no distress. Care providers, pharmacy, and demographics verified/updated. Admitting Dx: COVID 19 PCP:Jazmyn Specialists: Pt denies [facility]erred [facility] Insurance: R ANISHA Prescription Benefit: yes LW/HPOA: Pt states he has a LW and DPOA. He states his is his DPOA. Pt is aware that it is not on file at [facility] and he may bring in to be scanned into the chart. LNOK: [place], Living Arrangements: Pt lives with in a two story house with 1 step to enter. Pt reports being I in ADL's and denies concerns at home. Transportation: Pt drives self and denies concerns with transportation. DME/HHC/SNF: Pt states he has a walker at home but does not use. He denies hx of HHC or SNF stays. Pt works maritime engineer. He denies any alcohol, cigarette, illegal or street drug use. Pt reports being first tested at [facility] for COVID. Pt has not been tested. He states they can quarantine from each other as far as using separate bathrooms and bedrooms. Pt does have family who can get him supplies and groceries. Pt provided a list of local in network DME companies should he need O2 upon dc. Pt chose [employer]. Pt states no concerns with going home at time of dc. Pt states no further concerns/needs. CM to follow. Advised pt to ask CM if any further question/concerns/needs arise, voices understanding. Pt Goal: Home Plan: Home
[2021-07-09] VITALS (7 sets, daily range): BP systolic 97–121; BP diastolic 50–79; PULSE 74–83; RESP 18–20; TEMP 36.3–36.7; O2SAT 92–96
[2021-07-09 07:18] LABS: Absolute Lymphocyte Count 1.03 X10^3/uL (0.83-4.51); Absolute Neutrophil Count 8.1 X10^3/uL (2.0-7.7); Basophil# 0.02 X10^3/uL; Basophil% 0.2 % (0-1); Hematocrit 46.1 % (40-54); Hemoglobin 15.5 g/dL (13.0-16.5); Lymphocyte # 1.03 X10^3/ul (0.83-4.51); Lymphocyte % 10.2 % (19-41); Mean Corp Hgb Conc 33.6 g/dL (32-36); Mean Corpuscular Volume 89.3 fL (80-94); Mean Platelet Vol. 10.2 fl (6.2-12.0); Monocyte# 0.59 X10^3/uL; Monocyte% 5.9 % (0-10); NRBC Flagged by Analyzer 0 % (0-5); Neutrophil # 8.14 X10^3/uL (2.7-7.7); POSITIVE MORPHOLOGY YES; Platelet Count 260 K/mm3 (150-450); RBC Distribution Width CV 12.3 % (11.6-14.6); RBC Distribution Width SD 40.9 fl (35.1-43.9); Red Blood Count 5.16 M/mm3 (4.6-6.2); White Blood Count 10.1 K/mm3 (4.4-11.0)
[2021-07-09 07:22] LABS: Differential Indicated SCAN CRITERIA MET
[2021-07-09 07:50] LABS: ALB/GLOB Ratio 0.7 RATIO (0.9-2.4); AST(SGOT) 65 U/L (15-37); Alanine Aminotransfer ALT/SGPT 75 U/L (16-61); Albumin, Serum 2.8 g/dL (3.2-5.0); Alkaline Phosphatase 56 U/L (45-117); Anion Gap 4 (5-15); BUN 20 mg/dL (7-18); BUN/Creat Ratio 25.4 RATIO (10-20); Calcium,Total 8.9 mg/dL (8.5-10.1); Chloride 99 mmol/L (98-107); Creatinine, Serum 0.79 mg/dL (0.70-1.30); EST Glomerular Filtration Rate 106 mL/min (>60); Est Glom Filt Rate - Afr Amer 128 mL/min (>60); Estimated Creatinine Clearance 98.82 ml/min; Globulin 4.3 g/dL (2.2-4.2); Glucose 105 mg/dL (74-106); Potassium 3.9 mmol/L (3.5-5.1); Protein, Total 7.1 g/dL (6.4-8.2); Sodium Level 134 mmol/L (136-145)
[2021-07-09 07:57] LABS: Reactive Lymphocyte RARE
[2021-07-09] MEDS: Cholecalciferol (VIT D3) 25 MCG TABLET (1,000 UNITS) 125 MCG PO (09:50)
[2021-07-09] MEDS: dexAMETHasone 4 MG Tablet 6 MG PO (09:50)
[2021-07-09] MEDS: Magnesium Chloride 64 MG Delay Rel.Tablet 128 MG PO (09:50)
[2021-07-09] MEDS: amLODIPine 10 MG Tablet PO (09:50)
[2021-07-09] MEDS: 0.9% Saline Lock 10 ML Syringe IV (09:51)
[2021-07-09] MEDS: Enoxaparin 40 MG/0.4 ML Syringe SC (09:51)
--- NOTE | 2021-07-09 13:58 | PN.HOSP_ITS ---
Subjective Subjective Patient is getting frustrated that he is still remaining in the hospital. Unfortunately, he is still on 7 L nasal cannula just at rest. He is frustrated as he needs to get back to work he states. I did inform him that he would need to be in quarantine until 20 days after symptom onset. He seemed surprised by this information. Objective Data Objective Data Vital Signs: Vital Signs Temp Pulse Resp BP Pulse Ox 98.0 F 83 18 111/67 92 07/09/21 09:48 07/09/21 09:48 07/09/21 09:48 07/09/21 09:48 07/09/21 09:48 Oxygen Flow Rate (L/min) [ 3 AMBULATING with Oxygen #1] Oxygen Flow Rate (L/min) 6 Oxygen Delivery Method Nasal Cannula Weight: 80 kg Body Mass Index (BMI) 25.2 Intake & Output: Intake and Output for Last 24 Hours 07/07/21 07/08/21 07/09/21 23:59 23:59 23:59 Intake Total 1158.5 / 1158.5 1300 / 1300 1850 / 1850 Output Total 700 / 700 775 / 775 1700 / 1700 Balance 458.5 / 458.5 525 / 525 150 / 150 Lab / Micro Data Result Diagrams: 07/09/21 06:35 07/09/21 06:50 Labs: Laboratory Results - last 24 hr 07/09/21 06:35: WBC 10.1, RBC 5.16, Hgb 15.5, Hct 46.1, MCV 89.3, MCH 30.0, MCHC 33.6, RDW Std Deviation 40.9, RDW Coeff of Sue 12.3, Plt Count 260, MPV 10.2, Immature Gran % (Auto) 2.700 H, Neut % (Auto) 81.0 H, Lymph % (Auto) 10.2 L, [place] % (Auto) 5.9, Eos % (Auto) 0.0, Baso % (Auto) 0.2, Absolute Neuts (auto) 8.1 H, Absolute Lymphs (auto) 1.03, Nucleated RBC % 0, Reactive Lymphocytes RARE 07/09/21 06:50: Sodium 134 L, Potassium 3.9, Chloride 99, Carbon Dioxide 31.0, Anion Gap 4 L, BUN 20 H, Creatinine 0.79, Estim Creat Clear Calc 98.82, Est GFR (MDRD) Af Amer 128, Est GFR (MDRD) Non-Af 106, BUN/Creatinine Ratio 25.4 H, Glucose 105, Calcium 8.9, Total Bilirubin 0.80, AST 65 H, ALT 75 H, Alkaline Phosphatase 56, Total Protein 7.1, Albumin 2.8 L, Globulin 4.3 H, Albumin/Mony bulin Ratio 0.7 L Micro: Microbiology 07/06/21 08:50 Blood Culture (Wb) - Right Hand Blood Culture - Preliminary No growth in 48 hours. 07/06/21 08:35 Blood Culture (Wb) - Anticubital Left Blood Culture - Preliminary No growth in 48 hours. 07/06/21 08:23 Nasal Secretion SARS-CoV-2 Antigen (Rapid) - Final SARS-CoV-2 (COVID 19) Physical Exam Const alert, oriented x3, no apparent distress and average body habitus Constitutional Narrative: Upper middle-aged -[place] male sitting in the chair at the bedside watching television, appears comfortable, nontoxic appears frustrated General Appearance: cooperative Exam Limitations: no limitations HEENT normocephalic, head/scalp atraumatic and moist oral mucous membranes HEENT Narrative: No thrush Head and Scalp: normocephalic Eyes Eyes Narrative: No icterus Resp normal respiratory effort, no retractions, no use of accessory muscles and clear to auscultation bilaterally Resp Narrative: Diminished but clear Auscultation: Negative for crackles, rales, rhonchi or wheezes Cardio regular rate, regular rhythm, S1 normal heart sound, S2 normal heart sound, no murmurs, no rub, no gallops, no clicks and no JVD GI normal to inspection, nondistended, normoactive bowel sounds, soft to palpation, non-tender and non-distended Extremity no clubbing, cyanosis or edema Peripheral Pulses: Yes pulses 2+ throughout Neuro oriented x3 and moves all extremities Sensorium / Orientation: awake and alert Speech: speech normal Psych affect normal Assessment & Plan Assessment/Plan (1) Acute hypoxemic respiratory failure: (2) COVID-19: (3) Acute hypokalemia: (4) Hyponatremia: PLAN: Acute hypoxic respiratory failure secondary to COVID-19 pneumonia -Nonvaccinated -Symptom onset 06/27/2021--> will need quarantine until 07/17/2021 -I did discuss this with patient today -Continue remdesivir day 4 of 5 -Continue Decadron day -Patient has been weaned to 6 L heated high flow nasal cannula while at rest--> current SPO2 is 92 to 93% -Titrate oxygen to maintain sats greater than 92% -Continue supportive care -Discussed again with patient that he will need to be on 6 L nasal cannula or less with ambulation prior to going home--> patient voiced understanding -If he remains on 6 L or less by tomorrow I will test him with ambulation to assess whether or not he is ready for discharge yet Acute hyponatremia -Remains mild but improving -Suspect related to Covid infection -Continue to monitor -Patient is on HCTZ at baseline but is not currently receiving -Patient is on no medications at wastes sodium -Appears to fluctuate between 130 and 135 Hypertension -Continue amlodipine 10 mg daily -Blood pressures are stable -Hold home enalapril/HCTZ DVT prophylaxis -Continue enoxaparin CODE STATUS -Full code Charges/Coding Visit Charges Inpatient E&M: 06005 Subs Hosp L2
[2021-07-10] VITALS (7 sets, daily range): BP systolic 110–121; BP diastolic 66–77; PULSE 73–90; RESP 16–18; TEMP 36.3–36.8; O2SAT 90–96
[2021-07-10 06:53] LABS: Absolute Lymphocyte Count 0.87 X10^3/uL (0.83-4.51); Absolute Neutrophil Count 7.6 X10^3/uL (2.0-7.7); Basophil# 0.07 X10^3/uL; Basophil% 0.7 % (0-1); Hematocrit 45.6 % (40-54); Hemoglobin 15.3 g/dL (13.0-16.5); Lymphocyte # 0.87 X10^3/ul (0.83-4.51); Lymphocyte % 9.2 % (19-41); Mean Corp Hgb Conc 33.6 g/dL (32-36); Mean Corpuscular Hgb 30.1 pg (27.0-32.0); Mean Corpuscular Volume 89.6 fL (80-94); Mean Platelet Vol. 9.9 fl (6.2-12.0); Monocyte# 0.48 X10^3/uL; Monocyte% 5.1 % (0-10); NRBC Flagged by Analyzer 0 % (0-5); Neutrophil # 7.55 X10^3/uL (2.7-7.7); Neutrophil % 80.2 % (47-70); POSITIVE MORPHOLOGY YES; Platelet Count 263 K/mm3 (150-450); RBC Distribution Width CV 12.3 % (11.6-14.6); RBC Distribution Width SD 41.1 fl (35.1-43.9); Red Blood Count 5.09 M/mm3 (4.6-6.2); White Blood Count 9.4 K/mm3 (4.4-11.0)
[2021-07-10 06:58] LABS: Differential Indicated SCAN CRITERIA MET
[2021-07-10 07:20] LABS: ALB/GLOB Ratio 0.6 RATIO (0.9-2.4); AST(SGOT) 55 U/L (15-37); Alanine Aminotransfer ALT/SGPT 77 U/L (16-61); Albumin, Serum 2.7 g/dL (3.2-5.0); Alkaline Phosphatase 57 U/L (45-117); Anion Gap 6 (5-15); BUN 17 mg/dL (7-18); BUN/Creat Ratio 26.4 RATIO (10-20); Calcium,Total 8.7 mg/dL (8.5-10.1); Chloride 99 mmol/L (98-107); Creatinine, Serum 0.64 mg/dL (0.70-1.30); EST Glomerular Filtration Rate 133 mL/min (>60); Est Glom Filt Rate - Afr Amer 161 mL/min (>60); Estimated Creatinine Clearance 121.98 ml/min; Globulin 4.4 g/dL (2.2-4.2); Glucose 102 mg/dL (74-106); Potassium 3.6 mmol/L (3.5-5.1); Protein, Total 7.1 g/dL (6.4-8.2); Sodium Level 133 mmol/L (136-145)
[2021-07-10] MEDS: dexAMETHasone 4 MG Tablet 6 MG PO (10:21)
[2021-07-10] MEDS: Cholecalciferol (VIT D3) 25 MCG TABLET (1,000 UNITS) 125 MCG PO (10:21)
[2021-07-10] MEDS: Enoxaparin 40 MG/0.4 ML Syringe SC (10:22)
[2021-07-10] MEDS: amLODIPine 10 MG Tablet PO (10:22)
[2021-07-10] MEDS: Magnesium Chloride 64 MG Delay Rel.Tablet 128 MG PO (10:22)
[2021-07-10] MEDS: 0.9% Saline Lock 10 ML Syringe IV ×2 (10:22→20:31)
--- NOTE | 2021-07-10 10:35 | NURSING ---
completed walking oxygen test of 6 minutes ambulating in pt room on 6L NC. pt tolerated activity well. oxygen saturation stayed around 91-92% but dropped to 90% for a few moments. however, upon returning to recliner and recovering from activity, O2 dropped to 88%. recovered quickly and returned to 93% on 6L at rest. notified
--- NOTE | 2021-07-10 15:22 | PN.HOSP_ITS ---
Subjective Subjective Mr. Junior continues to be frustrated and would like to go home. He did have a ambulatory pulse oximetry done today and his oxygen saturation dipped into the 80s with 6 L nasal cannula with exertion. I explained that he is getting close to being able to be discharged but were not quite there yet. He indicates that he really needs to get home to his . I did discuss with him that I am hopeful for possible discharge tomorrow if he continues to improve the way he has been. Objective Data Objective Data Vital Signs: Vital Signs Temp Pulse Resp BP Pulse Ox 98.2 F 88 16 121/77 H 90 07/10/21 10:28 07/10/21 10:28 07/10/21 10:28 07/10/21 10:28 07/10/21 10:28 Oxygen Flow Rate (L/min) [At 6 REST with Oxygen] Oxygen Flow Rate (L/min) [ 6 AMBULATING with Oxygen #1] Oxygen Flow Rate (L/min) 6 Oxygen Delivery Method Nasal Cannula Weight: 80 kg Body Mass Index (BMI) 25.2 Intake & Output: Intake and Output for Last 24 Hours 07/08/21 07/09/21 07/10/21 23:59 23:59 23:59 Intake Total 1300 / 1300 2250 / 2550 700 / 700 Output Total 775 / 775 2300 / 2300 750 / 750 Balance 525 / 525 -50 / 250 -50 / -50 Lab / Micro Data Result Diagrams: 07/10/21 06:10 07/10/21 06:10 Labs: Laboratory Results - last 24 hr 07/10/21 06:10: Sodium 133 L, Potassium 3.6, Chloride 99, Carbon Dioxide 28.0, Anion Gap 6, BUN 17, Creatinine 0.64 L, Estim Creat Clear Calc 121.98, Est GFR (MDRD) Af Amer 161, Est GFR (MDRD) Non-Af 133, BUN/Creatinine Ratio 26.4 H, Glucose 102, Calcium 8.7, Total Bilirubin 1.00, AST 55 H, ALT 77 H, Alkaline Phosphatase 57, Total Protein 7.1, Albumin 2.7 L, Globulin 4.4 H, Albumin/Globulin Ratio 0.6 L 07/10/21 06:10: WBC 9.4, RBC 5.09, Hgb 15.3, Hct 45.6, MCV 89.6, MCH 30.1, MCHC 33.6, RDW Std Deviation 41.1, RDW Coeff of Sue 12.3, Plt Count 263, MPV 9.9, Immature Gran % (Auto) 4.800 H, Neut % (Auto) 80.2 H, Lymph % (Auto) 9.2 L, [place] % (Auto) 5.1, Eos % (Auto) 0.0, Baso % (Auto) 0.7, Absolute Neuts (auto) 7.6, Absolute Lymphs (auto) 0.87, Nucleated RBC % 0 Micro: Microbiology 07/06/21 08:50 Blood Culture (Wb) - Right Hand Blood Culture - Preliminary No growth in 48 hours. 07/06/21 08:35 Blood Culture (Wb) - Anticubital Left Blood Culture - Preliminary No growth in 48 hours. 07/06/21 08:23 Nasal Secretion SARS-CoV-2 Antigen (Rapid) - Final SARS-CoV-2 (COVID 19) Physical Exam Const alert, oriented x3, no apparent distress and average body habitus Constitutional Narrative: Upper middle-aged -[place] male sitting in the chair at the bedside watching television, appears comfortable, visibly frustrated General Appearance: cooperative Exam Limitations: no limitations HEENT normocephalic, head/scalp atraumatic and moist oral mucous membranes HEENT Narrative: No thrush noted Head and Scalp: normocephalic Eyes Eyes Narrative: No icterus Resp normal respiratory effort, no retractions, no use of accessory muscles and clear to auscultation bilaterally Resp Narrative: Diminished but clear Auscultation: Negative for crackles, rales, rhonchi or wheezes Cardio regular rate, regular rhythm, S1 normal heart sound, S2 normal heart sound, no murmurs, no rub, no gallops, no clicks and no JVD GI normal to inspection, nondistended, normoactive bowel sounds, soft to palpation, non-tender and non-distended Extremity no clubbing, cyanosis or edema Peripheral Pulses: Yes pulses 2+ throughout Neuro oriented x3 and moves all extremities Sensorium / Orientation: awake and alert Speech: speech normal Assessment & Plan Assessment/Plan (1) Acute hypoxemic respiratory failure: (2) COVID-19: (3) Acute hypokalemia: (4) Hyponatremia: PLAN: Acute hypoxic respiratory failure secondary to COVID-19 pneumonia -Nonvaccinated -Symptom onset 06/27/2021--> will need quarantine until 07/17/2021 -Continue remdesivir day -Continue Decadron day -Patient remains on 6 L heated high flow nasal cannula while at rest--> current SPO2 is 90 to 96% at rest -Titrate oxygen to maintain sats greater than 92% -Repeat ambulatory pulse oximetry tomorrow -Continue supportive care -Discussed again with patient that he will need to be on 6 L nasal cannula or less with ambulation prior to going home--> patient voiced understanding -Hopeful for discharge home in the next 24 hours Acute hyponatremia -Remains mild but improving -Suspect related to Covid infection -Continue to monitor -Patient is on HCTZ at baseline but is not currently receiving -Patient is on no medications at wastes sodium -Appears to fluctuate between 130 and 135 Hypertension -Continue amlodipine 10 mg daily -Blood pressures are stable -Hold home enalapril/HCTZ DVT prophylaxis -Continue enoxaparin CODE STATUS -Full code Charges/Coding Visit Charges Inpatient E&M: 86153 Subs Hosp L2
[2021-07-11] VITALS (7 sets, daily range): BP systolic 116–123; BP diastolic 72–81; PULSE 72–95; RESP 18–20; TEMP 36–36.7; O2SAT 87–94
[2021-07-11 07:20] LABS: Hematocrit 43.9 % (40-54); Hemoglobin 14.9 g/dL (13.0-16.5); Mean Corp Hgb Conc 33.9 g/dL (32-36); Mean Corpuscular Volume 88.3 fL (80-94); Mean Platelet Vol. 9.7 fl (6.2-12.0); POSITIVE COUNT YES; POSITIVE MORPHOLOGY YES; Platelet Count 256 K/mm3 (150-450); RBC Distribution Width CV 12.5 % (11.6-14.6); RBC Distribution Width SD 40.6 fl (35.1-43.9); Red Blood Count 4.97 M/mm3 (4.6-6.2); White Blood Count 10.1 K/mm3 (4.4-11.0)
[2021-07-11 07:23] LABS: Differential Indicated MANUAL DIFF
[2021-07-11 07:54] LABS: ALB/GLOB Ratio 0.6 RATIO (0.9-2.4); AST(SGOT) 40 U/L (15-37); Alanine Aminotransfer ALT/SGPT 63 U/L (16-61); Albumin, Serum 2.6 g/dL (3.2-5.0); Alkaline Phosphatase 56 U/L (45-117); Anion Gap 4 (5-15); BUN 16 mg/dL (7-18); BUN/Creat Ratio 26.3 RATIO (10-20); Calcium,Total 8.4 mg/dL (8.5-10.1); Chloride 102 mmol/L (98-107); Creatinine, Serum 0.61 mg/dL (0.70-1.30); EST Glomerular Filtration Rate 142 mL/min (>60); Est Glom Filt Rate - Afr Amer 172 mL/min (>60); Estimated Creatinine Clearance 127.98 ml/min; Globulin 4.1 g/dL (2.2-4.2); Glucose 96 mg/dL (74-106); Potassium 3.6 mmol/L (3.5-5.1); Protein, Total 6.7 g/dL (6.4-8.2); Sodium Level 132 mmol/L (136-145)
[2021-07-11 08:22] LABS: Eosinophil 1 % (0-5); Lymphocyte 3 % (19-41); Monocyte 3 % (0-10); Neutrophil-Band 1 % (0-5); Neutrophil-Segmented 92 % (47-70); Total Cells Counted 100 (MANUAL DIFF)
[2021-07-11 08:23] LABS: Platelet Estimate ADEQUATE (ADEQ); Red Cell Morphology NORM C+C NORMAL (NORM C&C)
[2021-07-11 08:24] LABS: Absolute Neutrophil Count 9.4 X10^3/uL (2.0-7.7)
[2021-07-11] MEDS: Enoxaparin 40 MG/0.4 ML Syringe SC (08:57)
[2021-07-11] MEDS: 0.9% Saline Lock 10 ML Syringe IV (08:57)
[2021-07-11] MEDS: dexAMETHasone 4 MG Tablet 6 MG PO (08:58)
[2021-07-11] MEDS: Magnesium Chloride 64 MG Delay Rel.Tablet 128 MG PO (08:59)
[2021-07-11] MEDS: Cholecalciferol (VIT D3) 25 MCG TABLET (1,000 UNITS) 125 MCG PO (08:59)
[2021-07-11] MEDS: amLODIPine 10 MG Tablet PO (08:59)
--- NOTE | 2021-07-11 20:00 | PCM.PN.HOSP ---
Subjective Subjective Patient was seen and examined today, he is still requiring high flow nasal cannula oxygen when ambulating, at rest he is requiring 6 L of oxygen by nasal cannula. Patient initially requested to be discharged home today, I told him that if he left today it would be AGAINST MEDICAL ADVICE and that I would not provide him oxygen at home and he would not survive, patient seemed to understand this and with his permission I talked with his by phone and let her know what was going on, she was not in favor him being discharged. Patient denies any fever or chills at this time, he denies any chest pain. Objective Data Objective Data Vital Signs: Vital Signs Temp Pulse Resp BP Pulse Ox 98.1 F 86 18 123/81 H 94 07/11/21 15:45 07/11/21 15:45 07/11/21 15:45 07/11/21 15:45 07/11/21 15:48 Oxygen Flow Rate (L/min) [At 6 REST with Oxygen] Oxygen Flow Rate (L/min) [ 6 AMBULATING with Oxygen #1] Oxygen Flow Rate (L/min) 5 Oxygen Delivery Method Nasal Cannula Weight: 80 kg Body Mass Index (BMI) 25.2 Intake & Output: Intake and Output for Last 24 Hours 07/09/21 07/10/21 07/11/21 23:59 23:59 23:59 Intake Total 2250 / 2550 1150 / 1150 1100 / 1100 Output Total 2300 / 2300 750 / 1750 2675 / 2675 Balance -50 / 250 400 / -600 -1575 / -1575 Lab / Micro Data Result Diagrams: 07/11/21 06:44 07/11/21 06:44 Labs: Laboratory Results - last 24 hr 07/11/21 06:44: Sodium 132 L, Potassium 3.6, Chloride 102, Carbon Dioxide 26.0, Anion Gap 4 L, BUN 16, Creatinine 0.61 L, Estim Creat Clear Calc 127.98, Est GFR (MDRD) Af Amer 172, Est GFR (MDRD) Non-Af 142, BUN/Creatinine Ratio 26.3 H, Glucose 96, Calcium 8.4 L, Total Bilirubin 0.90, AST 40 H, ALT 63 H, Alkaline Phosphatase 56, Total Protein 6.7, Albumin 2.6 L, Globulin 4.1, Albumin/Globulin Ratio 0.6 L 07/11/21 06:44: WBC 10.1, RBC 4.97, Hgb 14.9, Hct 43.9, MCV 88.3, MCH 30.0, MCHC 33.9, RDW Std Deviation 40.6, RDW Coeff of Sue 12.5, Plt Count 256, MPV 9.7, Neut % (Auto) Not Reportable, Absolute Neuts (auto) 9.4 H, Absolute Lymphs (auto) 3.00, Total Counted 100, Neutrophils % (Manual) 92 H, Band Neutrophils % 1, Lymphocytes % (Manual) 3 L, Monocytes % (Manual) 3, Eosinophils % (Manual) 1, Diff Path Review March, Platelet Estimate ADEQUATE, RBC Morphology NORM C+C Micro: Microbiology 07/06/21 08:35 Blood Culture (Wb) - Anticubital Left Blood Culture - Final No growth in 5 days. 07/06/21 08:50 Blood Culture (Wb) - Right Hand Blood Culture - Final No growth in 5 days. 07/06/21 08:23 Nasal Secretion SARS-CoV-2 Antigen (Rapid) - Final SARS-CoV-2 (COVID 19) Physical Exam Const alert, oriented x3 and well nourished General Appearance: cooperative, well kempt and well developed Orientation / Consciousness: awake, oriented to person, oriented to place and oriented to time HEENT normocephalic, head/scalp atraumatic and moist oral mucous membranes Head and Scalp: normocephalic Eyes PERRL, EOMs intact bilaterally and conjunctivae normal Neck nuchal rigidity, supple, no JVD, thyroid normal and no carotid bruits General: trachea midline Resp normal respiratory effort, no retractions and no use of accessory muscles Resp Narrative: Decreased breath sounds are noted bilaterally Auscultation: Negative for rales, rhonchi or wheezes Cardio regular rate, regular rhythm, S1 normal heart sound, S2 normal heart sound, no murmurs, no rub and no gallops GI normal to inspection, nondistended, normoactive bowel sounds, soft to palpation, non-tender and non-distended Extremity no clubbing, cyanosis or edema Skin no rashes or lesions noted General Skin Exam: no breakdown Neuro oriented x3, CN's II-XII intact bilaterally, no focal motor deficits and no sensory deficits noted Sensorium / Orientation: awake and alert Speech: speech normal Psych thought process normal and affect normal Assessment & Plan Assessment/Plan (1) COVID-19: PLAN: 1. COVID-19 pneumonia-continue Decadron, patient has completed 5 days of remdesivir #2 acute hypoxic respiratory failure-oxygen will be weaned as tolerated. #3 essential hypertension #4 hyponatremia-patient's sodium today was 132, no treatment is necessary at this time Charges/Coding Visit Charges Inpatient E&M: 50077 Subs Hosp L2
[2021-07-12] VITALS (14 sets, daily range): BP systolic 104–122; BP diastolic 55–77; PULSE 74–99; RESP 18–20; TEMP 36.3–37.4; O2SAT 86–98
[2021-07-12] MEDS: 0.9% Saline Lock 10 ML Syringe IV (06:26)
--- NOTE | 2021-07-12 07:26 | NURSING ---
Patient was on 8L high flow NC. When sitting in chair using urinal O2 saturation dropped to 77%. Increased to 10L high flow NC.
[2021-07-12 08:03] LABS: ALB/GLOB Ratio 0.6 RATIO (0.9-2.4); AST(SGOT) 36 U/L (15-37); Alanine Aminotransfer ALT/SGPT 51 U/L (16-61); Albumin, Serum 2.3 g/dL (3.2-5.0); Alkaline Phosphatase 54 U/L (45-117); Anion Gap 4 (5-15); BUN 16 mg/dL (7-18); BUN/Creat Ratio 25.4 RATIO (10-20); Calcium,Total 8.4 mg/dL (8.5-10.1); Chloride 103 mmol/L (98-107); Creatinine, Serum 0.63 mg/dL (0.70-1.30); EST Glomerular Filtration Rate 136 mL/min (>60); Est Glom Filt Rate - Afr Amer 165 mL/min (>60); Estimated Creatinine Clearance 123.92 ml/min; Globulin 4.1 g/dL (2.2-4.2); Glucose 90 mg/dL (74-106); Potassium 3.9 mmol/L (3.5-5.1); Protein, Total 6.4 g/dL (6.4-8.2); Sodium Level 134 mmol/L (136-145)
[2021-07-12] MEDS: Cholecalciferol (VIT D3) 25 MCG TABLET (1,000 UNITS) 125 MCG PO (08:14)
[2021-07-12] MEDS: amLODIPine 10 MG Tablet PO (08:15)
[2021-07-12] MEDS: Magnesium Chloride 64 MG Delay Rel.Tablet 128 MG PO (08:15)
[2021-07-12] MEDS: Enoxaparin 40 MG/0.4 ML Syringe SC (08:15)
[2021-07-12] MEDS: dexAMETHasone 4 MG Tablet 6 MG PO (08:18)
--- NOTE | 2021-07-12 13:11 | NURSING ---
Pt walked in room, see oxygen walking trial. pt then recovered while sitting in chair for 5 min. Then this nurse assisted in pt getting back to bed but laying prone. Laying prone at this time and spo2 97% on 10L NC. High flow.
--- NOTE | 2021-07-12 18:45 | PCM.PN.HOSP ---
Subjective Subjective Patient was seen and examined today, he is still requiring high flow oxygen, he is currently on oxygen at 10 L via nasal cannula. Patient does not seem anxious or confrontational today. I explained to him that he could not be discharged while on this high flow oxygen. Objective Data Objective Data Vital Signs: Vital Signs Temp Pulse Resp BP Pulse Ox 98.5 F 91 20 H 117/76 91 07/12/21 18:26 07/12/21 18:26 07/12/21 18:26 07/12/21 18:26 07/12/21 18:26 Oxygen Flow Rate (L/min) [At 10 REST with Oxygen] Oxygen Flow Rate (L/min) [ 10 AMBULATING with Oxygen #1] Oxygen Flow Rate (L/min) 10 Oxygen Delivery Method Nasal Cannula Weight: 80 kg Body Mass Index (BMI) 25.2 Intake & Output: Intake and Output for Last 24 Hours 07/10/21 07/11/21 07/12/21 23:59 23:59 23:59 Intake Total 1150 / 1150 1100 / 1100 600 / 600 Output Total 750 / 1750 3175 / 3175 1000 / 1000 Balance 400 / -600 -2075 / -2075 -400 / -400 Lab / Micro Data Result Diagrams: 07/11/21 06:44 07/12/21 06:50 Labs: Laboratory Results - last 24 hr 07/12/21 06:50: Sodium 134 L, Potassium 3.9, Chloride 103, Carbon Dioxide 27.0, Anion Gap 4 L, BUN 16, Creatinine 0.63 L, Estim Creat Clear Calc 123.92, Est GFR (MDRD) Af Amer 165, Est GFR (MDRD) Non-Af 136, BUN/Creatinine Ratio 25.4 H, Glucose 90, Calcium 8.4 L, Total Bilirubin 0.70, AST 36, ALT 51, Alkaline Phosphatase 54, Total Protein 6.4, Albumin 2.3 L, Globulin 4.1, Albumin/Globulin Ratio 0.6 L Micro: Microbiology 07/06/21 08:35 Blood Culture (Wb) - Anticubital Left Blood Culture - Final No growth in 5 days. 07/06/21 08:50 Blood Culture (Wb) - Right Hand Blood Culture - Final No growth in 5 days. 07/06/21 08:23 Nasal Secretion SARS-CoV-2 Antigen (Rapid) - Final SARS-CoV-2 (COVID 19) Physical Exam Narrative Const alert, oriented x3 and well nourished General Appearance: cooperative, well kempt and well developed Orientation / Consciousness: awake, oriented to person, oriented to place and oriented to time HEENT normocephalic, head/scalp atraumatic and moist oral mucous membranes Head and Scalp: normocephalic Eyes PERRL, EOMs intact bilaterally and conjunctivae normal Neck nuchal rigidity, supple, no JVD, thyroid normal and no carotid bruits General: trachea midline Resp normal respiratory effort, no retractions and no use of accessory muscles Resp Narrative: Decreased breath sounds are noted bilaterally Auscultation: Negative for rales, rhonchi or wheezes Cardio regular rate, regular rhythm, S1 normal heart sound, S2 normal heart sound, no murmurs, no rub and no gallops GI normal to inspection, nondistended, normoactive bowel sounds, soft to palpation, non-tender and non-distended Extremity no clubbing, cyanosis or edema Skin no rashes or lesions noted General Skin Exam: no breakdown Neuro oriented x3, CN's II-XII intact bilaterally, no focal motor deficits and no sensory deficits noted Sensorium / Orientation: awake and alert Speech: speech normal Psych thought process normal and affect normal Assessment & Plan Assessment/Plan (1) COVID-19: PLAN: 1. COVID-19 pneumonia-continue Decadron, patient has completed 5 days of remdesivir #2 acute hypoxic respiratory failure-oxygen will be weaned as tolerated. #3 essential hypertension #4 hyponatremia-patient's sodium today was 134, no treatment is necessary at this time Charges/Coding Visit Charges Inpatient E&M: 62646 Subs Hosp L2
--- NOTE | 2021-07-12 22:43 | PCS.PANDOC ---
PANDEMIC DOCUMENTATION INITIATED: Date: 06/16/2021 Time: 190
[2021-07-13] VITALS (12 sets, daily range): BP systolic 99–136; BP diastolic 67–87; PULSE 69–104; RESP 18–28; TEMP 36.6–37.8; O2SAT 88–98
[2021-07-13] MEDS: Cholecalciferol (VIT D3) 25 MCG TABLET (1,000 UNITS) 125 MCG PO (10:32)
[2021-07-13] MEDS: Enoxaparin 80 MG/0.8 ML Syringe SC ×2 (10:32→18:26)
[2021-07-13] MEDS: dexAMETHasone 4 MG Tablet 6 MG PO (10:33)
[2021-07-13] MEDS: Magnesium Chloride 64 MG Delay Rel.Tablet 128 MG PO (10:33)
--- NOTE | 2021-07-13 11:47 | NURSING ---
sp02 73% on 12 L Via High Flow. Pt sitting inchair, he was prone but could not tolerate for very long. This nurse increased o2 to 15L at spo2 only 84%/. CPs called to bring Airvo and come evaluate pt.
[2021-07-13] MEDS: Acetaminophen 325 MG Tablet 650 MG PO (12:01)
[2021-07-13] MEDS: amLODIPine 10 MG Tablet PO (12:02)
--- NOTE | 2021-07-13 12:07 | NURSING ---
Airvo on at 6L and 70% per CPS. spo2 91%
--- NOTE | 2021-07-13 12:33 | NURSING ---
Dr. Perdomo aware that Pt is on Airvo now and that earlier today pt was tachy at 104 and bp was lower. This nurse is aware that CTA on the of this month was negative for PE.
[2021-07-13 13:28] LABS: Absolute Lymphocyte Count 0.35 X10^3/uL (0.83-4.51); Absolute Neutrophil Count 9.4 X10^3/uL (2.0-7.7); Basophil# 0.03 X10^3/uL; Basophil% 0.3 % (0-1); Eosinophil# 0.01 X10^3/uL; Eosinophils% 0.1 % (0-5); Hematocrit 44.5 % (40-54); Hemoglobin 15.1 g/dL (13.0-16.5); Lymphocyte # 0.35 X10^3/ul (0.83-4.51); Lymphocyte % 3.2 % (19-41); Mean Corp Hgb Conc 33.9 g/dL (32-36); Mean Corpuscular Hgb 30.2 pg (27.0-32.0); Mean Platelet Vol. 9.5 fl (6.2-12.0); Monocyte# 0.59 X10^3/uL; Monocyte% 5.5 % (0-10); NRBC Flagged by Analyzer 0 % (0-5); Neutrophil # 9.38 X10^3/uL (2.7-7.7); POSITIVE DIFFERENTIAL YES; Platelet Count 235 K/mm3 (150-450); RBC Distribution Width CV 12.6 % (11.6-14.6); RBC Distribution Width SD 40.8 fl (35.1-43.9); White Blood Count 10.8 K/mm3 (4.4-11.0)
[2021-07-13 13:32] LABS: Differential Indicated SCAN CRITERIA MET
[2021-07-13 13:55] LABS: Differential Comment SCANNED
[2021-07-13] MEDS: levoFLOXacin IV 750 MG/150 ML BAG 100 MG IV (14:13)
--- NOTE | 2021-07-13 17:42 | PN.HOSP_ITS ---
Subjective Subjective Patient was seen and examined today, he is required Airvo to maintain his pulse ox today, he also spiked a slight temperature today and I have elected to place him on oral antibiotics at this time. I have also elected to place the patient on full anticoagulation due to his respiratory insufficiency. Finally, I added aerosol treatments to his regimen. Objective Data Objective Data Vital Signs: Vital Signs Temp Pulse Resp BP Pulse Ox 99.3 F H 90 20 H 121/81 H 95 07/13/21 14:08 07/13/21 14:08 07/13/21 14:08 07/13/21 14:08 07/13/21 14:08 Oxygen Flow Rate (L/min) [At 10 REST with Oxygen] Oxygen Flow Rate (L/min) [ 10 AMBULATING with Oxygen #1] Oxygen Flow Rate (L/min) 15 Oxygen Delivery Method Airvo Weight: 80 kg Body Mass Index (BMI) 25.2 Intake & Output: Intake and Output for Last 24 Hours 07/11/21 07/12/21 07/13/21 23:59 23:59 23:59 Intake Total 1100 / 1100 900 / 900 750 / 750 Output Total 3175 / 3175 1300 / 1300 975 / 975 Balance -2075 / -2075 -400 / -400 -225 / -225 Lab / Micro Data Result Diagrams: 07/13/21 13:05 07/12/21 06:50 Labs: Laboratory Results - last 24 hr 07/13/21 13:05: WBC 10.8, RBC 5.00, Hgb 15.1, Hct 44.5, MCV 89.0, MCH 30.2, MCHC 33.9, RDW Std Deviation 40.8, RDW Coeff of Sue 12.6, Plt Count 235, MPV 9.5, Immature Gran % (Auto) 3.900 H, Neut % (Auto) 87.0 H, Lymph % (Auto) 3.2 L, [place] % (Auto) 5.5, Eos % (Auto) 0.1, Baso % (Auto) 0.3, Absolute Neuts (auto) 9.4 H, Absolute Lymphs (auto) 0.35 L, Nucleated RBC % 0, Differential Comment SCANNED Micro: Microbiology 07/06/21 08:35 Blood Culture (Wb) - Anticubital Left Blood Culture - Final No growth in 5 days. 07/06/21 08:50 Blood Culture (Wb) - Right Hand Blood Culture - Final No growth in 5 days. 07/06/21 08:23 Nasal Secretion SARS-CoV-2 Antigen (Rapid) - Final SARS-CoV-2 (COVID 19) Physical Exam Const alert, oriented x3, no apparent distress and healthy appearing General Appearance: cooperative, well kempt and well developed Orientation / Consciousness: awake, oriented to person, oriented to place and oriented to time HEENT normocephalic, head/scalp atraumatic and moist oral mucous membranes Head and Scalp: normocephalic Eyes PERRL, EOMs intact bilaterally and conjunctivae normal Neck nuchal rigidity, supple, no JVD, thyroid normal and no carotid bruits General: trachea midline Resp no retractions, no use of accessory muscles and clear to auscultation bilaterally Auscultation: Negative for rales, rhonchi or wheezes Cardio regular rate, regular rhythm, S1 normal heart sound, S2 normal heart sound, no murmurs, no rub and no gallops GI normal to inspection, nondistended, normoactive bowel sounds, soft to palpation, non-tender and non-distended Extremity normal to inspection and no clubbing, cyanosis or edema Skin no rashes or lesions noted General Skin Exam: no breakdown Neuro oriented x3, CN's II-XII intact bilaterally, no focal motor deficits and no sensory deficits noted Sensorium / Orientation: awake and alert Speech: speech normal Psych thought process normal and affect normal Assessment & Plan Assessment/Plan (1) COVID-19: PLAN: 1. COVID-19 pneumonia-continue Decadron, patient has completed 5 days of remdesivir, again I have decided to fully anticoagulate the patient, I have added aerosol treatments to his regimen. #2 acute hypoxic respiratory failure-oxygen will be weaned as tolerated. #3 essential hypertension #4 fever-etiology unclear, at this point I believe it would be prudent to place the patient on empiric antibiotic treatment, I have placed him on oral Levaquin. Charges/Coding Visit Charges Inpatient E&M: 92886 Subs Hosp L2
[2021-07-13] MEDS: Albuterol 2.5 MG/3 ML VIAL.NEB. INHALATION (19:10)
[2021-07-14] VITALS (16 sets, daily range): BP systolic 111–141; BP diastolic 57–75; PULSE 72–105; RESP 16–22; TEMP 35.4–37; O2SAT 90–95
[2021-07-14] MEDS: levoFLOXacin 750 MG Tablet PO (04:11)
[2021-07-14] MEDS: Enoxaparin 80 MG/0.8 ML Syringe SC ×2 (04:12→18:20)
[2021-07-14] MEDS: Albuterol 2.5 MG/3 ML VIAL.NEB. INHALATION ×3 (07:11→19:10)
[2021-07-14] MEDS: Cholecalciferol (VIT D3) 25 MCG TABLET (1,000 UNITS) 125 MCG PO (09:59)
[2021-07-14] MEDS: Magnesium Chloride 64 MG Delay Rel.Tablet 128 MG PO (10:00)
[2021-07-14] MEDS: amLODIPine 10 MG Tablet PO (10:00)
[2021-07-14] MEDS: dexAMETHasone 4 MG Tablet 6 MG PO (10:00)
--- NOTE | 2021-07-14 12:48 | CASEMGMT ---
Pt screened with [facility] Palliative Care Screening Tool due to strata 3, pt did not meet criteria.
[2021-07-14 13:14] LABS: Pathologist Review Reviewed
--- NOTE | 2021-07-14 19:56 | PN.HOSP_ITS ---
Subjective Subjective Patient was seen and examined today, he remains on Airvo, he appears to be comfortable at this time. Objective Data Objective Data Vital Signs: Vital Signs Temp Pulse Resp BP Pulse Ox 98.5 F 74 18 121/68 H 90 07/14/21 18:23 07/14/21 19:11 07/14/21 19:11 07/14/21 18:23 07/14/21 19:11 Oxygen Flow Rate (L/min) [At 10 REST with Oxygen] Oxygen Flow Rate (L/min) [ 10 AMBULATING with Oxygen #1] Oxygen Flow Rate (L/min) 60 Oxygen Delivery Method Airvo Weight: 80 kg Body Mass Index (BMI) 25.2 Intake & Output: Intake and Output for Last 24 Hours 07/12/21 07/13/21 07/14/21 23:59 23:59 23:59 Intake Total 900 / 900 1470 / 1470 2049 / 2049 Output Total 1300 / 1300 2225 / 2225 1200 / 1200 Balance -400 / -400 -755 / -755 850 / 850 Lab / Micro Data Result Diagrams: 07/13/21 13:05 07/12/21 06:50 Labs: Laboratory Results - last 24 hr 07/11/21 06:44: Diff Path Review Reviewed Micro: Microbiology 07/06/21 08:35 Blood Culture (Wb) - Anticubital Left Blood Culture - Final No growth in 5 days. 07/06/21 08:50 Blood Culture (Wb) - Right Hand Blood Culture - Final No growth in 5 days. 07/06/21 08:23 Nasal Secretion SARS-CoV-2 Antigen (Rapid) - Final SARS-CoV-2 (COVID 19) Physical Exam Narrative alert, oriented x3, no apparent distress and healthy appearing General Appearance: cooperative, well kempt and well developed Orientation / Consciousness: awake, oriented to person, oriented to place and oriented to time HEENT normocephalic, head/scalp atraumatic and moist oral mucous membranes Head and Scalp: normocephalic Eyes PERRL, EOMs intact bilaterally and conjunctivae normal Neck nuchal rigidity, supple, no JVD, thyroid normal and no carotid bruits General: trachea midline Resp no retractions, no use of accessory muscles and clear to auscultation bilaterally Auscultation: Negative for rales, rhonchi or wheezes Cardio regular rate, regular rhythm, S1 normal heart sound, S2 normal heart sound, no murmurs, no rub and no gallops GI normal to inspection, nondistended, normoactive bowel sounds, soft to palpation, non-tender and non-distended Extremity normal to inspection and no clubbing, cyanosis or edema Skin no rashes or lesions noted General Skin Exam: no breakdown Neuro oriented x3, CN's II-XII intact bilaterally, no focal motor deficits and no sensory deficits noted Sensorium / Orientation: awake and alert Speech: speech normal Psych thought process normal and affect normal Assessment & Plan Assessment/Plan (1) COVID-19: PLAN: 1. COVID-19 pneumonia-continue Decadron, patient has completed 5 days of remdesivir, patient is fully anticoagulated at this time and is on aeros ol treatments. I do not have anything to add to the patient's regimen at this time. #2 acute hypoxic respiratory failure-oxygen will be weaned as tolerated. #3 essential hypertension #4 fever-etiology unclear, patient is afebrile at this time, I would recommend treating the patient empirically for 7 days with Levaquin, he is on day 2 today of Levaquin. Charges/Coding Multi Select Codes Visit Charges Visit Charges: 85141 Subs Hosp L2
[2021-07-15] VITALS (15 sets, daily range): BP systolic 93–125; BP diastolic 61–76; PULSE 71–99; RESP 18–22; TEMP 36–36.6; O2SAT 85–98
[2021-07-15] MEDS: 0.9% Saline Lock 10 ML Syringe IV ×2 (00:02→16:55)
[2021-07-15] MEDS: levoFLOXacin 750 MG Tablet PO (06:50)
[2021-07-15] MEDS: Enoxaparin 80 MG/0.8 ML Syringe SC ×2 (06:50→17:39)
[2021-07-15] MEDS: Albuterol 2.5 MG/3 ML VIAL.NEB. INHALATION ×4 (07:04→19:06)
[2021-07-15] MEDS: Cholecalciferol (VIT D3) 25 MCG TABLET (1,000 UNITS) 125 MCG PO (10:19)
[2021-07-15] MEDS: Magnesium Chloride 64 MG Delay Rel.Tablet 128 MG PO (10:19)
[2021-07-15] MEDS: dexAMETHasone 4 MG Tablet 6 MG PO (10:20)
[2021-07-15] MEDS: amLODIPine 10 MG Tablet PO (10:20)
--- NOTE | 2021-07-15 16:23 | EX.PCM.CONCC ---
Assessment & Plan Assessment/Plan (1) Acute hypoxemic respiratory failure: (2) COVID-19: (3) Thrombocytopenia associated with COVID-19: (4) Essential hypertension: PLAN: RECOMMENDATIONS: 1. Completed Remdesivir. Continue Decadron to complete 10 days 2. Okay to continue aerosol treatments 3. Wean oxygen as tolerated 4. Unclear utility of obtaining sputum culture given 2 days of Levaquin therapy 5. Diuretic challenge 6. Repeat chest x-ray IMPRESSIONS: 1. Acute hypoxic respiratory failure secondary to COVID-19 pneumonia Patient is appropriate on Decadron therapy. Patient has completed Remdesivir. Patient has been on Levaquin for 2 days, so it is unlikely that sputum culture will be helpful. Patient's fever curve is improving on antibiotics indicating a possible secondary bacterial infection. We will repeat chest x-ray to look for increased infiltrates. Patient will receive a diuretic challenge. We will continue to monitor kidney function and challenge with Lasix as tolerated. Continue to wean oxygen. 2. Essential hypertension Patient requiring triple therapy to control blood pressure previously. Current blood pressure appears to be doing well. We will have to watch blood pressure given need for steroid therapy. 3. Unvaccinated Covid status/advanced age/hypertension Complicates care, management, recovery and prognosis. Patient's renal function is doing well at this time. Okay to continue with baseline medications. Blood sugars appear to be appropriate despite steroid therapy. HPI Consult Data Date of Consult: 07/15/21 HPI Narrative HPI Narrative: ELBA KIRK is a 65 M, with past medical history listed below, who presented to [facility] on 07/06/2021 secondary to progressive shortness of breath, vomiting, diarrhea, body aches and congestion. Patient reported that he started with some body aches approximately 10 days prior to presentation. Patient did report that he was not vaccinated against COVID-19. Patient denies any previous pulmonary history. Patient has never required inhalers or supplemental oxygen In the ER, patient was febrile to 101.8 ?F and tachypneic to 35 breaths/min. Patient was slightly hypotensive at 106/62 and requiring 6 L nasal cannula to maintain saturations. Laboratory data in the ER was relatively unremarkable except for an elevated hemoglobin at 16.2, normal coagulation studies, potassium of 3.1 and normal LFTs. UA was unremarkable. A CTA of the chest was obtained showing bilateral groundglass opacities with no PE. The patient was admitted to the floor and initiated on Decadron and Remdesivir. Patient initially required high flow nasal cannula, but over the last couple of days has had worsening oxygenation. Patient is currently requiring Airvo to maintain saturations. For this reason, pulmonary consult was obtained. Patient states that he does not have any history of respiratory problems in the past. Patient has not required any supplemental oxygen previously. Patient denies any occupational exposures. Patient subjectively feels better today compared to yesterday, but is still requiring 93% FiO2 on Airvo to maintain saturations. Patient does have a cough productive of white to pale yellow secretions. Review of systems otherwise negative from a constitutional, HEENT, respiratory, cardiovascular, GI, genitourinary, musculoskeletal, skin, neurologic, psychiatric and hematologic system unless stated above. [facility] Medical History Back pain Essential hypertension Hair loss Leukopenia Osteoarthritis Palpitations Home Medications amlodipine 10 mg PO DAILY 06/19/17 [History Last Taken 07/05/21] enalapril-hydrochlorothiazide 1 tab PO DAILY 06/19/17 [History Last Taken 07/05/21] ibuprofen 600 mg tablet 600 mg PO TID PRN 09/16/20 [History Last Taken Unknown] magnesium oxide 500 mg tablet 500 mg PO DAILY 09/16/20 [History Last Taken 07/05/21] zinc 50 mg tablet 50 mg PO DAILY 09/16/20 [History Last Taken 07/05/21] cholecalciferol (vitamin D3) 125 mcg (5,000 unit) capsule 125 mcg PO DAILY 09/18/20 [History Last Taken 07/05/21] Allergy/AdvReac Type Severity Reaction Status Date / Time No Known Allergies Allergy Verified 07/06/21 08:26 Family History Mother Hypertension Diabetes Brother Hypertension Diabetes Surgical History History of colonoscopy (~2017) History of excision of epidermal inclusion cyst History of surgery on left wrist Social History Smoking Status: Never smoker alcohol intake: current details: Rarely substance use type: does not use caffeine: Yes (2 cups) Type: coffee ROS ROS Narrative See HPI Physical Exam Const alert, oriented x3 and well nourished General Appearance: cooperative, well kempt and well developed Orientation / Consciousness: awake, oriented to person, oriented to place and oriented to time HEENT normocephalic, head/scalp atraumatic and moist oral mucous membranes Head and Scalp: normocephalic Eyes PERRL, EOMs intact bilaterally and conjunctivae normal Neck nuchal rigidity, supple, no JVD, thyroid normal and no carotid bruits General: trachea midline Chest inspection of chest normal Chest: symmetrical chest wall rise; Negative for crepitus Resp no retractions and no use of accessory muscles Auscultation: diminished lung sounds; Negative for rales, rhonchi or wheezes Cardio regular rate, regular rhythm, S1 normal heart sound, S2 normal heart sound, no murmurs, no rub and no gallops GI normal to inspection, nondistended, normoactive bowel sounds, soft to palpation, non-tender and non-distended Extremity no clubbing, cyanosis or edema Skin no rashes or lesions noted General Skin Exam: no breakdown Neuro oriented x3, CN's II-XII intact bilaterally, no focal motor deficits and no sensory deficits noted Sensorium / Orientation: awake and alert Speech: speech normal Psych thought process normal and affect normal Lab / Micro Data Result Diagrams: 07/13/21 13:05 07/12/21 06:50 Charges/Coding Visit Charges Inpatient E&M: 70456 Init Hosp L3
--- NOTE | 2021-07-15 16:47 | RAD_ITS ---
STUDY: X-RAY CHEST REASON FOR EXAM: Male, 65 years old. Hypoxia TECHNIQUE: Single AP portable view of the chest. 2 images. COMPARISON: CT chest 07/06/2021 FINDINGS: There are bilateral basilar infiltrates, hazy opacification in the bilateral peripheral mid lung parenchyma right greater than left. Aeration in comparison to prior CT chest appears improved. There is no demonstrated pleural abnormality. Normal size heart. Normal mediastinum and emma. Normal visualized pulmonary arteries. Normal visualized aortic arch and descending thoracic aorta. Normal visualized thoracic spine. Normal visualized ribs, clavicles, and shoulders. There is no demonstrated abnormality of the visualized soft tissue structures of the upper abdomen. RAD/Chest 1 View (Portable) IMPRESSION: Multifocal pneumonia bilaterally appears improved. Imaging features can be seen with covid 19 pneumonia, but are nonspecific and may occur with a variety of infectious and noninfectious processes. Electronically Signed: Monica Bryant MD at 3:20 EDT , Service support ,
[2021-07-15] MEDS: Furosemide 40 MG/4 ML Vial IV (16:55)
--- NOTE | 2021-07-15 19:08 | CPS ---
decreased airvo to 50l and 75% sats 94% maurilio well
--- NOTE | 2021-07-15 20:00 | PN.HOSP_ITS ---
Subjective Subjective Patient was seen and examined. Remains on Airvo. No fevers or chills. Objective Data Objective Data Vital Signs: Vital Signs Temp Pulse Resp BP Pulse Ox 97.7 F L 88 18 125/74 H 95 07/15/21 17:37 07/15/21 19:07 07/15/21 19:07 07/15/21 17:37 07/15/21 19:07 Oxygen Flow Rate (L/min) [At 10 REST with Oxygen] Oxygen Flow Rate (L/min) [ 10 AMBULATING with Oxygen #1] Oxygen Flow Rate (L/min) 60 Oxygen Delivery Method Airvo Weight: 80 kg Body Mass Index (BMI) 25.2 Intake & Output: Intake and Output for Last 24 Hours 07/13/21 07/14/21 07/15/21 23:59 23:59 23:59 Intake Total 1470 / 1470 205 / 2050 1730 / 1730 Output Total 2225 / 2225 1999 / 1999 3150 / 3150 Balance -755 / -755 50 / 50 -1420 / -1420 Lab / Micro Data Result Diagrams: 07/13/21 13:05 07/12/21 06:50 Micro: Microbiology 07/06/21 08:35 Blood Culture (Wb) - Anticubital Left Blood Culture - Final No growth in 5 days. 07/06/21 08:50 Blood Culture (Wb) - Right Hand Blood Culture - Final No growth in 5 days. 07/06/21 08:23 Nasal Secretion SARS-CoV-2 Antigen (Rapid) - Final SARS-CoV-2 (COVID 19) Physical Exam Narrative Physical exam: General: Alert, Oriented x3, Cooperative, in moderate respiratory distress, unable HEENT: Atraumatic Oral: Moist Mucosa Neck: Supple Lungs: Diminished to auscultation Cardiovascular: HS I+II, regular, no murmurs Abdomen: Bowel Sounds Present, Soft, Non Tender Extremities: No edema Assessment & Plan Assessment/Plan (1) Hyponatremia: (2) COVID-19: (3) Acute hypoxemic respiratory failure: PLAN: 1. Acute hypoxic respiratory failure secondary to acute COVID-19 pne [place] Patient remains high on Airvo. He has completed remdesivir Episode of fever has improved. Continue on Decadron, continue empiric Lovenox, Levaquin Trial of Lasix x1 Check urine Legionella and streptococcal antigen Pulmonology consult 2. Hypertension, continue on amlodipine Charges/Coding Visit Charges Inpatient E&M: 86264 Subs Hosp L3
[2021-07-16] VITALS (12 sets, daily range): BP systolic 109–127; BP diastolic 63–79; PULSE 71–96; RESP 16–32; TEMP 36.3–37.2; O2SAT 88–98
--- NOTE | 2021-07-16 03:19 | CPS ---
pt sleeping-sats 97%--decreased to 50l and 66%-water changed
--- NOTE | 2021-07-16 05:05 | RAD_ITS ---
HISTORY: Worsening resp failure EXAMINATION/TECHNIQUE: XR Chest 1 View COMPARISON: AP chest x-ray from one day prior FINDINGS: LINES/DEVICES: None. LUNGS: Persistent multifocal airspace opacities within bilateral mid to lower lungs. No overt pulmonary edema. No sizable pleural effusion. No pneumothorax. MEDIASTINUM AND CARDIOVASCULAR STRUCTURES: Cardiac silhouette not enlarged. Central airways and mediastinal contour are unremarkable. BONES AND SOFT TISSUES: No acute findings. RAD/Chest 1 View (Portable) IMPRESSION: Persistent bilateral pulmonary airspace disease/infiltrate. at 0727 Reported and signed by: Corey Juarez MD Electronically Signed: Corey Juarez MD at 7:26 EDT Tel , Service support ,
[2021-07-16] MEDS: levoFLOXacin 750 MG Tablet PO (06:05)
[2021-07-16] MEDS: Enoxaparin 80 MG/0.8 ML Syringe SC ×2 (06:05→08:52)
[2021-07-16 06:51] LABS: Absolute Lymphocyte Count 0.71 X10^3/uL (0.83-4.51); Absolute Neutrophil Count 7.2 X10^3/uL (2.0-7.7); Basophil# 0.02 X10^3/uL; Basophil% 0.2 % (0-1); Hematocrit 42.8 % (40-54); Hemoglobin 14.2 g/dL (13.0-16.5); Lymphocyte # 0.71 X10^3/ul (0.83-4.51); Lymphocyte % 8.2 % (19-41); Mean Corp Hgb Conc 33.2 g/dL (32-36); Mean Corpuscular Hgb 29.9 pg (27.0-32.0); Mean Corpuscular Volume 90.1 fL (80-94); Mean Platelet Vol. 9.8 fl (6.2-12.0); Monocyte# 0.55 X10^3/uL; Monocyte% 6.3 % (0-10); NRBC Flagged by Analyzer 0 % (0-5); Neutrophil # 7.24 X10^3/uL (2.7-7.7); Neutrophil % 83.2 % (47-70); Platelet Count 194 K/mm3 (150-450); RBC Distribution Width CV 12.8 % (11.6-14.6); RBC Distribution Width SD 42.5 fl (35.1-43.9); Red Blood Count 4.75 M/mm3 (4.6-6.2); White Blood Count 8.7 K/mm3 (4.4-11.0)
[2021-07-16] MEDS: Albuterol 2.5 MG/3 ML VIAL.NEB. INHALATION ×3 (07:10→19:36)
[2021-07-16 07:22] LABS: ALB/GLOB Ratio 0.5 RATIO (0.9-2.4); AST(SGOT) 53 U/L (15-37); Alanine Aminotransfer ALT/SGPT 119 U/L (16-61); Alkaline Phosphatase 95 U/L (45-117); Anion Gap 5 (5-15); BUN 14 mg/dL (7-18); Calcium,Total 8.4 mg/dL (8.5-10.1); Chloride 99 mmol/L (98-107); Creatinine, Serum 0.82 mg/dL (0.70-1.30); EST Glomerular Filtration Rate 100 mL/min (>60); Est Glom Filt Rate - Afr Amer 122 mL/min (>60); Estimated Creatinine Clearance 95.21 ml/min; Globulin 4.4 g/dL (2.2-4.2); Glucose 116 mg/dL (74-106); Potassium 3.7 mmol/L (3.5-5.1); Protein, Total 6.4 g/dL (6.4-8.2); Sodium Level 135 mmol/L (136-145)
[2021-07-16] MEDS: dexAMETHasone 4 MG Tablet 6 MG PO (08:47)
[2021-07-16] MEDS: Furosemide 40 MG/4 ML Vial IV (08:47)
--- NOTE | 2021-07-16 08:48 | PN.CC_ITS ---
Assessment & Plan Assessment/Plan (1) Acute hypoxemic respiratory failure: (2) COVID-19: (3) Thrombocytopenia associated with COVID-19: (4) Essential hypertension: PLAN: RECOMMENDATIONS: 1. Completed Remdesivir. Continue Decadron to complete 10 days 2. Okay to continue aerosol treatments. Encourage incentive spirometer and out of bed as tolerated 3. Wean oxygen as tolerated 4. Unclear utility of obtaining sputum culture given 2 days of Levaquin therapy 5. Diuretic challenge IMPRESSIONS: 1. Acute hypoxic respiratory failure secondary to COVID-19 pneumonia Patient is appropriate on Decadron therapy. Patient has completed Remdesivir. Patient has been on Levaquin for 2 days, so it is unlikely that sputum culture will be helpful. Patient's fever curve is improving on antibiotics indicating a possible secondary bacterial infection. Chest x-ray appears grossly unchanged compared to previous. We will continue to challenge patient with diuretics as renal function allows. We will continue to monitor kidney function and challenge with Lasix as tolerated. Continue to wean oxygen. 2. Essential hypertension Patient requiring triple therapy to control blood pressure previously. Current blood pressure appears to be doing well. We will have to watch blood pressure given Decadron side effects. 3. Unvaccinated Covid status/advanced age/hypertension Complicates care, management, recovery and prognosis. Patient's renal function is doing well at this time. Okay to continue with baseline medications. Blood sugars appear to be appropriate despite steroid therapy. Subjective Subjective Patient did okay overnight. No acute issues were reported. Patient feels subjectively slightly improved compared to previous. Patient's oxygenation did improve overnight, but he did have to be increased this morning secondary to eating breakfast. Patient continues to have a cough. Objective Data Objective Data Vital Signs: Vital Signs Temp Pulse Resp BP Pulse Ox 36.3 C L 96 32 H 119/74 93 07/16/21 02:20 07/16/21 07:10 07/16/21 07:10 07/16/21 02:20 07/16/21 07:10 Oxygen Flow Rate (L/min) [At 10 REST with Oxygen] Oxygen Flow Rate (L/min) [ 10 AMBULATING with Oxygen #1] Oxygen Flow Rate (L/min) 55 Oxygen Delivery Method Airvo Weight: 80 kg Body Mass Index (BMI) 25.2 Intake & Output: Intake and Output for Last 24 Hours 07/14/21 07/15/21 07/16/21 23:59 23:59 23:59 Intake Total 2049 1730 / 1730 500 / 500 Output Total 1999 4350 / 4350 450 / 450 Balance 50 / 50 -2620 / -2620 50 / 50 Lab / Micro Data Result Diagrams: 07/16/21 06:30 07/16/21 06:30 Labs: Laboratory Results - last 24 hr 07/16/21 06:30: WBC 8.7, RBC 4.75, Hgb 14.2, Hct 42.8, MCV 90.1, MCH 29.9, MCHC 33.2, RDW Std Deviation 42.5, RDW Coeff of Sue 12.8, Plt Count 194, MPV 9.8, Immature Gran % (Auto) 2.100 H, Neut % (Auto) 83.2 H, Lymph % (Auto) 8.2 L, [place] % (Auto) 6.3, Eos % (Auto) 0.0, Baso % (Auto) 0.2, Absolute Neuts (auto) 7.2, Absolute Lymphs (auto) 0.71 L, Nucleated RBC % 0 07/16/21 06:30: Sodium 135 L, Potassium 3.7, Chloride 99, Carbon Dioxide 31.0, Anion Gap 5, BUN 14, Creatinine 0.82, Estim Creat Clear Calc 95.21, Est GFR (MDRD) Af Amer 122, Est GFR (MDRD) Non-Af 100, BUN/Creatinine Ratio 17.0, Glucose 116 H, Calcium 8.4 L, Total Bilirubin 0.50, AST 53 H, ALT 119 H, Alkaline Phosphatase 95, Total Protein 6.4, Albumin 2.0 L, Globulin 4.4 H, Albumin/Globulin Ratio 0.5 L Micro: Microbiology 07/16/21 06:00 Urine, Clean Catch Legionella Antigen - Final 07/16/21 06:00 Urine, Clean Catch Streptococcus pneumoniae Antigen (M - Final 07/06/21 08:35 Blood Culture (Wb) - Anticubital Left Blood Culture - Final No growth in 5 days. 07/06/21 08:50 Blood Culture (Wb) - Right Hand Blood Culture - Final No growth in 5 days. 07/06/21 08:23 Nasal Secretion SARS-CoV-2 Antigen (Rapid) - Final SARS-CoV-2 (COVID 19) Radiography Diagnostic Testing: Radiology Impression Chest X-Ray 07/15/21 16:47 IMPRESSION: Multifocal pneumonia bilaterally appears improved. Imaging features can be seen with covid 19 pneumonia, but are nonspecific and may occur with a variety of infectious and noninfectious processes. Electronically Signed: Monica Bryant MD at 3:20 EDT , Service support , Physical Exam Const alert, oriented x3 and well nourished General Appearance: cooperative, well kempt and well developed Orientation / Consciousness: awake, oriented to person, oriented to place and oriented to time HEENT normocephalic, head/scalp atraumatic and moist oral mucous membranes Head and Scalp: normocephalic Eyes PERRL, EOMs intact bilaterally and conjunctivae normal Neck nuchal rigidity, supple, no JVD, thyroid normal and no carotid bruits General: trachea midline Chest inspection of chest normal Chest: symmetrical chest wall rise; Negative for crepitus Resp no retractions and no use of accessory muscles Auscultation: diminished lung sounds; Negative for rales, rhonchi or wheezes Cardio regular rate, regular rhythm, S1 normal heart sound, S2 normal heart sound, no murmurs, no rub and no gallops GI normal to inspection, nondistended, normoactive bowel sounds, soft to palpation, non-tender and non-distended Extremity no clubbing, cyanosis or edema Skin no rashes or lesions noted General Skin Exam: no breakdown Neuro oriented x3, CN's II-XII intact bilaterally, no focal motor deficits and no sens ory deficits noted Sensorium / Orientation: awake and alert Speech: speech normal Psych thought process normal and affect normal Charges/Coding Visit Charges Inpatient E&M: 63234 Subs Hosp L3
[2021-07-16] MEDS: amLODIPine 10 MG Tablet PO (08:51)
[2021-07-16] MEDS: Magnesium Chloride 64 MG Delay Rel.Tablet 128 MG PO (08:51)
[2021-07-16] MEDS: Cholecalciferol (VIT D3) 25 MCG TABLET (1,000 UNITS) 125 MCG PO (08:52)
--- NOTE | 2021-07-16 14:52 | PCM.PN.HOSP ---
Subjective Subjective Patient seen and examined. He feels better. Denies fever or chills. Objective Data Objective Data Vital Signs: Vital Signs Temp Pulse Resp BP Pulse Ox 99.0 F 86 28 H 109/63 92 07/16/21 11:58 07/16/21 13:45 07/16/21 13:35 07/16/21 11:58 07/16/21 13:45 Oxygen Flow Rate (L/min) [At 10 REST with Oxygen] Oxygen Flow Rate (L/min) [ 10 AMBULATING with Oxygen #1] Oxygen Flow Rate (L/min) 60 Oxygen Delivery Method Airvo Weight: 80 kg Body Mass Index (BMI) 25.2 Intake & Output: Intake and Output for Last 24 Hours 07/14/21 07/15/21 07/16/21 23:59 23:59 23:59 Intake Total 2049 / 2049 1730 / 1730 500 / 500 Output Total 1999 / 1999 4350 / 4350 1550 / 1550 Balance 50 / 50 -2620 / -2620 -1050 / -1050 Lab / Micro Data Result Diagrams: 07/16/21 06:30 07/16/21 06:30 Labs: Laboratory Results - last 24 hr 07/16/21 06:30: WBC 8.7, RBC 4.75, Hgb 14.2, Hct 42.8, MCV 90.1, MCH 29.9, MCHC 33.2, RDW Std Deviation 42.5, RDW Coeff of Sue 12.8, Plt Count 194, MPV 9.8, Immature Gran % (Auto) 2.100 H, Neut % (Auto) 83.2 H, Lymph % (Auto) 8.2 L, [place] % (Auto) 6.3, Eos % (Auto) 0.0, Baso % (Auto) 0.2, Absolute Neuts (auto) 7.2, Absolute Lymphs (auto) 0.71 L, Nucleated RBC % 0 07/16/21 06:30: Sodium 135 L, Potassium 3.7, Chloride 99, Carbon Dioxide 31.0, Anion Gap 5, BUN 14, Creatinine 0.82, Estim Creat Clear Calc 95.21, Est GFR (MDRD) Af Amer 122, Est GFR (MDRD) Non-Af 100, BUN/Creatinine Ratio 17.0, Glucose 116 H, Calcium 8.4 L, Total Bilirubin 0.50, AST 53 H, ALT 119 H, Alkaline Phosphatase 95, Total Protein 6.4, Albumin 2.0 L, Globulin 4.4 H, Albumin/Globulin Ratio 0.5 L Micro: Microbiology 07/16/21 06:00 Urine, Clean Catch Legionella Antigen - Final 07/16/21 06:00 Urine, Clean Catch Streptococcus pneumoniae Antigen (M - Final 07/06/21 08:35 Blood Culture (Wb) - Anticubital Left Blood Culture - Final No growth in 5 days. 07/06/21 08:50 Blood Culture (Wb) - Right Hand Blood Culture - Final No growth in 5 days. 07/06/21 08:23 Nasal Secretion SARS-CoV-2 Antigen (Rapid) - Final SARS-CoV-2 (COVID 19) Radiography Diagnostic Testing: Radiology Impression Chest X-Ray 07/15/21 16:47 IMPRESSION: Multifocal pneumonia bilaterally appears improved. Imaging features can be seen with covid 19 pneumonia, but are nonspecific and may occur with a variety of infectious and noninfectious processes. Electronically Signed: Monica Bryant MD at 3:20 EDT , Service support , Physical Exam Narrative Physical exam: General: Alert, Oriented x3, Cooperative, in mild respiratory distress, on Airvo HEENT: Atraumatic Oral: Moist Mucosa Neck: Supple Lungs: Diminished to auscultation Cardiovascular: HS I+II, regular, no murmurs Abdomen: Bowel Sounds Present, Soft, Non Tender Extremities: No edema Assessment & Plan Assessment/Plan (1) Hyponatremia: (2) COVID-19: (3) Acute hypoxemic respiratory failure: PLAN: 1. Acute hypoxic respiratory failure secondary to acute COVID-19 pneumonia Patient remains high on Airvo. Has completed remdesivir Episode of fever has improved. Continue on Decadron, continue empiric Lovenox, Levaquin Continue on intermittent Lasix Urine Legionella and streptococcal antigen are negative Pulmonology consulted 2. Hypertension, continue on amlodipine Charges/Coding Visit Charges Inpatient E&M: 62885 Subs Hosp L3
[2021-07-16] MEDS: Potassium Chloride Oral Tablet 20 MEQ PO (16:47)
--- NOTE | 2021-07-16 21:05 | NURSING ---
Spoke with through pt's FaceTime. Update given and questions answered at that time.
[2021-07-17] VITALS (27 sets, daily range): BP systolic 72–176; BP diastolic 56–99; PULSE 69–123; RESP 12–56; TEMP 35.8–37.6; O2SAT 77–100
[2021-07-17] MEDS: BENZOCAINE/MENTHOL 1 LOZENGE MUCOUS MEM ×2 (02:30→05:20)
[2021-07-17] MEDS: Enoxaparin 80 MG/0.8 ML Syringe SC ×2 (05:20→18:12)
[2021-07-17] MEDS: levoFLOXacin 750 MG Tablet PO (05:20)
[2021-07-17] MEDS: Senna/Docusate Sodium 1 Tablet 2 TABLET PO (05:20)
[2021-07-17 07:26] LABS: Absolute Lymphocyte Count 0.87 X10^3/uL (0.83-4.51); Absolute Neutrophil Count 7.9 X10^3/uL (2.0-7.7); Basophil# 0.03 X10^3/uL; Basophil% 0.3 % (0-1); Hematocrit 43.4 % (40-54); Hemoglobin 14.5 g/dL (13.0-16.5); Lymphocyte # 0.87 X10^3/ul (0.83-4.51); Mean Corp Hgb Conc 33.4 g/dL (32-36); Mean Corpuscular Hgb 30.1 pg (27.0-32.0); Mean Corpuscular Volume 90.2 fL (80-94); Monocyte# 0.67 X10^3/uL; Monocyte% 6.9 % (0-10); NRBC Flagged by Analyzer 0 % (0-5); Neutrophil # 7.89 X10^3/uL (2.7-7.7); Neutrophil % 81.7 % (47-70); Platelet Count 206 K/mm3 (150-450); RBC Distribution Width CV 12.6 % (11.6-14.6); Red Blood Count 4.81 M/mm3 (4.6-6.2); White Blood Count 9.7 K/mm3 (4.4-11.0)
[2021-07-17] MEDS: Albuterol 2.5 MG/3 ML VIAL.NEB. INHALATION ×3 (07:43→20:01)
[2021-07-17 07:45] LABS: ALB/GLOB Ratio 0.4 RATIO (0.9-2.4); AST(SGOT) 35 U/L (15-37); Alanine Aminotransfer ALT/SGPT 116 U/L (16-61); Alkaline Phosphatase 96 U/L (45-117); Anion Gap 4 (5-15); BUN 16 mg/dL (7-18); BUN/Creat Ratio 21.8 RATIO (10-20); Calcium,Total 8.9 mg/dL (8.5-10.1); Chloride 101 mmol/L (98-107); Creatinine, Serum 0.73 mg/dL (0.70-1.30); EST Glomerular Filtration Rate 114 mL/min (>60); Est Glom Filt Rate - Afr Amer 138 mL/min (>60); Estimated Creatinine Clearance 106.94 ml/min; Globulin 4.6 g/dL (2.2-4.2); Glucose 94 mg/dL (74-106); Potassium 4.2 mmol/L (3.5-5.1); Protein, Total 6.6 g/dL (6.4-8.2); Sodium Level 135 mmol/L (136-145)
[2021-07-17] MEDS: Potassium Chloride Oral Tablet 20 MEQ PO (08:54)
[2021-07-17] MEDS: Cholecalciferol (VIT D3) 25 MCG TABLET (1,000 UNITS) 125 MCG PO (08:54)
[2021-07-17] MEDS: amLODIPine 10 MG Tablet PO (08:55)
[2021-07-17] MEDS: Magnesium Chloride 64 MG Delay Rel.Tablet 128 MG PO (08:55)
--- NOTE | 2021-07-17 09:55 | PCA ---
Poornima De León (Pts person to contact) dropped paperwork off for [employer]. Ladarius (Secratary) called Poornima and notified her that our Hospitalist do not fill this paperwork out and that she needed to contact Pts PCP to have it filled out.
--- NOTE | 2021-07-17 10:24 | PN.CC_ITS ---
Assessment & Plan Assessment/Plan (1) Acute hypoxemic respiratory failure: (2) COVID-19: (3) Thrombocytopenia associated with COVID-19: (4) Essential hypertension: PLAN: RECOMMENDATIONS: 1. Completed Remdesivir and Decadron 2. Okay to continue aerosol treatments. Encourage incentive spirometer and out of bed as tolerated 3. Wean oxygen as tolerated 4. Reasonable to complete 5 days of antibiotics 5. Diuretic challenge IMPRESSIONS: 1. Acute hypoxic respiratory failure secondary to COVID-19 pneumonia Patient is appropriate on Decadron therapy. Patient has completed Remdesivir. Will complete a 5-day course of Levaquin empirically. Chest x-ray appears grossly unchanged compared to previous. We will continue to challenge patient with diuretics as renal function allows. We will continue to monitor kidney function and challenge with Lasix as tolerated. Continue to wean oxygen. 2. Essential hypertension Patient requiring triple therapy to control blood pressure previously. Current blood pressure appears to be doing well. We will have to watch blood pressure given Decadron side effects. 3. Unvaccinated Covid status/advanced age/hypertension Complicates care, management, recovery and prognosis. Patient's renal function is doing well at this time. Okay to continue with baseline medications. Blood sugars appear to be appropriate despite steroid therapy. Addendum 8:30 PM: At approximately 5:45 PM, I was notified the patient has had significant desaturation while up on MedSurg. Patient was attempting to be transition to BiPAP, but was having difficulty with compliance. Patient was also noted to be desaturating. At approximately 6:45 PM, the patient was brought to the intensive care unit in extremis and desaturating. The team was mobilized and the patient received 20 mg of etomidate, 4 mg of Versed and 100 of succinylcholine. The patient was intubated with a size 8 tube using a MAC 4 gl robert scope with a grade 1 view. The tube was advanced through the vocal cords with direct visualization, endotracheal tube condensation and bilateral breath sounds to confirm placement. Patient also had a CO2 monitor change. OG was placed. Tube placements were confirmed with x-ray. Patient has persisted with significant hypoxia despite sedation. Patient was eventually transition to APRV. Precedex was added to propofol and fentanyl sedation. A total of 45 minutes of critical care time was spent independent of earlier assessment during his respiratory crisis (5:45 PM to 8:40 PM) Subjective Subjective Patient did well overnight. No acute issues were reported. Nursing did report patient was desaturating while eating, but patient subjectively feels improved compared to previous. Objective Data Objective Data Vital Signs: Vital Signs Temp Pulse Resp BP Pulse Ox 36.1 C L 84 20 H 103/59 L 91 07/17/21 08:51 07/17/21 09:32 07/17/21 08:51 07/17/21 08:51 07/17/21 09:32 Oxygen Flow Rate (L/min) [At 10 REST with Oxygen] Oxygen Flow Rate (L/min) [ 10 AMBULATING with Oxygen #1] Oxygen Flow Rate (L/min) 60 Oxygen Delivery Method Airvo Weight: 80 kg Body Mass Index (BMI) 25.2 Intake & Output: Intake and Output for Last 24 Hours 07/15/21 07/16/21 07/17/21 23:59 23:59 23:59 Intake Total 1730 / 1730 500 / 500 450 / 450 Output Total 4350 / 4350 1550 / 1550 400 / 400 Balance -2620 / -2620 -1050 / -1050 50 / 50 Lab / Micro Data Result Diagrams: 07/17/21 06:40 07/17/21 06:40 Labs: Laboratory Results - last 24 hr 07/17/21 06:40: WBC 9.7, RBC 4.81, Hgb 14.5, Hct 43.4, MCV 90.2, MCH 30.1, MCHC 33.4, RDW Std Deviation 42.0, RDW Coeff of Sue 12.6, Plt Count 206, MPV 10.0, Immature Gran % (Auto) 2.100 H, Neut % (Auto) 81.7 H, Lymph % (Auto) 9.0 L, [place] % (Auto) 6.9, Eos % (Auto) 0.0, Baso % (Auto) 0.3, Absolute Neuts (auto) 7.9 H, Absolute Lymphs (auto) 0.87, Nucleated RBC % 0 07/17/21 06:40: Sodium 135 L, Potassium 4.2, Chloride 101, Carbon Dioxide 30.0, Anion Gap 4 L, BUN 16, Creatinine 0.73, Estim Creat Clear Calc 106.94, Est GFR (MDRD) Af Amer 138, Est GFR (MDRD) Non-Af 114, BUN/Creatinine Ratio 21.8 H, Glucose 94, Calcium 8.9, Total Bilirubin 0.60, AST 35, ALT 116 H, Alkaline Phosphatase 96, Total Protein 6.6, Albumin 2.0 L, Globulin 4.6 H, Albumin/Globulin Ratio 0.4 L Micro: Microbiology 07/16/21 06:00 Urine, Clean Catch Legionella Antigen - Final 07/16/21 06:00 Urine, Clean Catch Streptococcus pneumoniae Antigen (M - Final 07/06/21 08:35 Blood Culture (Wb) - Anticubital Left Blood Culture - Final No growth in 5 days. 07/06/21 08:50 Blood Culture (Wb) - Right Hand Blood Culture - Final No growth in 5 days. 07/06/21 08:23 Nasal Secretion SARS-CoV-2 Antigen (Rapid) - Final SARS-CoV-2 (COVID 19) Radiography Diagnostic Testing: Radiology Impression Chest X-Ray 07/16/21 05:05 IMPRESSION: Persistent bilateral pulmonary airspace disease/infiltrate. at 0727 Reported and signed by: Corey Juarez MD Electronically Signed: Corey Juarez MD at 7:26 EDT Tel , Service support , Physical Exam Const alert, oriented x3 and well nourished General Appearance: cooperative, well kempt and well developed Orientation / Consciousness: awake, oriented to person, oriented to place and oriented to time HEENT normocephalic, head/scalp atraumatic and moist oral mucous membranes Head and Scalp: normocephalic Eyes PERRL, EOMs intact bilaterally and conjunctivae normal Neck nuchal rigidity, supple, no JVD, thyroid normal and no carotid bruits General: trachea midline Chest inspection of chest normal Chest: symmetrical chest wall rise; Negative for crepitus Resp no retractions and no use of accessory muscles Auscultation: diminished lung sounds; Negative for rales, rhonchi or wheezes Cardio regular rate, regular rhythm, S1 normal heart sound, S2 normal heart sound, no murmurs, no rub and no gallops GI normal to inspection, nondistended, normoactive bowel sounds, soft to palpation, non-tender and non-distended Extremity no clubbing, cyanosis or edema Skin no rashes or lesions noted General Skin Exam: no breakdown Neuro oriented x3, CN's II-XII intact bilaterally, no focal motor deficits and no sensory deficits noted Sensorium / Orientation: awake and alert Speech: speech normal Psych thought process normal and affect normal Charges/Coding Visit Charges Inpatient E&M: 22716 Subs Hosp L3 Multi Select Codes Hospitalists' Procedures Procedures: 49693 Critial Care 1st Hr
[2021-07-17] MEDS: Furosemide 40 MG Tablet PO ×2 (11:29→18:12)
--- NOTE | 2021-07-17 11:51 | NURSING ---
Fannie in from respiratory and increases the airvo. pulse ox now 98%. Pt still appears somewhat SOB. but states he feels better.
--- NOTE | 2021-07-17 12:18 | PCM.PN.HOSP ---
Subjective Subjective Patient was seen and examined. Patient's oxygen saturation has worsened. He remains on Airvo. Denies any new complaints Objective Data Objective Data Vital Signs: Vital Signs Temp Pulse Resp BP Pulse Ox 97.9 F 88 22 H 110/74 86 07/17/21 11:30 07/17/21 11:30 07/17/21 11:30 07/17/21 11:30 07/17/21 11:30 Oxygen Flow Rate (L/min) [At 10 REST with Oxygen] Oxygen Flow Rate (L/min) [ 10 AMBULATING with Oxygen #1] Oxygen Flow Rate (L/min) 60 Oxygen Delivery Method Airvo Weight: 80 kg Body Mass Index (BMI) 25.2 Intake & Output: Intake and Output for Last 24 Hours 07/15/21 07/16/21 07/17/21 23:59 23:59 23:59 Intake Total 1730 / 1730 500 / 500 450 / 450 Output Total 4350 / 4350 1550 / 1550 400 / 400 Balance -2620 / -2620 -1050 / -1050 50 / 50 Lab / Micro Data Result Diagrams: 07/17/21 06:40 07/17/21 06:40 Labs: Laboratory Results - last 24 hr 07/17/21 06:40: WBC 9.7, RBC 4.81, Hgb 14.5, Hct 43.4, MCV 90.2, MCH 30.1, MCHC 33.4, RDW Std Deviation 42.0, RDW Coeff of Sue 12.6, Plt Count 206, MPV 10.0, Immature Gran % (Auto) 2.100 H, Neut % (Auto) 81.7 H, Lymph % (Auto) 9.0 L, [facility] % (Auto) 6.9, Eos % (Auto) 0.0, Baso % (Auto) 0.3, Absolute Neuts (auto) 7.9 H, Absolute Lymphs (auto) 0.87, Nucleated RBC % 0 07/17/21 06:40: Sodium 135 L, Potassium 4.2, Chloride 101, Carbon Dioxide 30.0, Anion Gap 4 L, BUN 16, Creatinine 0.73, Estim Creat Clear Calc 106.94, Est GFR (MDRD) Af Amer 138, Est GFR (MDRD) Non-Af 114, BUN/Creatinine Ratio 21.8 H, Glucose 94, Calcium 8.9, Total Bilirubin 0.60, AST 35, ALT 116 H, Alkaline Phosphatase 96, Total Protein 6.6, Albumin 2.0 L, Globulin 4.6 H, Albumin/Globulin Ratio 0.4 L Micro: Microbiology 07/16/21 06:00 Urine, Clean Catch Legionella Antigen - Final 07/16/21 06:00 Urine, Clean Catch Streptococcus pneumoniae Antigen (M - Final 07/06/21 08:35 Blood Culture (Wb) - Anticubital Left Blood Culture - Final No growth in 5 days. 07/06/21 08:50 Blood Culture (Wb) - Right Hand Blood Culture - Final No growth in 5 days. 07/06/21 08:23 Nasal Secretion SARS-CoV-2 Antigen (Rapid) - Final SARS-CoV-2 (COVID 19) Radiography Diagnostic Testing: Radiology Impression Chest X-Ray 07/16/21 05:05 IMPRESSION: Persistent bilateral pulmonary airspace disease/infiltrate. at 0727 Reported and signed by: Corey Juarez MD Electronically Signed: Corey Juarez MD at 7:26 EDT Tel , Service support , Physical Exam Narrative Physical exam: General: Alert, Oriented x3, Cooperative, in mild respiratory distress, on Airvo HEENT: Atraumatic Oral: Moist Mucosa Neck: Supple Lungs: Diminished to auscultation Cardiovascular: HS I+II, regular, no murmurs Abdomen: Bowel Sounds Present, Soft, Non Tender Extremities: No edema Assessment & Plan Assessment/Plan (1) Hyponatremia: (2) COVID-19: (3) Acute hypoxemic respiratory failure: PLAN: 1. Acute hypoxic respiratory failure secondary to acute COVID-19 pneumonia Patient remains high on Airvo. Has completed remdesivir Episode of fever has improved. Continue Levaquin Continue on Decadron, continue empiric Lovenox Continue on intermittent Lasix Urine Legionella and streptococcal antigen are negative Pulmonology following 2. Hypertension, continue on amlodipine Charges/Coding Visit Charges Inpatient E&M: 73831 Subs Hosp L3
--- NOTE | 2021-07-17 18:50 | NURSING ---
to icu per bed.
--- NOTE | 2021-07-17 18:51 | NURSING ---
1840facetime with pt spouse to update her on pt status.
--- NOTE | 2021-07-17 19:09 | RAD_ITS ---
STUDY: X-RAY CHEST REASON FOR EXAM: Male, 65 years old. increased shortness of breath TECHNIQUE: AP portable COMPARISON: 07/16/2021 FINDINGS: Bilateral infiltrates are seen within both upper and lower lobes with predominantly peripheral involvement consistent with Covid 19 pneumonia.. There is no demonstrated pleural abnormality. Endotracheal tube is noted with tip approximately 6 cm proximal to gómez. Nasogastric tube is seen with tip in the stomach Normal size heart. Normal mediastinum and emma. Normal visualized pulmonary arteries. Normal visualized aortic arch and descending thoracic aorta. Dorsal spine demonstrates degenerative change. Normal visualized ribs, clavicles, and shoulders. There is no demonstrated abnormality of the visualized soft tissue structures of the upper abdomen. There is improved aeration in the right lower lobe with increasing airspace disease in left upper lobe since previous study. RAD/Chest 1 View (Portable) IMPRESSION: Findings consistent with bilateral Covid 19 pneumonia with increasing airspace disease in the left upper lobe but improving aeration in the right lower lobe Electronically Signed: Coleman Barrow MD at 22:11 EDT , Service support ,
[2021-07-17] MEDS: Propofol 10MG/Ml 1,000 MG/100 ML Bottle 4.8 MG CONT INF ×2 (19:15→23:00)
--- NOTE | 2021-07-17 19:27 | PCM.HOSP.N ---
Hospitalist Note that patient not doing well on air Vo. States that she was notified by MedSurg RN that patient's pulse ox has been slowly declining rapidly decline to 78% on air Vo 60 L 90%. Upon evaluation of patient patient's respiratory rate in the 30s to 40s, started on BiPAP approximately 5 minutes prior to my arrival to room. Pulse ox up to 92% on AVAPS 100% FiO2 however patient not tolerating BiPAP, rapidly becoming anxious. Following discussion with Dr. Madrigal and Dr. Aden patient was transferred to the ICU and subsequently intubated per Dr. Aden. Dr. Madrigal was subsequently notified of patient's condition and events taking place following her prior phone call
[2021-07-17] MEDS: LORazepam 2 MG/ML Syringe 4 MG IV (19:47)
[2021-07-17] MEDS: Furosemide 40 MG/4 ML Vial IV (20:52)
[2021-07-17] MEDS: 0.9% Saline Lock 10 ML Syringe IV (20:53)
[2021-07-17] MEDS: TITRATION PARAMETER CHANGE 1 EACH IV (21:00)
[2021-07-17 21:30] LABS: Base Excess 5 mmol/L (-2 to +2); Blood Gas Specimen Type ART; FI02 100; Mode APRV; O2 Delivery Device Adult Vent; PO2 71 mmHG (75-100); RR 12; SITE L Radial; SO2 94 % (95-99); Total Carbon Dioxide 32 mmol/L; pCO2 49.8 mmHg (35-45); pH 7.39 (7.35-7.45)
[2021-07-18] VITALS (42 sets, daily range): BP systolic 76–186; BP diastolic 38–110; PULSE 90–140; RESP 13–47; TEMP 36.6–37.4; O2SAT 75–94
[2021-07-18 04:51] LABS: Allen Test Positive; Base Excess 3 mmol/L (-2 to +2); Bicarbonate 27.8 mmol/L (22-26); Blood Gas Specimen Type ART; FI02 100; Mode BiLevel; O2 Delivery Device Adult Vent; PO2 61 mmHG (75-100); RR 12; SITE R Radial; SO2 91 % (95-99); Total Carbon Dioxide 29 mmol/L; pCO2 44.8 mmHg (35-45)
[2021-07-18 05:25] LABS: Absolute Neutrophil Count 11.3 X10^3/uL (2.0-7.7); Basophil# 0.03 X10^3/uL; Basophil% 0.2 % (0-1); Eosinophil# 0.02 X10^3/uL; Eosinophils% 0.2 % (0-5); Hematocrit 44.9 % (40-54); Hemoglobin 15.1 g/dL (13.0-16.5); Lymphocyte % 8.3 % (19-41); Mean Corp Hgb Conc 33.6 g/dL (32-36); Mean Corpuscular Hgb 30.3 pg (27.0-32.0); Mean Corpuscular Volume 90.2 fL (80-94); Mean Platelet Vol. 10.5 fl (6.2-12.0); Monocyte% 4.5 % (0-10); NRBC Flagged by Analyzer 0 % (0-5); Neutrophil # 11.26 X10^3/uL (2.7-7.7); Neutrophil % 85.3 % (47-70); Platelet Count 230 K/mm3 (150-450); RBC Distribution Width CV 13.1 % (11.6-14.6); RBC Distribution Width SD 43.3 fl (35.1-43.9); Red Blood Count 4.98 M/mm3 (4.6-6.2); White Blood Count 13.2 K/mm3 (4.4-11.0)
[2021-07-18 05:50] LABS: ALB/GLOB Ratio 0.4 RATIO (0.9-2.4); AST(SGOT) 66 U/L (15-37); Alanine Aminotransfer ALT/SGPT 113 U/L (16-61); Albumin, Serum 1.9 g/dL (3.2-5.0); Alkaline Phosphatase 118 U/L (45-117); Anion Gap 7 (5-15); BUN 29 mg/dL (7-18); BUN/Creat Ratio 21.2 RATIO (10-20); Calcium,Total 8.3 mg/dL (8.5-10.1); Chloride 94 mmol/L (98-107); Creatinine, Serum 1.37 mg/dL (0.70-1.30); EST Glomerular Filtration Rate 56 mL/min (>60); Est Glom Filt Rate - Afr Amer 67 mL/min (>60); Estimated Creatinine Clearance 56.98 ml/min; Globulin 5.1 g/dL (2.2-4.2); Glucose 86 mg/dL (74-106); Magnesium 2.1 mg/dL (1.6-2.6); Phosphorus 5.8 mg/dL (2.5-4.9); Potassium 6.3 mmol/L (3.5-5.1); Sodium Level 129 mmol/L (136-145)
--- NOTE | 2021-07-18 06:30 | RAD_ITS ---
STUDY: X-RAY CHEST REASON FOR EXAM: Male, 65 years old. CHEST PAIN SOB TECHNIQUE: XR Chest 1 View COMPARISON: Yesterday FINDINGS: There is no demonstrated pleural abnormality. There is bilateral infiltrate / atelectasis. There is an NGT and ET tube in place. Subcutaneous emphysema. Normal size heart. Normal mediastinum and emma. Normal visualized pulmonary arteries. There is atherosclerotic calcification of the aortic arch with tortuosity. There are diffuse degenerative changes of the visualized thoracic spine. There is degenerative osteoarthritis of the bilateral shoulders. There is no demonstrated abnormality of the visualized soft tissue structures of the upper abdomen. RAD/Chest 1 View (Portable) IMPRESSION: Pulmonary findings appear worse. Electronically Signed: Ismael Patel MD at 8:12 EDT , Service support ,
[2021-07-18] MEDS: Albuterol 2.5 MG/3 ML VIAL.NEB. INHALATION ×2 (06:43→13:28)
[2021-07-18] MEDS: Polyethylene Glycol 3350 17 GM PACKET NG (08:00)
[2021-07-18] MEDS: Enoxaparin 80 MG/0.8 ML Syringe SC (08:00)
[2021-07-18] MEDS: Sodium Polystyrene Sulfonate 15 GM/60 ML UDC NG (08:00)
--- NOTE | 2021-07-18 08:40 | PCM.PN.INT ---
Assessment & Plan Assessment/Plan (1) Acute hypoxemic respiratory failure: (2) COVID-19: (3) Thrombocytopenia associated with COVID-19: (4) Essential hypertension: PLAN: RECOMMENDATIONS: 1. Completed Remdesivir and Decadron. Will reinitiate Decadron dosing 2. Wean FiO2 as tolerated. 3. Attempt to wean P high to limit pneumomediastinum 4. Reasonable to complete 5 days of antibiotics 5. Hold on further diuretics given change in renal function 6. Dose with Kayexalate and MiraLAX IMPRESSIONS: 1. Acute hypoxic respiratory failure secondary to COVID-19 pneumonia complicated by pneumomediastinum Patient is much worse compared to previous. Will reinitiate Decadron therapy. Patient has completed Remdesivir. Will complete a 5-day course of Levaquin empirically. Chest x-ray shows a pneumomediastinum. We will continue to challenge patient with diuretics as renal function allows. Attempt to wean oxygen as tolerated. Still requiring significant sedation and P high to maintain saturations. ABG shows adequate oxygenation and ventilation on the current settings. 2. Essential hypertension Patient requiring triple therapy to control blood pressure previously. Current blood pressure appears to be doing well. We will have to watch blood pressure given Decadron side effects. 3. Unvaccinated Covid status/advanced age/hypertension Complicates care, management, recovery and prognosis. Patient's renal function is doing well at this time. Okay to continue with baseline medications. Blood sugars appear to be appropriate despite steroid therapy. TIME: 32 minutes critical care time spent addressing patient's acute hypoxic respiratory failure, pneumomediastinum, review of all data and collaboration with care team (7 AM to 8 AM) Subjective Subjective Overnight events should be noted. Patient on maximal vent therapy at this time. Synchrony is much improved overnight. No fever has been noted. Patient continues to have good urine output. Patient currently sedated and not answering questions. Objective Data Objective Data Chest x-ray was personally reviewed. Noted to have subcutaneous emphysema and pneumomediastinum. Vital Signs: Vital Signs Temp Pulse Resp BP Pulse Ox 37.1 C 91 45 H 120/57 L 91 07/18/21 04:00 07/18/21 06:43 07/18/21 06:43 07/18/21 06:34 07/18/21 06:43 Oxygen Flow Rate (L/min) [At 10 REST with Oxygen] Oxygen Flow Rate (L/min) [ 10 AMBULATING with Oxygen #1] Oxygen Flow Rate (L/min) 60 Oxygen Delivery Method Mechanical Ventilator Weight: 74.389 kg Body Mass Index (BMI) 25.2 Intake & Output: Intake and Output for Last 24 Hours 07/16/21 07/17/21 07/18/21 23:59 23:59 23:59 Intake Total 500 / 500 524.46 / 549.26 215.20 / 215.20 Output Total 1550 / 1550 2250 / 2250 Balance -1050 / -1050 -1725.54 / -1700.74 215. / 215.20 Lab / Micro Data Result Diagrams: 07/18/21 04:50 07/18/21 04:50 Labs: Laboratory Results - last 24 hr 07/18/21 04:50: WBC 13.2 H, RBC 4.98, Hgb 15.1, Hct 44.9, MCV 90.2, MCH 30.3, MCHC 33.6, RDW Std Deviation 43.3, RDW Coeff of Sue 13.1, Plt Count 230, MPV 10.5, Immature Gran % (Auto) 1.500 H, Neut % (Auto) 85.3 H, Lymph % (Auto) 8.3 L, [place] % (Auto) 4.5, Eos % (Auto) 0.2, Baso % (Auto) 0.2, Absolute Neuts (auto) 11.3 H, Absolute Lymphs (auto) 1.10, Nucleated RBC % 0 07/18/21 04:50: Sodium 129 L, Potassium 6.3 H*, Chloride 94 L, Carbon Dioxide 28.0, Anion Gap 7, BUN 29 H, Creatinine 1.37 H, Estim Creat Clear Calc 56.98, Est GFR (MDRD) Af Amer 67, Est GFR (MDRD) Non-Af 56 L, BUN/Creatinine Ratio 21.2 H, Glucose 86, Calcium 8.3 L, Phosphorus 5.8 H, Magnesium 2.1, Total Bilirubin 0.80, AST 66 H, ALT 113 H, Alkaline Phosphatase 118 H, Total Protein 7.0, Albumin 1.9 L, Globulin 5.1 H, Albumin/Globulin Ratio 0.4 L Micro: Microbiology 07/16/21 06:00 Urine, Clean Catch Legionella Antigen - Final 07/16/21 06:00 Urine, Clean Catch Streptococcus pneumoniae Antigen (M - Final 07/06/21 08:35 Blood Culture (Wb) - Anticubital Left Blood Culture - Final No growth in 5 days. 07/06/21 08:50 Blood Culture (Wb) - Right Hand Blood Culture - Final No growth in 5 days. 07/06/21 08:23 Nasal Secretion SARS-CoV-2 Antigen (Rapid) - Final SARS-CoV-2 (COVID 19) ABG Data ABG results: ABG 07/17/21 07/18/21 21:27 04:47 Specimen Type ART ART Sample Site L Radial R Radial pH 7.39 7.40 Bicarbonate Actual 30.0 H 27.8 H Total CO2 32 29 Base Excess 5 H 3 H O2 Saturation 94 L 91 L O2 % 100 100 ABG pCO2 49.8 H 44.8 ABG pO2 71 L 61 L Bruce Test N/A Positive Respiration Rate 12 12 O2 Delivery Device Adult Vent Adult Vent Vent Mode APRV BiLevel Clinical Comments PHIGH28 THIGH4.5 pH28. TH 4.5 Radiography Diagnostic Testing: Radiology Impression Chest X-Ray 07/17/21 19:09 IMPRESSION: Findings consistent with bilateral Covid 19 pneumonia with increasing airspace disease in the left upper lobe but improving aeration in the right lower lobe Electronically Signed: Coleman Barrow MD at 22:11 EDT , Service support , Chest X-Ray 07/18/21 06:30 IMPRESSION: Pulmonary findings appear worse. Electronically Signed: Ismael Patel MD at 8:12 EDT , Service support , Physical Exam Const well nourished General Appearance: well kempt, well developed, intubated and patient mechanically ventilated Orientation / Consciousness: lethargic HEENT normocephalic, head/scalp atraumatic and moist oral mucous membranes Head and Scalp: normocephalic Eyes PERRL, EOMs intact bilaterally and conjunctivae normal Neck nuchal rigidity, supple, no JVD, thyroid normal and no carotid bruits General: trachea midline Chest inspection of chest normal Chest: symmetrical chest wall rise and crepitus clavicle right (Some extension into the neck) mid-clavicular Resp no retractions and no use of accessory muscles Auscultation: diminished lung sounds; Negative for rales, rhonchi or wheezes Cardio regular rate, regular rhythm, S1 normal heart sound, S2 normal heart sound, no murmurs, no rub and no gallops GI normal to inspection, nondistended, normoactive bowel sounds, soft to palpation, non-tender and non-distended Extremity no clubbing, cyanosis or edema Skin no rashes or lesions noted General Skin Exam: no breakdown Neuro oriented x3, CN's II-XII intact bilaterally, no focal motor deficits and no sensory deficits noted Sensorium / Orientation: awake and alert Speech: speech normal Psych thought process normal and affect normal Charges/Coding Procedures Hospitalists Procedures: 53729 Critial Care 1st Hr
[2021-07-18] MEDS: Cholecalciferol (VIT D3) 25 MCG TABLET (1,000 UNITS) 125 MCG PO (12:02)
[2021-07-18] MEDS: Famotidine 20 MG Tablet GT (12:07)
[2021-07-18] MEDS: Vital AF 1.2 Cal Liquid 1,000 ML 20 ML GT (12:20)
[2021-07-18] MEDS: dexAMETHasone 4 MG Tablet 6 MG GT (12:31)
[2021-07-18] MEDS: Propofol 10MG/Ml 1,000 MG/100 ML Bottle 4.8 MG CONT INF (12:35)
--- NOTE | 2021-07-18 15:02 | PCM.PN.HOSP ---
Subjective Subjective Patient was seen and examined. He was intubated yesterday. Remains slightly hypotensive. No other complaints Objective Data Objective Data Vital Signs: Vital Signs Temp Pulse Resp BP Pulse Ox 99.3 F H 97 47 H 105/68 91 07/18/21 08:00 07/18/21 13:32 07/18/21 13:32 07/18/21 10:00 07/18/21 13:29 Oxygen Flow Rate (L/min) [At 10 REST with Oxygen] Oxygen Flow Rate (L/min) [ 10 AMBULATING with Oxygen #1] Oxygen Flow Rate (L/min) 100 Oxygen Delivery Method Mechanical Ventilator Weight: 74.389 kg Body Mass Index (BMI) 25.2 Intake & Output: Intake and Output for Last 24 Hours 07/16/21 07/17/21 07/18/21 23:59 23:59 23:59 Intake Total 500 / 500 524.46 / 549.26 357.77 / 357.77 Output Total 1550 / 1550 2250 / 2250 750 / 750 Balance -1050 / -1050 -1725.54 / -1700.74 -392.23 / -392.23 Lab / Micro Data Result Diagrams: 07/18/21 04:50 07/18/21 04:50 Labs: Laboratory Results - last 24 hr 07/18/21 04:50: WBC 13.2 H, RBC 4.98, Hgb 15.1, Hct 44.9, MCV 90.2, MCH 30.3, MCHC 33.6, RDW Std Deviation 43.3, RDW Coeff of Sue 13.1, Plt Count 230, MPV 10.5, Immature Gran % (Auto) 1.500 H, Neut % (Auto) 85.3 H, Lymph % (Auto) 8.3 L, [place] % (Auto) 4.5, Eos % (Auto) 0.2, Baso % (Auto) 0.2, Absolute Neuts (auto) 11.3 H, Absolute Lymphs (auto) 1.10, Nucleated RBC % 0 07/18/21 04:50: Sodium 129 L, Potassium 6.3 H*, Chloride 94 L, Carbon Dioxide 28.0, Anion Gap 7, BUN 29 H, Creatinine 1.37 H, Estim Creat Clear Calc 56.98, Est GFR (MDRD) Af Amer 67, Est GFR (MDRD) Non-Af 56 L, BUN/Creatinine Ratio 21.2 H, Glucose 86, Calcium 8.3 L, Phosphorus 5.8 H, Magnesium 2.1, Total Bilirubin 0.80, AST 66 H, ALT 113 H, Alkaline Phosphatase 118 H, Total Protein 7.0, Albumin 1.9 L, Globulin 5.1 H, Albumin/Globulin Ratio 0.4 L Micro: Microbiology 07/16/21 06:00 Urine, Clean Catch Legionella Antigen - Final 07/16/21 06:00 Urine, Clean Catch Streptococcus pneumoniae Antigen (M - Final 07/06/21 08:35 Blood Culture (Wb) - Anticubital Left Blood Culture - Final No growth in 5 days. 07/06/21 08:50 Blood Culture (Wb) - Right Hand Blood Culture - Final No growth in 5 days. 07/06/21 08:23 Nasal Secretion SARS-CoV-2 Antigen (Rapid) - Final SARS-CoV-2 (COVID 19) ABG Data ABG results: ABG 07/17/21 07/18/21 21:27 04:47 Specimen Type ART ART Sample Site L Radial R Radial pH 7.39 7.40 Bicarbonate Actual 30.0 H 27.8 H Total CO2 32 29 Base Excess 5 H 3 H O2 Saturation 94 L 91 L O2 % 100 100 ABG pCO2 49.8 H 44.8 ABG pO2 71 L 61 L Bruce Test N/A Positive Respiration Rate 12 12 O2 Delivery Device Adult Vent Adult Vent Vent Mode APRV BiLevel Clinical Comments PHIGH28 THIGH4.5 pH28. TH 4.5 Radiography Diagnostic Testing: Radiology Impression Chest X-Ray 07/17/21 19:09 IMPRESSION: Findings consistent with bilateral Covid 19 pneumonia with increasing airspace disease in the left upper lobe but improving aeration in the right lower lobe Electronically Signed: Coleman Barrow MD at 22:11 EDT , Service support , Chest X-Ray 07/18/21 06:30 IMPRESSION: Pulmonary findings appear worse. Electronically Signed: Ismael Patel MD at 8:12 EDT , Service support , Physical Exam Narrative Physical exam: General: Sedated, intubated, on mechanical ventilator HEENT: Atraumatic Oral: Moist Mucosa Neck: Supple Lungs: Diminished to auscultation Cardiovascular: HS I+II, regular, no murmurs Abdomen: Bowel Sounds Present, Soft, Non Tender Extremities: No edema Assessment & Plan Assessment/Plan (1) Hyponatremia: (2) COVID-19: (3) Acute hypoxemic respiratory failure: PLAN: 1. Acute hypoxic respiratory failure secondary to acute COVID-19 pneumonia, worsening Intubated, mechanical ventilator Has completed remdesivir Continue on Decadron, continue empiric Lovenox, Levaquin Urine Legionella and streptococcal antigen are negative Pulmonology following 2. Hyperkalemia, potassium 6.3, status post Kayexalate Will repeat BMP 3. CK, prerenal, in a patient with baseline creatinine of <1, secondary to dehydration Will DC Lasix, tube feeds to be started, will trend labs 4. Acute on chronic hyponatremia, sodium is 129 now Secondary to dehydration, will trend 5. Hypertension, blood pressure now relatively low, Amlodipine discontinued Charges/Coding Visit Charges Inpatient E&M: 05904 Subs Hosp L2
[2021-07-18 16:47] LABS: Anion Gap 6 (5-15); BUN 39 mg/dL (7-18); BUN/Creat Ratio 28.1 RATIO (10-20); Calcium,Total 8.7 mg/dL (8.5-10.1); Chloride 96 mmol/L (98-107); Creatinine, Serum 1.39 mg/dL (0.70-1.30); EST Glomerular Filtration Rate 55 mL/min (>60); Est Glom Filt Rate - Afr Amer 66 mL/min (>60); Estimated Creatinine Clearance 56.17 ml/min; Glucose 131 mg/dL (74-106); Potassium 5.4 mmol/L (3.5-5.1); Sodium Level 131 mmol/L (136-145)
--- NOTE | 2021-07-18 16:53 | CASEMGMT ---
SW participated in ICU rounds this morning. SW called , offered support. SW will continue to follow, is available for support to as needed. DEE Rubio
--- NOTE | 2021-07-18 18:49 | RAD_ITS ---
STUDY: X-RAY CHEST REASON FOR EXAM: Male, 65 years old. Possible pneumothorax TECHNIQUE: Frontal view COMPARISON: None. FINDINGS: Nasogastric tube extending into the stomach. Endotracheal tube with tip 55 mm above the gómez. The lungs are expanded with no evidence of large pneumothorax. Although small pneumothorax cannot be excluded due to extensive subcutaneous emphysema. Bilateral patchy infiltrates. Normal size heart. Pneumomediastinum is noted. Normal visualized pulmonary arteries. Normal visualized aortic arch and descending thoracic aorta. Degenerative changes of the thoracic spine. Normal visualized ribs, clavicles, and shoulders. There is bilateral moderate subcutaneous emphysema. There is no demonstrated abnormality of the visualized soft tissue structures of the upper abdomen. RAD/Chest 1 View (Portable) IMPRESSION: The lungs are expanded with no evidence of large pneumothorax. Although small pneumothorax cannot be excluded due to extensive subcutaneous emphysema. Bilateral patchy infiltrates. Pneumomediastinum is noted. Electronically Signed: Adams Gaines DO at 21:31 EDT Tel [phone], Service support ,
[2021-07-18] MEDS: 0.9% Normal Saline 1,000 ML 999 ML IV (19:05)
[2021-07-18] MEDS: Sodium Bicarbonate 8.4% 50 ML Syringe 50 MEQ IV ×2 (19:05→19:15)
[2021-07-18 19:15] LABS: Base Excess 7 mmol/L (-2 to +2); Bicarbonate 33.8 mmol/L (22-26); Blood Gas Specimen Type ART; FI02 100; Mode BiLevel; O2 Delivery Device Adult Vent; PO2 53 mmHG (75-100); SITE L Radial; SO2 81 % (95-99); Total Carbon Dioxide 36 mmol/L; pCO2 70.5 mmHg (35-45); pH 7.29 (7.35-7.45)
--- NOTE | 2021-07-18 20:10 | PN.HOSP_ITS ---
Hospitalist Note Central venous catheter placement: Timeout: Emergent Reason for placement: Hypotension The patient was placed in supine position in the left groin was cleaned with chlorhexidine. The proceduralist after washing her hands was already gowned and gloved given the patient's Covid status and placed a sterile gown and glove. The area was then sterilely draped and recleaned. The left femoral artery was palpated and using a finder needle the left femoral vein was identified and ca nnulated via Seldinger technique. The vein was then dilated and the central venous catheter was placed over the guidewire. The guidewire was then removed and caps were placed. All ports were flushed with sterile saline and had fluid draw. The area was then cleaned and dressed with a sterile occlusive dressing.
--- NOTE | 2021-07-18 20:13 | PCM.HOSP.N ---
Hospitalist Note I was called to the bedside secondary to the patient developing hypoxemia and hypotension. Chest x-ray was obtained and worsening pneumomediastinum was identified. There was no signs of pneumothorax. Given hypotension a sterile left central venous catheter was placed in the groin. The head and neck area were avoided secondary to subcutaneous air and crepitus. Levophed was initiated and titrated to maintain a map of 65. The patient's blood pressure did improve and his hypoxemia improved to the point where he had an oxygen saturation of 92%. Family was called in and we did discuss the grave condition of their loved one. CODE STATUS was changed to DNR CCA.
--- NOTE | 2021-07-18 20:20 | NURSING ---
Pt's at bedside as finished placing Lt fem TLC; pt's condition explained in detailed and that prognosis was poor. Pt's states I wish I would've brought in his DNR. Poornima stated that Fazal did not want CPR. Informed spouse that we absolutely can change his code status to respect his wishes and she agreed. ETT and ventilator to remain in place, no progression with vasopressors; cont care as currently in process. Remaining family notified of pt condition and explained that visitation will be short but allowed.
--- NOTE | 2021-07-18 20:40 | CASEMGMT ---
SOCIAL WORK Patient with change in status. Family was called by nursing. This worker assisted in escorting family to ICU from ER. Much emotional support provided to multiple family members. En Ozuna, [employer], PHYTOPATHOLOGIST
--- NOTE | 2021-07-18 22:45 | NURSING ---
Pt's remains at bedside, rhythm change on monitor and p.ox dropped to 60% Entered room to be w/ for comfort and explained the changes that were happening. Remained at bedside until pt was asystole and not breathing. Emotional support provided.
--- NOTE | 2021-07-18 23:18 | PCM.PN.BLA ---
Progress Note Notified by nursing team that patient on 07/18/2021 at 2255.
--- NOTE | 2021-07-19 00:03 | PCM.DEATH ---
Preliminary Cause of Preliminary Cause of Preliminary Cause of : Acute hypoxemic respiratory failure Principle Diagnosis Problem List: Active and Suspected Problems (Updated 07/07/21 @ 13:[address] Marta Borrego DO) Hyponatremia (Acute) COVID-19 (Acute) Acute hypoxemic respiratory failure (Acute) Acute hypokalemia (Acute) Thrombocytopenia associated with COVID-19 (Acute) Hospital Course hpi: ELBA KIRK, presented to emergency department with 10-day history of feeling sick. Three days prior to coming to emergency department he got more short of breath. Also he was having vomiting and diarrhea, myalgias, fever, headache and congestion during this time. Patient was not vaccinated for COVID-19. At the emergency room where he was found to have diffuse dense infiltrates on his CAT scan and was COVID-19 positive. Patient received dexamethasone as well as potassium chloride at the emergency room. Hospital course: Rapid COVID-19 antigen was positive. Patient received supplemental oxygenation which was escalated in due course.He received Decadron and remdesivir. He was hypokalemic and he received replacement. His blood pressure medications were initially continued. Patient continued to worsen in his hypoxia and required airrvo. He spiked a temperature and antibiotics were started. Aerosol was added to his regimen. Patient continued to worsen and supervisor stage carpentry was consulted. Patient was put on diuretic challenge. Urine Legionella and streptococcal antigen were checked and found to be negative. Patient continued to have respiratory distress and was placed on BiPAP and then AVAPS with high FiO2. Patient was eventually transferred to intensive care unit. Patient was intubated and placed on mechanical ventilation. He developed pneumomediastinum. Patient developed hyperkalemia and was given Kayexalate and MiraLAX. Patient developed CK. Lasix was discontinued. Tube feeds was initiated. Patient developed hypotension. Central line was placed. Levophed was initiated. Family was called in and prognosis discussed with them. CODE STATUS was changed to DNR CCA due to grin prognosis. Patient on 07/18/2021 at 2255. was reported by nursing staff to physician. Date of : 07/18/2021. Time of : [id number] Immediate cause of (final disease of condition resulting in ): Acute hypoxemic respiratory failure duration: Days/month/years: Weeks Listed conditions leading to cause of (due to or as a consequence of) : COVID-19 infection Day/month/years: Weeks Listed other significant conditions contributing to but not resulting in the underlying cause of : Hypertension Did tobacco contribute to : No Visit Charges Inpatient E&M: 40760 Disch Hosp
== END 2021-07-18 22:55 | DRG 208 ==
LOC: ED 10:06 → MS3 12:24 → ICU 07-17 18:55
PROVIDERS: Internal Medicine; Nurse Practitioner Family; Emergency Provider Emergency Medicine; PCP Family Medicine; Visit Provider Internal Medicine
DX: U07.1 COVID-19 (principal); J12.82 Pneumonia due to coronavirus disease 2019; J96.01 Acute respiratory failure with hypoxia; E87.1 Hypo-osmolality and hyponatremia; N17.9 Acute kidney failure, unspecified; J98.2 Interstitial emphysema; I95.9 Hypotension, unspecified; E87.5 Hyperkalemia; E86.0 Dehydration; E87.6 Hypokalemia; D69.59 Other secondary thrombocytopenia; I10 Essential (primary) hypertension; M19.90 Unspecified osteoarthritis, unspecified site; R11.2 Nausea with vomiting, unspecified; R19.7 Diarrhea, unspecified; Z79.899 Other long term (current) drug therapy
CPT/HCPCS: 31500; 31720; 36415; 36600; 71045; 71275; 80048; 80053; 81001; 82803; 83605; 83735; 84100; 84484; 85025; 85027; 85610; 85730; 87040; 87070; 87205; 87426; 87449; 93005; 94002; 94003; 94640; 94660; 94667; 94668; 94762; 97802; 97803; 99251; 99285; J7030; J7050; Q9967; A4216; G0463; J1940; J2405; J3010